=== PATIENT | male | born 1945 | race Caucasian/White ===

== ENCOUNTER 2016-11-04 08:07 | Emergency (ER) | payer MEDICARE, OTHER, MEDICAID ==
[2016-11-04 08:25] VITALS: BP 156/71
--- NOTE | 2016-11-04 08:43 | UC ---
Hand/Wrist HPI - HPI Summary HPI Summary: FOOSH LEFT HAND 1 MONTH AGO AFTER SLIPPING ON ICE. WRIST PAIN HAS IMPROVED BUT PT HAS PERSISTENT PAIN AND SWELLING IN THUMB. - History Of Current Complaint Chief Complaint: UCUpperExtremity Stated Complaint: WRIST INJURY Time Seen by Provider: 11/04/16 08:36 Hx Obtained From: Patient Onset/Duration: Sudden Onset, Lasting Weeks, Still Present Severity Initially: Moderate Severity Currently: Mild Pain Intensity: 1 Pain Scale Used: 0-10 Numeric Character Of Pain: Aching Aggravating Factor(s): Movement Alleviating: Rest Associated Signs And Symptoms: Positive: Swelling Related History: Dominant Hand Right - Allergies/Home Medications Allergies/Adverse Reactions: Allergies Allergy/AdvReac Type Severity Reaction Status Date / Time Colesevelam [From Welchol] Allergy Severe Diarrhea Verified 11/04/16 08:16 Oxycodone Allergy Intermediate Rash Verified 11/04/16 08:16 Statins Allergy Intermediate Rash Verified 11/04/16 08:16 Dust Mite Extract Allergy Mild See Comment Verified 11/04/16 08:16 Molds & Smuts Allergy Mild Rash Verified 11/04/16 08:16 Atorvastatin [From Lipitor] Allergy Unknown Verified 11/04/16 08:16 Reaction Details Cholestyramine Allergy Rash Verified 11/04/16 08:16 Fenofibrate Allergy Unknown Verified 11/04/16 08:16 Reaction Details Gemfibrozil Allergy Unknown Verified 11/04/16 08:16 Reaction Details Niacin [From Niaspan] Allergy Unknown Verified 11/04/16 08:16 Reaction Details Pravastatin Allergy Unknown Verified 11/04/16 08:16 Reaction Details Simvastatin [From Zocor] Allergy Unknown Verified 11/04/16 08:16 Reaction Details Tamsulosin [From Flomax] Allergy Unknown Verified 11/04/16 08:16 Reaction Details cat dander* Allergy Intermediate Sneezing Uncoded 08/17/16 15:31 Home Medications: Home Medications Docusate CAP* [Colace Cap*] 1 tab PO PRN 11/04/16 [History] Metoprolol Tartrate TAB* [Lopressor TAB*] 1 tab PO DAILY 11/04/16 [History Confirmed 11/04/16] Polyethylene Glycol 3350* [Miralax*] 1 packet PO PRN 11/04/16 [History] PMH/Surg Hx/FS Hx/Imm Hx Endocrine History Of: Denies: Diabetes, Thyroid Disease Cardiovascular History Of: Reports: Cardiac Disorders - poss will need pacemaker , Hypertension Denies: Pacemaker/ICD Respiratory History Of: Reports: Asthma Denies: COPD GI/ History Of: Denies: Ulcer, Renal Disease Neurological History Of: Reports: TIA - 2015 Psychological History Of: Reports: Anxiety Cancer History Of: Reports: Prostate Cancer - Surgical History Surgical History: Yes Surgery Procedure, Year, and Place: Deviated septum surgery;. 2011 - Bone spur removal Left foot. VASECTOMY - Family History Known Family History: Positive: Cardiac Disease, Diabetes Family History: Fhx of HLD - Social History Alcohol Use: None Substance Use Type: None Smoking Status (MU): Never Smoked Tobacco - Immunization History Most Recent Influenza Vaccination: 2015/2016 Review of Systems Constitutional: Negative Skin: Negative Respiratory: Negative Cardiovascular: Negative Gastrointestinal: Negative Musculoskeletal: Arthralgia, Decreased ROM, Edema All Other Systems Reviewed And Are Negative: Yes Physical Exam Triage Information Reviewed: Yes Appearance: Well-Appearing, No Pain Distress, Well-Nourished Vital Signs: Initial Vital Signs Temp 96.9 F 11/04/16 08:17 Pulse 64 11/04/16 08:17 Resp 17 11/04/16 08:17 BP 156/71 11/04/16 08:17 Pulse Ox 98 11/04/16 08:17 Vital Signs Reviewed: Yes Eyes: Positive: Conjunctiva Clear ENT: Positive: Hearing grossly normal Neck: Positive: Supple Respiratory: Positive: No respiratory distress, No accessory muscle use Cardiovascular: Positive: Pulses Normal Abdomen Description: Positive: Soft Musculoskeletal: Positive: ROM Limited @ - LEFT THUMB AND WRIST, Edema @ - SLIGHT SWELLING LEFT 1ST MCP JOINT, Other: - NEG FINKELSTEINS. MILD TENDERNESS OVER CARPAL BONES AND OVER ANATOMICAL SNUFFBOX LEFT WRIST Neurological: Positive: Alert Psychological: Positive: Age Appropriate Behavior Skin: Negative: rashes Diagnostics - Radiology LEFT WRIST XRAY Xray Interpretation: Positive (See Comments) - OSTEOARTHRITIS WITH A PROBABLE NONDISPLACED FRACTURE OF THE SCAPHOID Radiology Interpretation Completed By: Radiologist LEFT THUMB XRAY Xray Interpretation: No Acute Changes Radiology Interpretation Completed By: Radiologist Hand/Wrist Course/Dx - Differential Dx/Diagnosis Provider Diagnoses: LEFT SCAPHOID FRACTURE Discharge - Discharge Plan Condition: Stable Disposition: HOME Patient Education Materials: Scaphoid Fracture (ED) Referrals: Pawel Wilson MD [Medical Doctor] - 1 Week Leo Cardona MD [Primary Care Provider] - If Needed Additional Instructions: KEEP THE SPLINT ON AT ALL TIMES UNTIL OTHERWISE ADVISED BY ORTHO. OKAY TO REMOVE FOR A QUICK SHOWER.
--- NOTE | 2016-11-04 09:10 | RAD ---
HISTORY: Subacute trauma, persistent left wrist pain COMPARISONS: None VIEWS: 3, Frontal, lateral, and oblique views left wrist FINDINGS: BONE DENSITY: Normal. BONES: There is a probable nondisplaced fracture of the scaphoid. 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 ALIGNMENT: There is no dislocation. SOFT TISSUES: Unremarkable. OTHER FINDINGS: None. IMPRESSION: OSTEOARTHRITIS WITH A PROBABLE NONDISPLACED FRACTURE OF THE SCAPHOID
--- NOTE | 2016-11-04 09:20 | RAD ---
Indication: Fall, persistent left thumb pain. 3 views of the left thumb demonstrates no fracture. There is bony fragment which may be sequela from prior injury at the dorsal aspect of the interphalangeal joint. Degenerative changes of the trapezium first metacarpal joint is noted. IMPRESSION: Likely sequela of prior injury with no definite recent fracture.
== END 2016-11-04 09:48 | disposition home or self-care (01) ==
LOC: UCEAST 08:07
DX: M25.532 Pain in left wrist (principal); M19.032 Primary osteoarthritis, left wrist; M79.645 Pain in left finger(s); Z88.5 Allergy status to narcotic agent; Z88.8 Allergy status to other drugs, medicaments and biological substances
CPT/HCPCS: 99213; G0463

== ENCOUNTER 2016-11-25 04:26 | Observation (INO) | payer MEDICARE, OTHER ==
[2016-11-25] MEDS ORDERED: Aspirin Low Dose CHEW TAB* 81 MG PO ONE (04:55)
--- NOTE | 2016-11-25 05:20 | ED ---
Ethan Butler Billy, scribed for Torrey Patton MD on 11/25/16 at 0452 . HPI Chest Pain - HPI Summary HPI Summary: Patient is a 71 year-old male coming to [facility] presenting with constant left anterior chest pain since 0240 this morning. Severity 2/10. He states that the pain is worse with deep breaths. He has had similar symptoms in the past before , although he cannot recall his last episode prior to today. He is unable to describe the quality of his pain today, but he states it is "constant but not stabbing." ASA taken [employer]. He has had 2 weeks of cold-like symptoms prior to today. Denies any fevers, although Dr. Cardona recently prescribed him antibiotics. Follows Dr. Khan for cardiology. - History of Current Complaint Chief Complaint: EDChestPainROMI Time Seen by Provider: 11/25/16 04:48 Hx Obtained From: Patient Onset/Duration: Started Hours Ago, Still Present Time of Onset: 02:40 Timing: Constant Initial Severity: Moderate Current Severity: Moderate Pain Intensity: 2 Pain Scale Used: 0-10 Numeric Chest Pain Location: Left Anterior Chest Pain Radiates: No Aggravating Factor(s): Deep Breaths Alleviating Factor(s): Nothing Associated Signs and Symptoms: Positive: Chest Pain - Additional Pertinent History Primary Care Physician: TOBIAS - Allergy/Home Medications Allergies/Adverse Reactions: Allergies Allergy/AdvReac Type Severity Reaction Status Date / Time Colesevelam [From Welchol] Allergy Severe Diarrhea Verified 11/25/16 05:47 Oxycodone Allergy Intermediate Rash Verified 11/25/16 05:47 Statins Allergy Intermediate Rash Verified 11/25/16 05:47 Dust Mite Extract Allergy Mild See Comment Verified 11/25/16 05:47 Molds & Smuts Allergy Mild Rash Verified 11/25/16 05:47 Atorvastatin [From Lipitor] Allergy Unknown Verified 11/25/16 05:47 Reaction Details Cholestyramine Allergy Rash Verified 11/25/16 05:47 Fenofibrate Allergy Unknown Verified 11/25/16 05:47 Reaction Details Gemfibrozil Allergy Unknown Verified 11/25/16 05:47 Reaction Details Niacin [From Niaspan] Allergy Unknown Verified 11/25/16 05:47 Reaction Details Pravastatin Allergy Unknown Verified 11/25/16 05:47 Reaction Details Simvastatin [From Zocor] Allergy Unknown Verified 11/25/16 05:47 Reaction Details Tamsulosin [From Flomax] Allergy Unknown Verified 11/25/16 05:47 Reaction Details cat dander* Allergy Intermediate Sneezing Uncoded 11/25/16 05:47 Home Medications: Home Medications Verapamil SR TAB* [Calan Sr TAB*] 120 mg PO QPM 11/25/16 [History Confirmed ] PMH/Surg Hx/FS Hx/Imm Hx Endocrine/Hematology History: Denies: Hx Diabetes, Hx Thyroid Disease Cardiovascular History: Reports: Hx Hypercholesterolemia, Hx Hypertension Denies: Hx Pacemaker/ICD Respiratory History: Reports: Hx Asthma Denies: Hx Chronic Obstructive Pulmonary Disease (COPD) GI History: Denies: Hx Ulcer History: Reports: Other Problems/Disorders - prostate CA in 2014 Denies: Hx Renal Disease Sensory History: Reports: Hx Contacts or Glasses Denies: Hx Hearing Aid Opthamlomology History: Reports: Hx Contacts or Glasses Neurological History: Reports: Hx Transient Ischemic Attacks (TIA) - 2014 Psychiatric History: Reports: Hx Anxiety Denies: Hx Panic Disorder - Cancer History Cancer Type, Location and Year: prostate CA, 2015 - Surgical History Surgery Procedure, Year, and Place: Deviated septum surgery;. 2011 - Bone spur removal Left foot. VASECTOMY Infectious Disease History: Yes Infectious Disease History: Reports: Hx Shingles - 2013 Denies: Hx Clostridium Difficile, Hx Hepatitis, Hx Human Immunodeficiency Virus (HIV), Hx of Known/Suspected MRSA, Hx Tuberculosis, Hx Known/Suspected VRE , Hx Known/Suspected VRSA, History Other Infectious Disease, Traveled Outside the [place] in Last 30 Days - Family History Known Family History: Positive: Cardiac Disease, Diabetes Family History: Fhx of HLD - Social History Alcohol Use: None Substance Use Type: Reports: None Hx Tobacco Use: No Smoking Status (MU): Never Smoked Tobacco Review of Systems Negative: Fever Positive: Chest Pain Positive: Other - left wrist sprain All Other Systems Reviewed And Are Negative: Yes Physical Exam Triage Information Reviewed: Yes Vital Signs On Initial Exam: Initial Vitals Temp Pulse Resp BP Pulse Ox 97.9 F 62 18 154/90 98 11/25/16 04:28 11/25/16 04:28 11/25/16 04:28 11/25/16 04:28 11/25/16 04:28 Vital Signs Reviewed: Yes Appearance: Positive: Well-Appearing, No Pain Distress Skin: Positive: Warm Head/Face: Positive: Normal Head/Face Inspection Eyes: Positive: SHERRY ENT: Positive: Hearing grossly normal Neck: Positive: Supple Respiratory/Lung Sounds: Positive: Clear to Auscultation, Breath Sounds Present Cardiovascular: Positive: RRR Abdomen Description: Positive: Nontender, Soft Bowel Sounds: Positive: Present Musculoskeletal: Positive: Strength/ROM Intact Neurological: Positive: Sensory/Motor Intact, Alert, Oriented to Person Place, Time Diagnostics - Vital Signs Vital Signs Temp Pulse Resp BP Pulse Ox 11/25/16 04:28 97.9 F 62 18 154/90 98 - Laboratory Result Diagrams: 11/25/16 05:15 11/25/16 05:15 Lab Statement: Any lab studies that have been ordered have been reviewed, and results considered in the medical decision making process. - Radiology CXR Xray Interpretation: No Acute Changes Radiology Interpretation Completed By: ED Physician - EKG 0443 EKG Interpretation: NSR 60 bpm, non-specific ST abnormalities. Chest Pain Course/Dx - Diagnoses Provider Diagnoses: ACS (acute coronary syndrome) - Provider Notifications Discussed Care Of Patient With: Dr. Lara (hospitalist) @ 0545: accepts admission. Discharge - Discharge Plan Condition: Fair Disposition: ADMITTED TO [facility] Referrals: Leo Cardona MD [Primary Care Provider] - The documentation as recorded by the Ethan pope Billy accurately reflects the service I personally performed and the decisions made by me, Torrey Patton MD.
[2016-11-25 05:33] LABS: Hematocrit 40 % (42-52); Hemoglobin 13.6 g/dl (14.0-18.0); Mean Corpuscular HGB Conc 34 g/dl (31-36); Mean Corpuscular Hemoglobin 30 pg (27-31); Mean Corpuscular Volume 89 fL (80-94); Mean Platelet Volume 8 um3 (7.4-10.4); Red Blood Count 4.55 10^6/ul (4.0-5.4); Red Cell Distribution Width 13 % (10.5-15); White Blood Count 5.2 10^3/ul (3.5-10.8)
[2016-11-25 06:04] LABS: Albumin 3.9 g/dL (3.2-5.2); BUN/Creatinine Ratio 13.3 (8-20); Calcium 9.5 mg/dL (8.6-10.3); EGFR African American 131.3 (>60); EGFR Non-African American 102.1 (>60); Globulin 2.9 g/dL (2-4); Magnesium 2.3 mg/dL (1.9-2.7); Potassium 3.4 mmol/L (3.5-5.0); Total Bilirubin 0.4 mg/dL (0.2-1.0); Total Protein 6.8 g/dL (6.4-8.9)
[2016-11-25] MEDS ORDERED: clonazePAM TAB(*) 0.5 MG PO PRN (06:08)
[2016-11-25] MEDS ORDERED: Albuterol HFA INHALER* 8 gm MDI INH PRN (06:08)
[2016-11-25] MEDS ORDERED: Potassium Chlor TAB* 20 MEQ TAB.ER PO SCH (08:00)
--- NOTE | 2016-11-25 08:01 | RAD ---
INDICATION: Chest pain COMPARISON: Most recent comparison chest x-rays dated August 12, 2016 TECHNIQUE: PA and lateral views of the chest were obtained. FINDINGS: The heart and mediastinum are normal in size and contour. The lungs are grossly clear. There is no evidence of large pleural effusion. Visualized bones are normal for the patient's age. There is no radiographic evidence of free air beneath the diaphragm IMPRESSION: No radiographic evidence of acute cardiopulmonary disease.
[2016-11-25] MEDS ORDERED: Metoprolol Tartrate TAB* 25 MG PO SCH (08:30)
[2016-11-25] MEDS ORDERED: Losartan TAB* 25 MG PO SCH (09:00)
[2016-11-25] MEDS ORDERED: Triamterene/HCTZ 37.5-25 MG* CAP PO SCH (09:00)
[2016-11-25] MEDS ORDERED: Azelastine 0.15% NASAL(NF) 30 ML BTL BOTH NARES SCH (09:00)
[2016-11-25] MEDS ORDERED: Docusate CAP* 100 MG PO SCH (09:00)
[2016-11-25] MEDS ORDERED: Verapamil SR TAB* 240 MG PO SCH ×3 (09:00→18:00)
[2016-11-25] MEDS ORDERED: Lisinopril TAB* 10 MG PO SCH (09:00)
[2016-11-25] MEDS ORDERED: Aspirin EC Low Dose* 81 MG TAB.EC PO SCH (09:00)
[2016-11-25] MEDS ORDERED: Polyethylene Glycol 3350* 17 GM PACKET PO SCH (09:00)
--- NOTE | 2016-11-25 10:14 | HP ---
HISTORY AND PHYSICAL: DATE OF ADMISSION: 11/25/16 CHIEF COMPLAINT: Chest pain. HISTORY OF PRESENT ILLNESS: The patient is a 71-year-old gentleman who said about 2:40 this morning he woke up to urinate which he often does, and then suddenly felt some chest pain. He was not exerting himself. The patient was about 2/10 in severity. It was left hand side of his chest, and was an achy type pain. He has had no radiation of the pain. No shortness of breath. He was not sweating. He was not dizzy. When he was got to the hospital, his anxiety was relieved and his pain resolved without any medications. It should be noted he worked out just yesterday for 45 minutes with no pain. PAST MEDICAL HISTORY: Significant for hypertension, hyperlipidemia, prostate cancer, status post radiation therapy in 2014, BPH, anxiety, and GERD. MEDICATIONS: His current medications are as follows: 1. Verapamil 120 mg in the evening. 2. Astepro one spray both nares twice daily. 3. Aspirin 81 mg daily. 4. Albuterol inhaler one puff four times a day as needed. 5. Docusate one tab twice a day. 6. Calcium carbonate with cholecalciferol one tablet twice a week. 7. Lisinopril 40 mg daily. 8. Evolocumab 140 mg subcu q. 14 days. 9. Flaxseed two capsules daily. 10. Losartan 50 mg twice daily. 11. Ibuprofen 200 mg every 8 hours as needed. 12. Metoprolol tartrate one tab daily. 13. Potassium chloride 20 mEq twice daily. 14. MiraLax one pack daily. 15. Verapamil 240 mg in the morning. 16. Dyazide 37.5/25 one capsule daily. 17. Clonazepam 0.5 mg three times a day as needed. 18. Tylenol 650 mg every 6 hours as needed. ALLERGIES/ADVERSE REACTIONS: 1. WELCHOL. 2. OXYCODONE. 3. STATINS. 4. DUST MITE EXTRACT, MOLDS AND SMUTS. 5. LIPITOR. 6. CHOLESTYRAMINE. 7. FENOFIBRATE. 8. GEMFIBROZIL. 9. NIACIN. 10. PRAVASTATIN. 11. SIMVASTATIN. 12. TAMSULOSIN. 13. CAT DANDER. FAMILY HISTORY: Mother at 83 from diabetes and NM. Father at age 67 of an unknown cause. SOCIAL HISTORY: No tobacco, alcohol, or recreational drug use. Retired. Works for [employer]. He is . His , Yanet Ramirez, is his healthcare proxy. He has two children. REVIEW OF SYSTEMS: A 14-point review of systems was completed with the patient. All pertinent positives and negatives are in the history of present illness; otherwise is negative. PHYSICAL EXAMINATION GENERAL: Pleasant gentleman lying in bed, in no acute distress. VITAL SIGNS: Blood pressure 150/74, pulse ox 97%, respiratory rate 14 breaths per minute, heart rate 65 beats per minute, temperature 97.9 degrees. HEENT: Normocephalic, atraumatic. Pupils are equal, round, and reactive to light. Moist mucous membranes. NECK: Supple. No JVD, bruits, palpable thyroid, or lymphadenopathy. CHEST: Clear to auscultation and percussion bilaterally. CARDIOVASCULAR: S1, S2 appreciated. Regular rate and rhythm. ABDOMEN: Positive bowel sounds in all 4 quadrants. Soft, nontender, and nondistended. No hepatosplenomegaly. EXTREMITIES: No cyanosis, clubbing, or edema; +2 peripheral pulses bilaterally. NEUROLOGIC: Alert and oriented x3. Moves all extremities. SKIN: No rashes or abnormalities. DIAGNOSTIC STUDIES/LAB DATA: White count 5.2, hemoglobin 13.6, hematocrit 40, platelets 317. Sodium 140, potassium 3.4, chloride 105, CO2 28, BUN 10, creatinine 0.75, glucose 96. INR 0.89. Chest x-ray, preliminary - it looks like no apparent infiltrates. EKG shows normal sinus rhythm at 60 beats per minute. He has normal axis. No acute ST-T wave changes. ASSESSMENT AND PLAN: 1. Chest pain. I think it is unlikely to be cardiac in etiology. It was nonexertional. It is fairly atypical. However, he does have risk factors, and hasn't had a stress test in over a year. I will rule him out for an NM, get a nuclear stress test. If that is negative, he can likely leave later today. 2. Hypertension: Not well controlled. Continue current regimen and adjust medications accordingly. 3. Hyperlipidemia: He has an ALLERGY TO STATINS, mostly diet controlled, monitor. 4. Fluids, Electrolytes, Nutrition: NPO. Awaiting stress test. 5. Deep venous thrombosis prophylaxis: Heparin subcu. 6. The patient is a full code. TIME SPENT: Over 75 minutes were spent on this H and P, more than 40 minutes of which were spent in direct [id number] contact with the patient in evaluation, physical exam, counseling, and coordination of care. CC: Dr. Leo Cardona* [id number]/[facility] #: [id number] MTDD
[2016-11-25 11:12] VITALS: BP 166/79
[2016-11-25] MEDS ORDERED: Regadenoson* 0.4 MG/5 ML SYRINGE ONE (11:39)
--- NOTE | 2016-11-25 13:08 | RAD ---
Edited for charges. INDICATION: Chest pain, hypertension, family history of heart disease. COMPARISON: None. TECHNIQUE: 10.100 mCi of Tc-99m Myoview were administered IV. SPECT images of the heart were obtained. Later on the same day, under the direction of Dr. Motley, the patient was given an IV injection of a pharmacologic stress agent. Subsequently, the patient was given an IV injection of 25.900 mCi Tc-99m Myoview. SPECT images of the heart were obtained and a gated wall motion study was performed. FINDINGS: Gated wall motion images were obtained at stress and demonstrate wall motion to be within normal limits. Calculated left ventricular ejection fraction is 78 % at stress. Estimated LEFT ventricular end diastolic volume is 61 mL. TID 1.0. Based on review of the attenuation corrected and non corrected images the distribution of radiopharmaceutical within the myocardium on the stress and rest images is within normal limits. No fixed or reversible regions of hypoperfusion evident. IMPRESSION: 1. No evidence for stress induced myocardial ischemia or presence of an infarct. 2. Normal left ventricular wall motion and ejection fraction. ASSESSMENT: Low risk. Based on imaging criteria from ACC/AHA 2002 Guideline Update for the Management of Patients With Chronic Stable Angina Table 23. Noninvasive Risk Stratification. MTDD
--- NOTE | 2016-11-25 13:47 | DCNOTE ---
Patient seen this afternoon. No recurrence of symptoms. Feels well. On exam, RRR, s1 and s2 present, JOSE DAVID, lungs cta B/L, abd soft, NTND, BS+ D/C home with PCP f/u. Complete outpatient ABx therapy.
[2016-11-25] MEDS ORDERED: Heparin VIAL(*) 5000 UNITS/ML VIAL (FIVE THOUSAND) SUBCUT SCH (14:00)
[2016-11-25] MEDS ORDERED: Verapamil TAB* 120 MG PO SCH (18:00)
--- NOTE | 2016-11-26 04:38 | DS ---
DISCHARGE SUMMARY: DATE OF ADMISSION: 11/25/16 DATE OF DISCHARGE: 11/25/16 PRINCIPAL DISCHARGE DIAGNOSIS: Chest pain. SECONDARY DIAGNOSES: 1. Hypertension. 2. Hyperlipidemia. 3. Prostate cancer, status post radiation therapy. 4. Benign prostatic hypertrophy. 5. Anxiety. 6. Gastroesophageal reflux disease. DISCHARGE MEDICATION REGIMEN: 1. Klonopin 0.5 mg by mouth 3 times daily as needed for anxiety. 2. Triamterene/hydrochlorothiazide 37.5/25 mg 1 capsule by mouth daily. 3. Verapamil 360 mg by mouth daily. 4. MiraLax one packet by mouth daily. 5. Potassium chloride 20 mEq by mouth 2 times daily. 6. Metoprolol tartrate 25 mg by mouth daily. 7. Ibuprofen 200 mg by mouth every 8 hours as needed for pain. 8. Losartan 50 mg by mouth 3 times daily. 9. Flaxseed 2 capsules by mouth daily. 10. Evolocumab 140 mg subcutaneous every 2 weeks. 11. Lisinopril 40 mg by mouth daily. 12. Calcium carbonate and vitamin D 1 tablet by mouth 2 times a week. 13. Colace 1 tablet by mouth 2 times daily. 14. Albuterol 1 puff inhale 4 times daily as needed for shortness of breath or wheezing. 15. Aspirin 81 mg by mouth daily. 16. Astepro 1 spray in both nares 2 times daily. STUDIES DONE DURING HOSPITALIZATION: Chest x-ray, impression: No radiographic evidence of acute ca rdiopulmonary disease. Nuclear cardiac stress test, impression: No evidence for stress-induced myocardial ischemia or pres ence of an infarct. Normal left ventricular wall motion and ejection fraction. HISTORY OF PRESENT ILLNESS AND HOSPITAL SUMMARY: Please see the full history and physical by Dr. Ever Lara for full details. Briefly, Mr. 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 The patient was monitored overnight on telemetry, which was unremarkable. His troponins were trended, which remained negative and he had nuclear cardiac stress test that was also unremarkable. The patient's symptoms did not return. He will be discharged home. Follow up with his PCP as an outpatient. TIME SPENT: Total time spent on this discharge, 35 minutes. This is the summary of hospitalization, please see the full medical record for further details. [id number]/[facility] #: [id number]
== END 2016-11-25 14:23 | disposition home or self-care (01) ==
LOC: ED 04:26 → MEDTELE 06:47
PROVIDERS: ADMIT Internal Medicine; ATTEND Hospitalist
DX: R07.9 Chest pain, unspecified (principal); I10 Essential (primary) hypertension; E78.5 Hyperlipidemia, unspecified; Z85.46 Personal history of malignant neoplasm of prostate; F41.9 Anxiety disorder, unspecified; K21.9 Gastro-esophageal reflux disease without esophagitis; R00.1 Bradycardia, unspecified; Z79.82 Long term (current) use of aspirin; Z79.899 Other long term (current) drug therapy; Z88.8 Allergy status to other drugs, medicaments and biological substances; M19.032 Primary osteoarthritis, left wrist
CPT/HCPCS: 36415; 71020; 78452; 80053; 83605; 83735; 84484; 85025; 85610; 93005; 93017; 96372; 99284; A9270-GY; A9502; G0378; J1644; J2785

== ENCOUNTER 2017-07-10 08:45 | Day surgery (SDC) | payer MEDICARE, OTHER ==
[~2017-07-10 08:45] MED LIST: Acetaminophen TAB* 325 MG PO PRN; Buffered Lidocaine 0.9% SYRIN* 5 ML/SYR SYRINGE INTRADERM ONE
[2017-07-10] MEDS ORDERED: Acetaminophen TAB* 325 MG PO PRN (08:58)
[2017-07-10] MEDS ORDERED: fentaNYL* 50 MCG/ML 2 ML VIAL (100 MCG VIAL) ONE (09:40)
[2017-07-10] MEDS ORDERED: Midazolam* 1 MG/ML 2 ML VIAL (2 MG) ONE (09:40)
[2017-07-10 11:01] VITALS: BP 139/87
[2017-07-10] MEDS ORDERED: Povidone Iodine 5% OPTH* 30 ML BTL ONE (16:12)
[2017-07-10] MEDS ORDERED: Neomycin/Polymy/Dex OPHTH.OIN* 3.5 GM ONE (16:12)
[2017-07-10] MEDS ORDERED: Tropicamide 1% OPTH.SOL* BTL ONE (16:12)
[2017-07-10] MEDS ORDERED: Phenylephrine 2.5% OPTH.SOL* 2 ML BTL ONE (16:12)
[2017-07-10] MEDS ORDERED: acetaZOLAMIDE TAB* 250 MG ONE (16:12)
[2017-07-10] MEDS ORDERED: Buffered Lidocaine 0.9% SYRIN* 5 ML/SYR SYRINGE ONE (16:12)
[2017-07-10] MEDS ORDERED: Ketorolac 0.5% OPHTH (NF) 0.5 % 5 ML BTL ONE (16:12)
[2017-07-10] MEDS ORDERED: Cyclopentolate 1% OPTH.SOL* 2 ML BTL ONE (16:12)
[2017-07-10] MEDS ORDERED: Tetracaine 0.5% OPTH.SOL 4 ML* 1 DROP BTL ONE (16:12)
[2017-07-10] MEDS ORDERED: Lidocaine 1% MPF* 2 ML VIAL ONE (16:12)
--- NOTE | 2017-07-11 01:56 | OP ---
DATE OF OPERATION: 07/10/17 - [facility] DATE OF : 41 SURGEON: Romeo Mayo MD ANESTHESIOLOGIST: Toby Barcenas MD ANESTHESIA: Monitored anesthesia care. PRE-OP DIAGNOSIS: Cataract, left eye. POST-OP DIAGNOSIS: Cataract, left eye. OPERATIVE PROCEDURE: Cataract surgery of left eye. IMPLANTS: SN60WF 14.0 diopter lens to the left eye. COMPLICATIONS: None. DESCRIPTION OF PROCEDURE: The patient was given phenylephrine 2.5% and cyclopentolate 1% eye drops to the operative eye in the preoperative area. The patient was brought to the operating room where a time-out was taken to identify the correct patient, site, and side of the surgery. The patient's left eye was prepped and draped in the usual sterile fashion with 5% Betadine. A second time- out was taken to verify the correct patient, site, and side of surgery, and correct lens selection. A lid speculum was placed to the left eye. A 1-mm paracentesis blade was used to make a clear corneal incision in the inferotemporal position. Preservative-free 1% lidocaine was injected into the anterior chamber. DisCoVisc was then injected into the anterior chamber. A 2.75-mm keratome blade was used to make a triplanar incision at the superotemporal position. A cystotome initiated a capsulorrhexis, which was completed with Utrata forceps in a continuous and curvilinear manner. Hydrodissection of the lens was performed with BSS on a cannula. The lens could be spun in the capsular bag. The phacoemulsification handpiece was used with a ziorxk-ecn-arscmby technique to remove the nucleus in its entirety with 18.42 CDE. The I/A handpiece then removed the residual cortical lens material. DisCoVisc was injected to inflate the capsular bag. The planned SN60WF 14.0 diopter lens was injected into the capsular bag. The residual DisCoVisc was removed from the eye with the I/A handpiece. The corneal incisions were hydrated and no leaks occurred at physiologic pressure around 20 mmHg per palpation. The lid speculum was removed and drapes removed. Maxitrol ointment was placed on the surface of the operative eye. An adhesive patch and shield was placed on the operative eye. The patient was taken to the postoperative area in stable condition. [id number]/[facility] [place] #: [id number] [facility]
== END 2017-07-10 11:07 | disposition home or self-care (01) ==
LOC: OREAST 08:45
PROVIDERS: ATTEND Student in an Organized Health Care Education/Training Program
DX: H25.13 Age-related nuclear cataract, bilateral (principal); I10 Essential (primary) hypertension; E78.5 Hyperlipidemia, unspecified; J30.1 Allergic rhinitis due to pollen; Z85.46 Personal history of malignant neoplasm of prostate; Z88.8 Allergy status to other drugs, medicaments and biological substances; Z79.82 Long term (current) use of aspirin; I47.1 Supraventricular tachycardia; J45.909 Unspecified asthma, uncomplicated; Z86.73 Personal history of transient ischemic attack (TIA), and cerebral infarction without residual deficits; F41.9 Anxiety disorder, unspecified
CPT/HCPCS: A9270-GY; J2250; J3010; V2632

== ENCOUNTER 2017-07-17 07:11 | Day surgery (SDC) | payer MEDICARE, OTHER ==
[~2017-07-17 07:11] MED LIST changes: -Acetaminophen TAB* 325 MG PO PRN
[2017-07-17] MEDS ORDERED: Cyclopentolate 1% OPTH.SOL* 2 ML BTL ONE (08:03)
[2017-07-17] MEDS ORDERED: acetaZOLAMIDE TAB* 250 MG ONE (08:03)
[2017-07-17] MEDS ORDERED: Lidocaine 1% MPF* 2 ML VIAL ONE (08:03)
[2017-07-17] MEDS ORDERED: Povidone Iodine 5% OPTH* 30 ML BTL ONE (08:03)
[2017-07-17] MEDS ORDERED: Buffered Lidocaine 0.9% SYRIN* 5 ML/SYR SYRINGE ONE (08:03)
[2017-07-17] MEDS ORDERED: Neomycin/Polymy/Dex OPHTH.OIN* 3.5 GM ONE (08:03)
[2017-07-17] MEDS ORDERED: Tropicamide 1% OPTH.SOL* BTL ONE (08:03)
[2017-07-17] MEDS ORDERED: Phenylephrine 2.5% OPTH.SOL* 2 ML BTL ONE (08:03)
[2017-07-17] MEDS ORDERED: Tetracaine 0.5% OPTH.SOL 4 ML* 1 DROP BTL ONE (08:03)
[2017-07-17] MEDS ORDERED: Ketorolac 0.5% OPHTH (NF) 0.5 % 5 ML BTL ONE (08:04)
[2017-07-17] MEDS ORDERED: Midazolam* 1 MG/ML 2 ML VIAL (2 MG) ONE (08:39)
[2017-07-17 09:22] VITALS: BP 129/69
--- NOTE | 2017-07-17 10:09 | OP ---
DATE OF OPERATION: 07/17/17 - [facility] DATE OF : 41 SURGEON: Romeo Mayo MD ANESTHESIOLOGIST: Rigo Andre DO ANESTHESIA: Monitored anesthesia care. PRE-OP DIAGNOSIS: Cataract, right eye. POST-OP DIAGNOSIS: Cataract, right eye. OPERATIVE PROCEDURE: Cataract surgery of the right eye. IMPLANTS: SN60WF 14.5 Diopter lens to the right eye. COMPLICATIONS: None. DESCRIPTION OF PROCEDURE: The patient was given phenylephrine 2.5% and cyclopentolate 1% eye drops to the operative eye in the preoperative area. The patient was brought to the operating room, where a time-out was taken to identify the correct patient, site, and side of surgery. The patient's right eye was prepped and draped in the usual sterile fashion with 5% Betadine. A second time- out was taken to verify the correct patient, site, and side of surgery, and correct lens selection. A lid speculum was placed to the right eye. A 1-mm paracentesis blade was used to make a clear corneal incision in the superotemporal position. Preservative-free 1% lidocaine was injected into the anterior chamber. DisCoVisc was then injected into the anterior chamber. A 2.75-mm keratome blade was used to make a triplanar incision at the inferotemporal position. A cystotome initiated a capsulorrhexis, which was completed with Utrata forceps in a continuous and curvilinear manner. Hydrodissection of the lens was performed with BSS on a cannula. The lens could be spun in the capsular bag. The phacoemulsification handpiece was used with a [id number] technique to remove the nucleus in its entirety with 21.93 CDE. The I/A handpiece then removed the residual cortical lens material. DisCoVisc was injected to inflate the capsular bag. The planned SN60WF 14.5 diopter lens was injected into the capsular bag. The residual DisCoVisc was removed from the eye with the I/A handpiece. The corneal incisions were hydrated and no leaks occurred at physiologic pressure around 20 mmHg per palpation. The lid speculum was removed and drapes removed. Maxitrol ointment was placed on the surface of the operative eye. An adhesive patch and shield was placed on the operative eye. The patient was taken to the postoperative area in stable condition. [id number]/[facility] #: [id number] MTDRon
== END 2017-07-17 09:47 | disposition home or self-care (01) ==
LOC: OREAST 07:11
PROVIDERS: ATTEND Student in an Organized Health Care Education/Training Program
DX: H25.11 Age-related nuclear cataract, right eye (principal); Z96.1 Presence of intraocular lens; I10 Essential (primary) hypertension; F41.9 Anxiety disorder, unspecified; E78.5 Hyperlipidemia, unspecified; J30.1 Allergic rhinitis due to pollen; Z85.46 Personal history of malignant neoplasm of prostate; Z86.73 Personal history of transient ischemic attack (TIA), and cerebral infarction without residual deficits; Z79.82 Long term (current) use of aspirin; Z88.8 Allergy status to other drugs, medicaments and biological substances
CPT/HCPCS: A9270-GY; J2250; V2632

== ENCOUNTER 2018-02-09 05:41 | Emergency (ER) | payer MEDICARE, OTHER ==
--- OUTSIDE RECORDS SUMMARY | 2018-02-09 06:00 | XMS REPORT ---
:1945 External Reference #:[id number] Author Organization [employer] Address [address] [address] Phone [phone] Care Team Providers Name Role Phone Leo Cardona MD Primary Care Physician Unavailable Payers Type Date Identification Numbers Payment Provider Subscriber Medicare Primary Effective: Policy Number: Medicare Chan Barraza 2008 [id number] PayID: [id number] [address] [place] [address] Medigap Part B Policy Number: [id number] [facility] Chan Barraza PayID: [id number] [address] [address] [place] [address] Medigap Part B Expires: 2008 Policy Number: [employer] Chan Barraza [id number] Group Number: [id number] [address] PayID: [id number] [place] [address] Problems Date Description Provider Status Onset: 01/03/2012 Benign essential hypertension Sawyer Oseguera M.D. Onset: 01/03/2012 Hyperlipidemia Sawyer Oseguera M.D. Onset: 11/05/2012 Electrocardiogram abnormal Sawyer Oseguera M.D. Onset: 02/25/2014 Heart murmur RUTH ANN Hope Active Onset: 02/25/2014 Malaise and fatigue RUTH ANN Hope Active Onset: 11/23/2015 Essential hypertension RUTH ANN Hope Active Onset: 12/27/2016 Localized, primary osteoarthritis Ian Rasheed MD Active of the hand Social History Type Date Description Comments Marital Status Lives With Occupation Retired ETOH Use Liquor 2 ounces daily Smoking Patient has never smoked Recreational Drug Use Denies Drug Use Daily Caffeine Comsumes on average 1 cup of decaff coffee per day Exercise Type/Frequency Exercises regularly Allergies, Adverse Reactions, Alerts Date Description Reaction Status Severity Comments 12/12/2008 Zocor active skin rash 03/23/2009 Gemfibrozil active rash and itching 03/23/2009 Niaspan active rash and itching 12/08/2010 Pravastatin rash, rash active 03/20/2014 Fenofibrate fatigue, headaches active 08/11/2014 Lipitor rash active 08/11/2014 Cholestyramine mouth sores, active constipation 06/04/2015 Flomax active 08/02/2007 NKDA inactive 03/23/2009 Zetia inactive rash and itching Medications Medication Date Status Form Strength Qnty SIG Indications Ordering Provider Amlodipine 12/26 Active Tablets 5mg 30tab 1 tab by I10 Katie Boss Besylate s mouth every N.P. Praluent 07/23 Active Solution 75mg/ml 4ml 1 injection Pen-Inject sc every 2 S. weeks Lyubov Khan Triamterene/Hyd 03/27 Active Capsules 37.5-25mg 90cap 1 PO qd Qutayb rochlorothiaz s Karyn Khan M.D. Metoprolol 09/23 Active Tablets ER 25mg 90tab 1 by mouth Qutaybeh Succinate ER 24HR s every day Karyn Khan M.D. Klor-Con M20 01/14 Active Tablets ER 20Meq 180ta 1 by mouth Qutayb bs twice a day Karyn Khan M.D. Aspirin Ec 11/[address] 81mg 90tab 1 tablet po Qutayb s daily Karyn Khan M.D. Lisinopril 11/05 Active Tablets 20mg 180ta 2 by mouth Qutayb bs every day Karyn Khan M.D. Albuterol 12/12 Active Aerosol 90mcg/Act 1unit one puff am, s one puff pm S. as needed Lyubov Khan Fluticasone 00 Active Suspension 50mcg/Act 1unit 1 spray am, Unknown Propionate s 1 spray pm as needed Multivitamins 00 Active Tablets 90tab 1 po once a Unknown /0000 s week Verapamil HCL Active Tablets ER 240mg 135ta take one tab Qutaybeh ER /0000 bs in the in S. the morning Erin and 1/2 tab DarleneDJoe in the at night Calcium & Active Liquid 1200mg 1 by mouth Unknown Vitamin D3 once a week Acetaminophen Active Tablets 325mg 2 tablets by Unknown / mouth every 6 hours as needed for pain/fever Flaxseed Oil Active 1000mg twice a day Unknown Stool Softener Active Capsules 100mg take 1 tab 4 Unknown /0000 times a week Magnesium Active Tablets 200mg 1 by mouth Unknown / once a week with calcium Glucosamine Active Capsules 500/400 1 tab Unknown Chondroitin alternating with calcium/magn esium Melatonin Active Tablets 3mg once at Unknown /0000 night Azelastine HCL Active Solution 137mcg/Sp 1 squirt Unknown (Nasal) ray each nostril once a day as needed Omeprazole Active Capsules DR 20mg 1 by mouth Unknown / every day as needed Triamcinolone Active Cream 0.1% Apply Unknown Acetonide Topically To Affected Area(S) Two Times Daily -- Avoid Face And (on hold 01/16/18) Repatha 11/23 Hx Solution 140mg/ml inject once E78.5 Qutaybeh Sureclick Auto-Inject s every 2 S. - weeks Erin 07/26 Lyubov Cholestyramine 04/14 Hx Packet 4gm 180pa 1 packet Lashell cks once a day Ana Paula Fontaine M.D. 07/09 Welchol 03/20 Hx Packet 3.75gm 30uni Mix 1 packet Marcellustayb ts with water S. - as directed Erin 04/14 with the Lyubov /2014 largest meal of the day Fenofibrate 02/25 Hx Tablets 145mg 30tab take 1 tab 272.4 yb s po QHS S. - Maghaydah 03/20 , M.D. Potassium 01/14 Hx Tablets ER 20Meq 30tab 1 po qd Qutaybeh Chloride s S. - Maghaydah 01/14 , M.D. /2012 Flonase 11/05 Hx Suspension 50mcg/Act 1unit 2 intranasal Qutayb s puffs to S. - each nostril Maghaydah 07/08 daily prn , M.D. /2012 Zestril 02/23 Hx Tablets 20mg 2 po qd Qutaybeh S. - Maghaydah 11/05 , M.D. /2012 Pravastatin 10/06 Hx Tablets 10mg 1 po qd Qutaybeh Sodium S. - Maghaydah 12/08 , M.D. Pravastatin 05/14 Hx Tablets 10mg 45tab one half po Qutaybeh Sodium s qd S. - Maghaydah 10/06 , M.D. Pravastatin 04/06 Hx Tablets 10mg 30tab 1 po qhs Qutaybeh Sodium s S. - Maghaydah 05/14 , M.D. Flax Seed Oil 01/19 Hx Capsules 1200mg 1 po qd Qutaybeh S. - Maghaydah 02/23 , M.D. Simvastatin 11/19 Hx Tablets 10mg 30tab 1 po hs Qutaybeh s S. - Maghaydah 01/19 , M.D. Fish Oil 11/11 Hx Capsules 1200mg 1 po qd Qutaybeh S. - Maghaydah 01/19 , M.D. Simvastatin 11/11 Hx Tablets 20mg 30tab 1 po qd Qutaybeh s S. - Maghaydah 11/19 , M.D. /2009 Micardis 10/21 Hx Tablets 80mg 90tab 1 po qd Qutaybeh s S. - Maghaydah 10/21 , M.D. /2009 Micardis 10/21 Hx Tablets 80mg 90tab 1 po qd Id # s [id number] S. - Maghaydah 05/19 , M.D. Micardis 10/20 Hx Tablets 80mg 1 po qd [facility]. Simvastatin 09/30 Hx Tablets 10mg 90tab 1 po qhs Conrad s Charity Price, 11/11 M.D. Diovan 08/19 Hx Tablets 80mg 1 po qd [facility] , M.[facility]. Diovan 08/17 Hx Tablets 80mg 90tab 1 po qd [facility] , M.D. Diovan 08/17 Hx Tablets [facility]. Simvastatin 08/07 Hx Tablets 40mg 30tab 1 po qhs Qutayb s S. - Cristaydah 09/30 , M.D. Benicar 06/16 Hx Tablets 40mg 30tab 1 po qd [facility] , M.[facility]. Crestor 06/16 Hx Tablets 5mg 30tab 1 po qd [facility] , M.D. Lovaza 03/27 Hx Capsules 1gm 60cap 1 po bid [facility]b s [facility]11 , M.D. Gemfibrozil 03/20 Hx Tablets 600mg 120ta 1 po bid [facility] bs [facility] 03[facility]23 , M.D. OTC Fish Oil 02/06 Hx 1Gram one po bid Qut[facility]b [facility]11 , M.D. Lovaza 01/22 Hx Capsules 1gm 180ca 1 po bid [facility] ps [facility] 02[facility]06 , M.D. Niaspan 12/30 Hx Tablets ER 500mg 30tab 1tab pm Qutayb s S. - Maghaydah 01/19 , M.D. /2008 Atacand 12/12 Hx Tablets 16mg 90tab 1 po qd Qutaybeh s S. - Maghaydah 12/12 , M.D. /2008 Atacand 12/12 Hx Tablets 32 30tab 1 qam Qutayb s S. - Maghaydah 06/16 , M.D. /2008 Zetia 12/12 Hx Tablets 10mg 30tab 1 po qd Qutaybeh s S. - Maghaydah 01/19 , M.D. /2008 K-Dur 11/05 Hx Tablets ER 20Meq 90tab 1 po qd Qutaybeh s S. - Maghaydah 11/05 , M.D. /2012 Zocor 08/13 Hx Tablets 20mg 90tab One QHS Qutayb s S. - Maghaydah 11/26 , M.D. /2008 Zestril 1025 Hx Tablets 20mg 90tab 1 PO bid Qutaybeh s S. - Maghaydah 02/23 , M.D. /2010 Calan SR 1025 Hx Tablets ER 240mg 30tab 1 PO qd Qutaybeh s S. - Maghaydah 12/12 , M.D. /2008 Triamterene/Hyd 1025 Hx Capsules 37.5-25 90cap 1 PO qd Qutaybeh rochlorothiazid s S. e - Maghaydah 03/27 , M.D. /2016 Klonopin 10/25 Hx Tablets 1mg 1 PO qd Qutaybeh S. - Maghaydah 01/02 , M.D. /2011 Aurelia 10/25 Hx Tablets 90tab 1 PO qd Qutaybeh s S. - Maghaydah 11/11 , M.D. /2009 Singulair 10/25 Hx Tablets 10mg 90tab 1 PO qd Qutaybeh s S. - Maghaydah 11/11 , M.D. /2009 Nasonex 10/25 Hx Suspension 50mcg/Act 3unit 2 Squirts Qutaybeh s Intranasal S. - qd Maghaydjamel 01/02 , M.Kirstin /2011 Mucinex 08/02 Hx Tablets ER 600mg 90tab 1 PO bid Qutayb /2006 12HR s S. - Erin 06/16 , M.Kirstin /2008 Benicar 00/00 Hx Tablets 20mg 90tab 1 po qd Unknown /0000 s - 06/16 Verapamil HCL 00/00 Hx Tablets ER 240mg 90tab 1 po qd Unknown CR / s - 06/03 Fish Oil 00/ Hx Capsules 1200mg 2 po qd Unknown / - 08/10 Klonopin / Hx Tablets 0.5mg tid Unknown / - 11/05 Benadryl 00/ Hx Capsules 25mg 30cap 1 po at hs Unknown / s prn - 08/10 Zetia / Hx Tablets 10mg 90tab 1 po qd - pt / s will be - dc'ing after 05/19 rx runs out /2013 after 02/25/14 Loratadine 00/ Hx Tablets 10mg 30tab 1 po qd prn Unknown / s - 07/28 Calcium 00/00 Hx 100 one tablet Unknown /0000 once a week - 07/08 B Complex 00/ Hx Capsules 1 po once a Unknown /0000 week - (random) 06/03 Magnesium 00/ Hx Tablets 200mg one po once Unknown Citrate /0000 a week - 02/05 Clonazepam 00/ Hx Tablets 0.5mg 1/2 tab in Unknown /0000 Am and 1 tab - at night 12/27 Omeprazole / Hx Capsules DR 20mg 90cap 1 po qd Unknown /0000 s - 11/22 Verapamil HCL 00/00 Hx Tablets ER 240mg 30tab 1 po qd Unknown SA /0000 s - 07/08 Klor-Con 00/00 Hx Tablets ER 30tab 1 po qd Unknown / s - 01/14 Guaifenesin 00/ Hx Tablets 400mg bid Unknown / - 07/28 Losartan 00 Hx Tablets 50mg 180ta 1 by mouth Qutaybchong bs once a day S. - Erin 12/26 Lyubov /2017 Flomax Hx Capsules 0.4mg 90cap 1 by mouth Unknown /0000 s every day - 06/03 Jublia Hx Solution 10% 4ml apply 1 drop Unknown /0000 to the nail, - spread it 11/22 around nail, every day for 48 weeks. use 2 drops on the big toe Zestril Hx 20mg 2 tabs daily Unknown /0000 - 11/09 Azelastine HCL Hx Solution 0.15% use one Unknown (Nasal) spray in - each nostril 01/08 twice daily prn Pyridium Hx Tablets 100mg one by mouth Unknown /0000 three times - prn 11/22 Oxybutynin Hx Tablets 5mg 1 by mouth Unknown Chloride 0000 tid (during - tx) ( on 12/02 Hold) Rapaflo Hx Capsules 8mg 1 by mouth Unknown /0000 every day - 08/21 Ibuprofen Hx 200mg 1 po q 8h Unknown /0000 prn - 01/15 Lupron 00 Hx Unknown Injection /0000 - 11/22 Lupron 00/00 Hx every 6 Unknown Injection /0000 months - 11/09 Co Q 10 Hx Capsules 100mg 1 by mouth Unknown /0000 every day - 09/21 Miralax Hx Powder 3350NF 17 gm every Unknown /0000 day mixed w/ - 8 oz 12/09 water/juice as needed Medications Administered in Office Medication Date Status Form Strength Qnty SIG Indications Ordering Provider Celestone 3 mg Administered Injection Ian and 3mg 017 MD Wili Technetium TC Administered Injection Stephen Boss 99M 016 DO Ryan Tetrofosmin, FACC Per Unit Dose Up To 40 Millicuries Technetium TC Administered Injection Basilio Fulton 99M 014 Lyubov Torres Tetrofosmin, Per Unit Dose Up To 40 Millicuries Technetium TC Administered Injection Deisy Molina, 99M 014 PA Tetrofosmin, Per Unit Dose Up To 40 Millicuries Vital Signs Date Vital Result Comment 02/01/2018 Height 64 inches 5'4" Weight 194.00 lb Heart Rate 60 /min BP Systolic Sitting 134 mmHg lue reg cuff BP Diastolic Sitting 70 mmHg lue reg cuff BP Systolic Standing 134 mmHg lue reg cuff BP Diastolic Standing 70 mmHg lue reg cuff Respiratory Rate 16 /min BMI (Body Mass Index) 33.3 kg/m2 Ejection Fraction 65% 08/14/2016 echo 01/16/2018 Height 64 inches 5'4" Weight 198.00 lb with shoes Heart Rate 56 /min BP Systolic 140 mmHg Home unit HR 55 BP Diastolic 84 mmHg Home unit HR 55 BP Systolic Sitting 134 mmHg Lue lrg cuff BP Diastolic Sitting 92 mmHg Lue lrg cuff Respiratory Rate 16 /min BMI (Body Mass Index) 34.0 kg/m2 Ejection Fraction 65% 08/14/2016-echo 01/04/2018 Height 64 inches 5'4" Weight 199.00 lb No shoes Heart Rate 62 /min BP Systolic Sitting 125 mmHg Lue lrg cuff BP Diastolic Sitting 64 mmHg Lue lrg cuff Respiratory Rate 17 /min BMI (Body Mass Index) 34.2 kg/m2 Ejection Fraction 60-65% 08/14/2016-echo 12/26/2017 Height 54 inches 4'6" Weight 199.31 lb No shoes Heart Rate 82 /min BP Systolic Sitting 130 mmHg rue reg cuff BP Diastolic Sitting 80 mmHg rue reg cuff BP Systolic Standing 150 mmHg rue reg cuf BP Diastolic Standing 70 mmHg rue reg cuf Respiratory Rate 17 /min BMI (Body Mass Index) 48.1 kg/m2 Ejection Fraction 65% 08/14/2016-Echo 07/28/2017 Heart Rate 78 /min Respiratory Rate 16 /min Body Temperature 96.8 F 05/02/2017 Height 65 inches 5'5" Weight 193.25 lb with shoes Heart Rate 66 /min BP Systolic Sitting 136 mmHg LA reg cuff BP Diastolic Sitting 72 mmHg LA reg cuff BMI (Body Mass Index) 32.2 kg/m2 Ejection Fraction 60% - 65% Palomo 08/24/16 02/10/2017 Height 65 inches 5'5" Weight 194.00 lb BP Systolic 118 mmHg BP Diastolic 72 mmHg Respiratory Rate 16 /min Body Temperature 96.5 F Pain Level 2 BMI (Body Mass Index) 32.3 kg/m2 01/09/2017 Height 65 inches 5'5" Weight 191.75 lb with shoes Heart Rate 66 /min BP Systolic Sitting 124 mmHg LA lrg cuff BP Diastolic Sitting 72 mmHg LA lrg cuff BMI (Body Mass Index) 31.9 kg/m2 Ejection Fraction 60%-65% Palomo 08/24/16 12/27/2016 Height 65 inches 5'5" Weight 196.00 lb Heart Rate 78 /min BP Systolic 120 mmHg BP Diastolic 64 mmHg Respiratory Rate 14 /min Body Temperature 96.4 F Pain Level 1 BMI (Body Mass Index) 32.6 kg/m2 12/06/2016 Height 65 inches 5'5" Weight 196.00 lb w/ shoes Heart Rate 66 /min reg BP Systolic Sitting 116 mmHg Rue, reg cuff BP Diastolic Sitting 80 mmHg Rue, reg cuff BP Systolic Standing 120 mmHg Rue BP Diastolic Standing 80 mmHg Rue Respiratory Rate 16 /min BMI (Body Mass Index) 32.6 kg/m2 Ejection Fraction > 65% as of 08/14/16 echo 11/25/2016 Height 65 inches 5'5" Weight 195.00 lb Heart Rate 64 /min Respiratory Rate 16 /min Pain Level 0 BMI (Body Mass Index) 32.4 kg/m2 11/18/2016 Height 65 inches 5'5" Weight 195.00 lb Heart Rate 60 /min BP Systolic Sitting 122 mmHg Rue large cuff BP Diastolic Sitting 74 mmHg Rue large cuff BP Systolic Standing 116 mmHg BP Diastolic Standing 72 mmHg Respiratory Rate 16 /min BMI (Body Mass Index) 32.4 kg/m2 Ejection Fraction 65% 08/14/16 11/11/2016 Height 65 inches 5'5" Weight 195.00 lb Heart Rate 60 /min Respiratory Rate 16 /min Pain Level 4 BMI (Body Mass Index) 32.4 kg/m2 10/11/2016 Height 64 inches 5'4" Weight 200.00 lb with shoes Heart Rate 66 /min BP Systolic Sitting 146 mmHg Ra lrg cuff BP Diastolic Sitting 74 mmHg Ra lrg cuff BMI (Body Mass Index) 34.3 kg/m2 Ejection Fraction >65% echo 08/14/16 09/22/2016 Height 64 inches 5'4" Weight 201.00 lb with boots Heart Rate 74 /min BP Systolic 162 mmHg LA lrg cuff BP Diastolic 96 mmHg LA lrg cuff BMI (Body Mass Index) 34.5 kg/m2 Ejection Fraction 60% - 65% Palomo 08/24/16 08/22/2016 Height 64 inches 5'4" Weight 197.00 lb Heart Rate 64 /min BP Systolic Sitting 148 mmHg LA, reg BP Diastolic Sitting 84 mmHg LA, reg BMI (Body Mass Index) 33.8 kg/m2 Ejection Fraction 65% echo 10/14/15 08/11/2016 Height 64 inches 5'4" Weight 196.00 lb w/shoes Heart Rate 70 /min BP Systolic Sitting 162 mmHg LA reg cuff BP Diastolic Sitting 90 mmHg LA reg cuff BMI (Body Mass Index) 33.6 kg/m2 Ejection Fraction 60-65% Echo 11/30/15 01/05/2016 Height 64 inches 5'4" Weight 196.25 lb with shoes Heart Rate 76 /min BP Systolic Sitting 132 mmHg LA, regular cuff BP Diastolic Sitting 82 mmHg LA, regular cuff BMI (Body Mass Index) 33.7 kg/m2 Ejection Fraction 60-65% echo 11/30/15 12/07/2015 Heart Rate 70 /min BP Systolic 142 mmHg Man r arm, auto 176/94 BP Diastolic 86 mmHg Man r arm, auto 176/94 BP Systolic Sitting 136 mmHg Man L arm, auto 167/92 BP Diastolic Sitting 80 mmHg Man L arm, auto 167/92 Respiratory Rate 18 /min 12/03/2015 Height 65 inches 5'5" Heart Rate 62 /min BP Systolic Sitting 124 mmHg LA lrg cuff BP Diastolic Sitting 86 mmHg LA lrg cuff BP Systolic Standing 136 mmHg LA lrg cuff BP Diastolic Standing 84 mmHg LA lrg cuff Respiratory Rate 14 /min Ejection Fraction 60-65% 11/30/15 11/23/2015 Height 65 inches 5'5" Weight 196.00 lb without shoes Heart Rate 78 /min BP Systolic Sitting 140 mmHg Ra reg cuff BP Diastolic Sitting 78 mmHg Ra reg cuff Respiratory Rate 17 /min BMI (Body Mass Index) 32.6 kg/m2 Ejection Fraction 60-65% date 10/15/14 ECHO 06/04/2015 Height 65 inches 5'5" Weight 184.75 lb Heart Rate 58 /min BP Systolic Sitting 128 mmHg Ra, reg BP Diastolic Sitting 82 mmHg Ra, reg BMI (Body Mass Index) 30.7 kg/m2 Ejection Fraction 60%-65% 10/15/14 10/28/2014 Height 65 inches 5'5" Weight 194.25 lb w/shoes Heart Rate 66 /min BP Systolic Sitting 112 mmHg Ra reg cuff BP Diastolic Sitting 76 mmHg Ra reg cuff Respiratory Rate 12 /min BMI (Body Mass Index) 32.3 kg/m2 09/16/2014 Height 65 inches 5'5" Weight 193.75 lb Heart Rate 58 /min BP Systolic Sitting 164 mmHg BP Diastolic Sitting 88 mmHg BMI (Body Mass Index) 32.2 kg/m2 08/11/2014 Height 65 inches 5'5" Weight 193.38 lb without shoes Heart Rate 70 /min BP Systolic 118 mmHg L arm , reg cuff BP Diastolic 70 mmHg L arm , reg cuff BP Systolic Sitting 122 mmHg BP Diastolic Sitting 70 mmHg Respiratory Rate 18 /min BMI (Body Mass Index) 32.2 kg/m2 08/04/2014 Height 65 inches 5'5" Weight 194.00 lb with shoes Heart Rate 72 /min regular BP Systolic Sitting 118 mmHg right arm reg cuff BP Diastolic Sitting 72 mmHg right arm reg cuff BP Systolic Standing 120 mmHg right arm reg cuff BP Diastolic Standing 78 mmHg right arm reg cuff Respiratory Rate 18 /min BMI (Body Mass Index) 32.3 kg/m2 05/19/2014 Weight 196.00 lb Heart Rate 70 /min BP Systolic Sitting 140 mmHg BP Diastolic Sitting 90 mmHg 02/25/2014 Heart Rate 68 /min BP Systolic Sitting 130 mmHg BP Diastolic Sitting 72 mmHg 02/05/2014 Height 64 inches 5'4" Weight 195.00 lb Heart Rate 72 /min BP Systolic Sitting 114 mmHg BP Diastolic Sitting 66 mmHg BMI (Body Mass Index) 33.5 kg/m2 07/08/2013 Height 64 inches 5'4" Weight 192.00 lb Heart Rate 64 /min BP Systolic Sitting 138 mmHg BP Diastolic Sitting 82 mmHg Respiratory Rate 16 /min BMI (Body Mass Index) 33.0 kg/m2 11/05/2012 Height 64 inches 5'4" Weight 194.25 lb Heart Rate 72 /min Regular BP Systolic Sitting 116 mmHg BP Diastolic Sitting 80 mmHg BMI (Body Mass Index) 33.3 kg/m2 01/03/2012 Height 64 inches 5'4" Weight 190.00 lb Heart Rate 59 /min BP Systolic Standing 128 mmHg BP Diastolic Standing 80 mmHg BMI (Body Mass Index) 32.6 kg/m2 02/23/2011 Height 64 inches 5'4" Weight 177.00 lb Heart Rate 64 /min BP Systolic Sitting 150 mmHg L BP Diastolic Sitting 82 mmHg L BMI (Body Mass Index) 30.4 kg/m2 07/14/2010 Height 64 inches 5'4" Weight 181.00 lb Heart Rate 60 /min BP Systolic Sitting 140 mmHg L BP Diastolic Sitting 88 mmHg L BMI (Body Mass Index) 31.1 kg/m2 11/11/2009 Height 64 inches 5'4" Weight 184.00 lb Heart Rate 62 /min BP Systolic Sitting 130 mmHg BP Diastolic Sitting 70 mmHg BMI (Body Mass Index) 31.6 kg/m2 06/16/2009 Weight 180.00 lb Heart Rate 61 /min BP Systolic Sitting 150 mmHg BP Diastolic Sitting 80 mmHg Respiratory Rate 16 /min 12/12/2008 Height 64 inches 5'4" Weight 190.00 lb Heart Rate 53 /min BP Systolic Sitting 150 mmHg L BP Diastolic Sitting 84 mmHg L BMI (Body Mass Index) 32.6 kg/m2 11/15/2007 Height 64 inches 5'4" Weight 186.00 lb Heart Rate 60 /min BP Systolic Sitting 126 mmHg BP Diastolic Sitting 82 mmHg Respiratory Rate 14 /min BMI (Body Mass Index) 31.9 kg/m2 08/13/2007 Height 64 inches 5'4" Heart Rate 60 /min BP Systolic Sitting 124 mmHg BP Diastolic Sitting 70 mmHg 08/02/2007 Height 64 inches 5'4" Weight 190.00 lb Heart Rate 70 /min BP Systolic Sitting 130 mmHg BP Diastolic Sitting 80 mmHg Respiratory Rate 16 /min O2 % BldC Oximetry 95 % BMI (Body Mass Index) 32.6 kg/m2 Results Test Date Test Result H/L Range Note Lipid Profile (Trig/Chol/HDL) 12/12/2017 Triglycerides 231 mg/dL 1 Cholesterol 126 mg/dL 2 HDL Cholesterol 43.4 mg/dL 3 LDL Cholesterol 36 mg/dL 4 Comp Metabolic Panel 12/12/2017 Sodium 140 mmol/L 133-145 Potassium 4.1 mmol/L 3.5-5.0 Chloride 105 mmol/L 101-111 Co2 Carbon Dioxide 32 mmol/L 22-32 Anion Gap 3 mmol/L 2-11 Glucose 97 mg/dL 70-100 Blood Urea Nitrogen 14 mg/dL 6-24 Creatinine 0.88 mg/dL 0.67-1.17 BUN/Creatinine Ratio 15.9 8-20 Calcium 9.2 mg/dL 8.6-10.3 Total Protein 6.2 g/dL Low 6.4-8.9 Albumin 4.0 g/dL 3.2-5.2 Globulin 2.2 g/dL 2-4 Albumin/Globulin Ratio 1.8 1-3 Total Bilirubin 0.50 mg/dL 0.2-1.0 Alkaline Phosphatase 60 U/L 34-104 Alt 14 U/L 7-52 Ast 15 U/L 13-39 Egfr Non- 84.7 >60 Egfr 108.9 >60 5 Lipid Panel - [facility] 12/12/2017 Creatine Kinase(CK) 115 U/L 10-223 6 Lipid Panel - [facility] 03/21/2017 Creatine Kinase(CK) 105 U/L 10-223 7 Comp Metabolic Panel 03/21/2017 Sodium 138 mmol/L 133-145 Potassium 4.1 mmol/L 3.5-5.0 Chloride 104 mmol/L 101-111 Co2 Carbon Dioxide 30 mmol/L 22-32 Anion Gap 4 mmol/L 2-11 Glucose 98 mg/dL 70-100 Blood Urea Nitrogen 14 mg/dL 6-24 Creatinine 0.84 mg/dL 0.67-1.17 BUN/Creatinine Ratio 16.7 8-20 Calcium 9.1 mg/dL 8.6-10.3 Total Protein 5.8 g/dL Low 6.4-8.9 Albumin 3.8 g/dL 3.2-5.2 Globulin 2.0 g/dL 2-4 Albumin/Globulin Ratio 1.9 1-3 Total Bilirubin 0.50 mg/dL 0.2-1.0 Alkaline Phosphatase 63 U/L 34-104 Alt 15 U/L 7-52 Ast 17 U/L 13-39 Egfr Non- 89.6 >60 Egfr 115.2 >60 8 Lipid Profile (Trig/Chol/HDL) 03/21/2017 Triglycerides 143 mg/dL 9 Cholesterol 104 mg/dL 10 HDL Cholesterol 45.4 mg/dL 11 LDL Cholesterol 30 mg/dL 12 Lipid Panel - [facility] 08/06/2016 Creatine Kinase(CK) 99 U/L 10-223 13 Comp Metabolic Panel 08/06/2016 Sodium 141 mmol/L 133-145 Potassium 3.8 mmol/L 3.5-5.0 Chloride 104 mmol/L 101-111 Co2 Carbon Dioxide 31 mmol/L 22-32 Anion Gap 6 mmol/L 2-11 Glucose 98 mg/dL 70-100 Blood Urea Nitrogen 10 mg/dL 6-24 Creatinine 0.77 mg/dL 0.67-1.17 BUN/Creatinine Ratio 13.0 8-20 Calcium 9.5 mg/dL 8.6-10.3 Total Protein 6.7 g/dL 6.4-8.9 Albumin 4.3 g/dL 3.2-5.2 Globulin 2.4 g/dL 2-4 Albumin/Globulin Ratio 1.8 1-3 Total Bilirubin 0.60 mg/dL 0.2-1.0 Alkaline Phosphatase 78 U/L 34-104 Egfr Non- 99.3 >60 Egfr 127.7 >60 14 Laboratory test finding 08/06/2016 Alt 14 U/L 7-52 Ast 17 U/L 13-39 Lipid Profile (Trig/Chol/HDL) 08/06/2016 Triglycerides 192 mg/dL 15 Cholesterol 137 mg/dL 16 HDL Cholesterol 52.3 mg/dL 17 LDL Cholesterol 46 mg/dL 18 Lipid Profile (Trig/Chol/HDL) 11/27/2015 Triglycerides 172 mg/dL 19 Cholesterol 282 mg/dL 20 HDL Cholesterol 51.7 mg/dL 21 LDL Cholesterol 196 mg/dL 22 Comp Metabolic Panel 11/27/2015 Sodium 139 mmol/L 133-145 Potassium 4.2 mmol/L 3.5-5.0 Chloride 102 mmol/L 101-111 Co2 Carbon Dioxide 31 mmol/L 22-32 Anion Gap 6 mmol/L 2-11 Glucose 96 mg/dL 70-100 Blood Urea Nitrogen 9 mg/dL 6-24 Creatinine 0.92 mg/dL 0.67-1.17 BUN/Creatinine Ratio 9.8 8-20 Calcium 9.9 mg/dL 8.6-10.3 Total Protein 6.6 g/dL 6.4-8.9 Albumin 4.1 g/dL 3.2-5.2 Globulin 2.5 g/dL 2-4 Albumin/Globulin Ratio 1.6 1-3 Total Bilirubin 0.60 mg/dL 0.2-1.0 Alkaline Phosphatase 77 U/L 34-104 Alt 16 U/L 7-52 Ast 18 U/L 13-39 Egfr Non- 80.9 >60 Egfr 104.0 >60 23 Lip[address] Panel - [facility] 11/27/2015 Creatine Kinase(CK) 119 U/L 10-223 24 Comp Metabolic Panel 06/05/2015 Sodium 132 mmol/L Low 133-145 Potassium 3.6 mmol/L 3.5-5.0 Chloride 98 mmol/L Low 101-111 Co2 Carbon Dioxide 29 mmol/L 22-32 Anion Gap 5 mmol/L 2-11 Glucose 98 mg/dL 70-100 Blood Urea Nitrogen 15 mg/dL 6-24 Creatinine 0.80 mg/dL 0.67-1.17 BUN/Creatinine Ratio 18.8 8-20 Calcium 9.0 mg/dL 8.6-10.3 Total Protein 5.7 g/dL Low 6.4-8.9 Albumin 3.9 g/dL 3.2-5.2 Globulin 1.8 g/dL Low 2-4 Albumin/Globulin Ratio 2.2 1-3 Total Bilirubin 0.80 mg/dL 0.2-1.0 Alkaline Phosphatase 40 U/L 34-104 Alt 16 U/L 7-52 Ast 16 U/L 13-39 Egfr Non- 95.3 >60 Egfr 122.6 >60 25 Laboratory test finding 06/05/2015 Magnesium 2.2 mg/dL 1.9-2.7 Laboratory test finding 10/29/2014 Troponin I 0.00 ng/mL <0.03 26, 27 Basic Metabolic Panel 07/11/2012 Sodium 140 mmol/L 133-145 Potassium 4.0 mmol/L 3.5-5.0 Chloride 103 mmol/L 101-111 Co2 Carbon Dioxide 28.0 mmol/L 22-32 Anion Gap 9.0 mmol/L 2-11 Glucose 84 mg/dL 70-100 Blood Urea Nitrogen 12 mg/dL 6-24 Creatinine 1.00 mg/dL 0.50-1.40 BUN/Creatinine Ratio 12.0 8-20 Calcium 9.2 mg/dL 8.1-9.9 Egfr Non- 74.3 >60 Egfr 95.6 >60 28 Basic Metabolic Panel 01/05/2012 Sodium 137 mmol/L 135-145 Potassium 4.1 mmol/L 3.5-5.0 Chloride 101 mmol/L 101-111 Co2 (Carbon Dioxide) 33.0 mmol/L High 22-32 Anion Gap 3.0 mmol/L 2-11 29 Glucose 111 mg/dL High 70-100 BUN 12 mg/dL 6-24 Creatinine 0.8 mg/dL 0.50-1.40 One Over Creatinine 1.25 BUN/Creatinine Ratio 15.0 8-20 Calcium 9.2 mg/dL 8.1-9.9 eGFR Non- 96.1 > 60 eGFR 123.6 > 60 30 Lipid Profile (Trig/Chol/HDL) 02/16/2011 Triglyceride 223 mg/dL High 40- 200 Cholesterol 282 mg/dL High Less Than 200 31 High Density Lipoprotein 53 mg/dL 40-60 32 Cholesterol/HDL Ratio 5.32 AVERAGE High 1-4.97 Low Density Lipoprotein 184 mg/dL High Less Than 100 33 Laboratory test finding 02/16/2011 CPK (Creatine Kinase) 213 U/L High 0- 200 Ast (Sgot) 21 U/L 12-42 Alt (SGPT) 20 U/L 17-63 Lipid Profile (Trig/Chol/HDL) 12/07/2010 Triglyceride 188 mg/dL 40-200 Cholesterol 262 mg/dL High Less Than 200 34 High Density Lipoprotein 45 mg/dL 40-60 35 Cholesterol/HDL Ratio 5.82 AVERAGE High 1-4.97 Low Density Lipoprotein 179 mg/dL High Less Than 100 36 Laboratory test finding 12/07/2010 Ast (Sgot) 20 U/L 12-42 Alt (SGPT) 18 U/L 17-63 CPK (Creatine Kinase) 162 U/L 0-200 Liver Function Panel 07/07/2010 Total Protein 5.8 GM/DL Low 6.2-8.1 Albumin 4.0 GM/DL 3.2-5.2 Globulin 1.8 GM/DL Low 2-4 Albumin/Globulin Ratio 2.2 1-3 Bilirubin Total 1.3 mg/dL 0.4-1.5 37 Bilirubin Direct 0.2 mg/dL 0.1-0.5 Indirect Bilirubin 1.1 mg/dL High 0.3-1.0 38 Alkaline Phosphatase 55 U/L 39-117 Alt (SGPT) 18 U/L 17-63 Ast (Sgot) 22 U/L 12-42 Lipid Profile (Trig/Chol/HDL) 07/07/2010 Triglyceride 115 mg/dL 40-200 Cholesterol 216 mg/dL High Less Than 200 39 High Density Lipoprotein 49 mg/dL 40-60 40 Cholesterol/HDL Ratio 4.41 AVERAGE 1-4.97 Low Density Lipoprotein 144 mg/dL High Less Than 100 41 Laboratory test finding 07/07/2010 CPK (Creatine Kinase) 209 U/L High 0- 200 Laboratory test finding 06/16/2010 CPK (Creatine Kinase) 149 U/L 0-200 Laboratory test finding 04/05/2010 PSA,Diagnostic 1.62 NG/ML 0-4 42 Lipid Profile 04/05/2010 Triglyceride 194 mg/dL 40-200 (Trig/Chol/HDL) Cholesterol 286 mg/dL High Less Than 200 43 High Density Lipoprotein 42 mg/dL 40-60 44 Cholesterol/HDL Ratio 6.81 AVERAGE High 1-4.97 Low Density Lipoprotein 205 mg/dL High Less Than 100 45 Laboratory test finding 01/11/2010 CPK (Creatine Kinase) 192 U/L 0-200 46 Liver Function Panel 01/11/2010 Total Protein 6.0 GM/DL Low 6.2-8.1 46 Albumin 3.7 GM/DL 3.2-5.2 46 Globulin 2.3 GM/DL 2-4 46 Albumin/Globulin Ratio 1.6 1-3 46 Bilirubin Total 1.1 mg/dL 0.4-1.5 46, 47 Bilirubin Direct 0.4 mg/dL 0.1-0.5 46 Indirect Bilirubin 0.7 mg/dL 0.1-0.75 46 Alkaline Phosphatase 48 U/L 39-117 46 Alt (SGPT) 20 U/L 17-63 46 Ast (Sgot) 30 U/L 12-42 46 Lipid Profile (Trig/Chol/HDL) 01/11/2010 Triglyceride 172 mg/dL 40-200 46 Cholesterol 237 mg/dL High Less Than 200 46, 48 High Density Lipoprotein 40 mg/dL 40-60 46, 49 Cholesterol/HDL Ratio 5.93 AVERAGE High 1-4.97 46 Low Density Lipoprotein 163 mg/dL High Less Than 100 46, 50 Lipid Profile (Trig/Chol/HDL) 11/09/2009 Triglyceride 91 mg/dL 40-200 Cholesterol 195 mg/dL Less Than 200 51 High Density Lipoprotein 44 mg/dL 40-60 52 Cholesterol/HDL Ratio 4.30 AVERAGE 1-4.97 Low Density Lipoprotein 127 mg/dL High Less Than 100 53 Comp Metabolic Panel 11/09/2009 Sodium 138 mmol/L 135-145 Potassium 4.1 mmol/L 3.5-5.0 Chloride 103 mmol/L 101-111 Co2 (Carbon Dioxide) 29.0 mmol/L 22-32 Anion Gap 6.0 mmol/L 2-11 54 Glucose 88 mg/dL 70-100 55 BUN 18 mg/dL 6-24 Creatinine 0.87 mg/dL 0.50-1.40 One Over Creatinine 1.10 BUN/Creatinine Ratio 20.7 High 8-20 Calcium 9.0 mg/dL 8.1-9.9 56 Total Protein 6.5 GM/DL 6.2-8.1 Albumin 3.9 GM/DL 3.2-5.2 Globulin 2.6 GM/DL 2-4 Albumin/Globulin Ratio 1.5 1-3 Bilirubin Total 1.3 mg/dL 0.4-1.5 57 Alkaline Phosphatase 46 U/L 39-117 Alt (SGPT) 22 U/L 17-63 Ast (Sgot) 25 U/L 12-42 eGFR Non- 93.3 > 60 eGFR 112.9 > 60 58 Lipid Panel - [facility] 11/09/2009 CPK (Creatine Kinase) 211 U/L High 0-200 Laboratory test finding 06/11/2009 Glucose 91 mg/dL 70-100 46, 59 BUN 12 mg/dL 6-24 46 CBC With Electronic Diff 06/11/2009 White Blood Count 6.6 CUMM 4.8-10.8 46 Red Cell Count 4.94 CUMM 4.6-6.2 46 Hemoglobin 15.5 g/dL 14.0-18.0 46 Hematocrit 45 % 42-52 46 Mean Corpuscular Volume 91 um3 80-94 46 Mean Corpuscular Hemoglob 32 pg High 27-31 46 Mean Corpuscular HGB Cone 35 g/dL 32-36 46 Redcell Distribution WDTH 13 % 10.5-15 46 Platelet Count 212 CUMM 150-450 46 Mean Platelet Volume 7.7 um3 7.4-10.4 46 Gran % 68.6 % 38-83 46 Lymph % 16.7 % Low 25-47 46 Mononuclear % 12.1 % High 1-9 46 Eosinophil % 2.3 % 0-6 46 Basophil % 0.3 % 0-2 46 Abs Lymphs 1.1 1.0-4.8 46 Abs Mononuclear 0.8 0-0.8 46 Absolute Neutrophil Count 4.6 1.5-7.7 46 Abs Eosinophils 0.2 0-0.6 46 Abs Basophils 0 0-0.2 46, 60 Liver Function Panel 06/11/2009 Total Protein 6.0 GM/DL Low 6.2-8.1 46 Albumin 3.6 GM/DL 3.2-5.2 46 Globulin 2.4 GM/DL 2-4 46 Albumin/Globulin Ratio 1.5 1-3 46 Bilirubin Total 1.1 mg/dL 0.4-1.5 46, 61 Bilirubin Direct 0.2 mg/dL 0.1-0.5 46 Indirect Bilirubin 0.9 mg/dL High 0.1-0.75 46 Alkaline Phosphatase 54 U/L 39-117 46 Alt (SGPT) 18 U/L 17-63 46 Ast (Sgot) 19 U/L 12-42 46 Lipid Profile (Trig/Chol/HDL) 06/11/2009 Triglyceride 155 mg/dL 40-200 46 Cholesterol 255 mg/dL High Less Than 200 46, 62 High Density Lipoprotein 40 mg/dL 40-60 46, 63 Cholesterol/HDL Ratio 6.38 AVERAGE High 1-4.97 46 Low Density Lipoprotein 184 mg/dL High Less Than 100 46, 64 Liver Function Panel 03/19/2009 Total Protein 5.7 GM/DL Low 6.2-8.1 Albumin 3.6 GM/DL 3.2-5.2 Globulin 2.1 GM/DL 2-4 Albumin/Globulin Ratio 1.7 1-3 Bilirubin Total 1.0 mg/dL 0.4-1.5 65 Bilirubin Direct 0.1 mg/dL 0.1-0.5 Indirect Bilirubin 0.9 mg/dL High 0.1-0.75 Alkaline Phosphatase 45 U/L 39-117 Alt (SGPT) 24 U/L 17-63 Ast (Sgot) 24 U/L 12-42 Lipid Profile (Trig/Chol/HDL) 03/19/2009 Triglyceride 117 mg/dL 40-200 Cholesterol 256 mg/dL High Less Than 200 66 High Density Lipoprotein 45 mg/dL 40-60 67 Cholesterol/HDL Ratio 5.69 AVERAGE High 1-4.97 Low Density Lipoprotein 188 mg/dL High Less Than 100 68 Basic Metabolic Panel 12/29/2008 Sodium 140 mmol/L 135-145 Potassium 4.3 mmol/L 3.5-5.0 Chloride 101 mmol/L 101-111 Co2 (Carbon Dioxide) 30.0 mmol/L 22-32 Anion Gap 9.0 mmol/L 2-11 69 Glucose 93 mg/dL 70-100 70 BUN 8 mg/dL 6-24 Creatinine 0.90 mg/dL 0.50-1.40 One Over Creatinine 1.10 BUN/Creatinine Ratio 8.9 8-20 Calcium 9.5 mg/dL 8.1-9.9 71 Laboratory test finding 12/10/2008 CPK (Creatine Kinase) 192 U/L 0-200 Comp Metabolic Panel 11/12/2008 Sodium 139 mmol/L 135-145 Potassium 4.0 mmol/L 3.5-5.0 Chloride 102 mmol/L 101-111 Co2 (Carbon Dioxide) 30.0 mmol/L 22-32 Anion Gap 7.0 mmol/L 2-11 72 Glucose 92 mg/dL 70-100 73 BUN 12 mg/dL 6-24 Creatinine 0.90 mg/dL 0.50-1.40 One Over Creatinine 1.10 BUN/Creatinine Ratio 13.3 8-20 Calcium 9.5 mg/dL 8.1-9.9 74 Total Protein 6.7 GM/DL 6.2-8.1 Albumin 4.0 GM/DL 3.2-5.2 Globulin 2.7 GM/DL 2-4 Albumin/Globulin Ratio 1.5 1-3 Bilirubin Total 1.3 mg/dL 0.4-1.5 Alkaline Phosphatase 63 U/L 39-117 Alt (SGPT) 24 U/L 17-63 Ast (Sgot) 25 U/L 12-42 Lipid Profile (Trig/Chol/HDL) 11/12/2008 Triglyceride 133 mg/dL 40-200 Cholesterol 203 mg/dL High Less Than 200 75 High Density Lipoprotein 52 mg/dL 40-60 76 Cholesterol/HDL Ratio 3.90 AVERAGE 1-4.97 Low Density Lipoprotein 124 mg/dL High Less Than 100 77 Laboratory test finding 11/12/2008 CPK (Creatine Kinase) 333 U/L High 0- 200 PSA,Diagnostic 0.81 NG/ML 0-4 78 Laboratory test finding 10/27/2008 Troponin-I (TnI) 0.05 NG/ML 0-0.06 79 CBC With Electronic Diff Stat 10/26/2008 White Blood Count 5.7 CUMM 4.8- 10.8 Red Cell Count 4.89 CUMM 4.6-6.2 Hemoglobin 15.3 g/dL 14.0-18.0 Hematocrit 44 % 42-52 Mean Corpuscular Volume 89 um3 80-94 Mean Corpuscular Hemoglob 31 pg 27-31 Mean Corpuscular HGB Cone 35 g/dL 32-36 Redcell Distribution WDTH 13 % 10.5-15 Platelet Count 245 CUMM 150-450 Mean Platelet Volume 7.8 um3 7.4-10.4 Gran % 52.0 % 38-83 Lymph % 31.7 % 25-47 Mononuclear % 12.3 % High 1-9 Eosinophil % 3.0 % 0-6 Basophil % 1.0 % 0-2 Abs Lymphs 1.8 1.0-4.8 Abs Mononuclear 0.7 0-0.8 Absolute Neutrophil Count 2.9 1.5-7.7 Abs Eosinophils 0.2 0-0.6 Abs Basophils 0.1 0-0.2 P33S 10/26/2008 Sodium 140 mmol/L 135-145 Potassium 3.5 mmol/L 3.5-5.0 Chloride 102 mmol/L 101-111 Co2 (Carbon Dioxide) 30.0 mmol/L 22-32 Anion Gap 8.0 mmol/L 2-11 80 Glucose 85 mg/dL 70-100 81 BUN 11 mg/dL 6-24 Creatinine 0.80 mg/dL 0.50-1.40 One Over Creatinine 1.20 BUN/Creatinine Ratio 13.8 8-20 Calcium 9.3 mg/dL 8.1-9.9 82 Total Protein 6.4 GM/DL 6.2-8.1 Albumin 3.9 GM/DL 3.2-5.2 Globulin 2.5 GM/DL 2-4 Albumin/Globulin Ratio 1.6 1-3 Bilirubin Total 0.8 mg/dL 0.4-1.5 Alkaline Phosphatase 55 U/L 39-117 Alt (SGPT) 20 U/L 17-63 Ast (Sgot) 24 U/L 12-42 Laboratory test finding 10/26/2008 Troponin-I (TnI) 0 NG/ML 0-0.06 83 1 Desirable: <150 Borderline High: 150-199 High: 200-499 Very High: >500 2 Desirable: <200 Borderline High: 200-239 High: >239 3 Low: <40 Desirable: 40-60 High: >60 4 Desirable: <100 Near Optimal: 100-129 Borderline High: 130-159 High: 160-189 Very High: >189 5 Because ethnic data is not always readily available, this report includes an eGFR for both -Americans and non- Americans. The National Kidney Disease Education Program (NKDEP) does not endorse the use of the MDRD equation for patients that are not between the ages of 18 and 70, are , have extremes of body size, muscle mass, or nutritional status, or are non- or non-. According to the National Kid[employer], irrespective of diagnosis, the stage of the disease is based on the level of kidney function: Stage Description GFR(mL/min/1.73 m(2)) 1 Kidney damage with normal or decreased GFR 90 2 Kidney damage with mild decrease in GFR 60-89 3 Moderate decrease in GFR 30-59 4 Severe decrease in GFR 15-29 5 Kidney failure <15 (or dialysis) 6 fasting 7 FASTING fasting before next ov 8 Because ethnic data is not always readily available, this report includes an eGFR for both -Americans and non- Americans. The National Kidney Disease Education Program (NKDEP) does not endorse the use of the MDRD equation for patients that are not between the ages of 18 and 70, are , have extremes of body size, muscle mass, or nutritional status, or are non- or non-. According to the National Kidney Foundation, irrespective of diagnosis, the stage of the disease is based on the level of kidney function: Stage Description GFR(mL/min/1.73 m(2)) 1 Kidney damage with normal or decreased GFR 90 2 Kidney damage with mild decrease in GFR 60-89 3 Moderate decrease in GFR 30-59 4 Severe decrease in GFR 15-29 5 Kidney failure <15 (or dialysis) 9 Desirable <150 Borderline high 150-199 High 200-499 Very High >500 10 Desirable <200 Borderline high 200-239 High >239 11 Low <40 Desirable: 40-60 High: >60 12 Desirable: <100 mg/dL Near Optimal: 100-129 mg/dL Borderline High: 130-159 mg/dL High: 160-189 mg/dL Very High: >189 mg/dL 13 FASTING fasting 14 Because ethnic data is not always readily available, this report includes an eGFR for both -Americans and non- Americans. The National Kidney Disease Education Program (NKDEP) does not endorse the use of the MDRD equation for patients that are not between the ages of 18 and 70, are , have extremes of body size, muscle mass, or nutritional status, or are non- or non-. According to the National Kidney Foundation, irrespective of diagnosis, the stage of the disease is based on the level of kidney function: Stage Description GFR(mL/min/1.73 m(2)) 1 Kidney damage with normal or decreased GFR 90 2 Kidney damage with mild decrease in GFR 60-89 3 Moderate decrease in GFR 30-59 4 Severe decrease in GFR 15-29 5 Kidney failure <15 (or dialysis) 15 Desirable <150 Borderline high 150-199 High 200-499 Very High >500 16 Desirable <200 Borderline high 200-239 High >239 17 Low <40 Desirable: 40-60 High: >60 18 Desirable: <100 mg/dL Near Optimal: 100-129 mg/dL Borderline High: 130-159 mg/dL High: 160-189 mg/dL Very High: >189 mg/dL 19 Desirable <150 Borderline high 150-199 High 200-499 Very High >500 20 Desirable <200 Borderline high 200-239 High >239 21 Low <40 Desirable: 40-60 High: >60 22 Desirable: <100 mg/dL Near Optimal: 100-129 mg/dL Borderline High: 130-159 mg/dL High: 160-189 mg/dL Very High: >189 mg/dL 23 Because ethnic data is not always readily available, this report includes an eGFR for both -Americans and non- Americans. The National Kidney Disease Education Program (NKDEP) does not endorse the use of the MDRD equation for patients that are not between the ages of 18 and 70, are , have extremes of body size, muscle mass, or nutritional status, or are non- or non-. According to the National Kidney Foundation, irrespective of diagnosis, the stage of the disease is based on the level of kidney function: Stage Description GFR(mL/min/1.73 m(2)) 1 Kidney damage with normal or decreased GFR 90 2 Kidney damage with mild decrease in GFR 60-89 3 Moderate decrease in GFR 30-59 4 Severe decrease in GFR 15-29 5 Kidney failure <15 (or dialysis) 24 Fasting- baseline prior to PCSK9 25 Because ethnic data is not always readily available, this report includes an eGFR for both -Americans and non- Americans. The National Kidney Disease Education Program (NKDEP) does not endorse the use of the MDRD equation for patients that are not between the ages of 18 and 70, are , have extremes of body size, muscle mass, or nutritional status, or are non- or non-. According to the National Kidney Foundation, irrespective of diagnosis, the stage of the disease is based on the level of kidney function: Stage Description GFR(mL/min/1.73 m(2)) 1 Kidney damage with normal or decreased GFR 90 2 Kidney damage with mild decrease in GFR 60-89 3 Moderate decrease in GFR 30-59 4 Severe decrease in GFR 15-29 5 Kidney failure <15 (or dialysis) 26 PLEASE HOLD PATINET 27 Reference Range and Interpretation: TnI (ng/mL) Interpretation Less Than 0.03 ng/mL Not supportive of diagnosis of [place] 0.03 - 0.50 ng/mL Indeterminate: suggest serial studies if clinically indicated. Greater than 0.5 ng/mL Consistent with diagnosis of [place] 28 Because ethnic data is not always readily available, this report includes an eGFR for both -Americans and non- Americans. The National Kidney Disease Education Program (NKDEP) does not endorse the use of the MDRD equation for patients that are not between the ages of 18 and 70, are , have extremes of body size, muscle mass, or nutritional status, or are non- or non-. According to the National Kidney Foundation, irrespective of diagnosis, the stage of the disease is based on the level of kidney function: Stage Description GFR(mL/min/1.73 m(2)) 1 Kidney damage with normal or decreased GFR 90 2 Kidney damage with mild decrease in GFR 60-89 3 Moderate decrease in GFR 30-59 4 Severe decrease in GFR 15-29 5 Kidney failure <15 (or dialysis) 29 Anion gap measurement may be of limited value in the presence of any alkalosis, especially in a combined acid base disorder. . 30 Because ethnic data is not always readily available, this report includes an eGFR for both -Americans and non- Americans. The National Kidney Disease Education Program (NKDEP) does not endorse the use of the MDRD equation for patients that are not between the ages of 18 and 70, are , have extremes of body size, muscle mass, or nutritional status, or are non- or non-. According to the National Kidney Foundation, irrespective of diagnosis, the stage of the disease is based on the level of kidney function: Stage Description GFR(mL/min/1.73 m(2)) 1 Kidney damage with normal or decreased GFR 90 2 Kidney damage with mild decrease in GFR 60-89 3 Moderate decrease in GFR 30-59 4 Severe decrease in GFR 15-29 5 Kidney failure <15 (or dialysis) 31 CHOLESTEROL INTERPRETATION: Desirable: Less than 200 MG/DL Borderline-High Risk: 200-239 MG/DL High-Risk: 240 MG/DL and over 32 HDL INTERPRETATION: Undesirable: High Risk: Less than 40 MG/DL Desirable: Low Risk: Greater than 60 MG/DL 33 LDL INTERPRETATION: Low Risk Optimal Level: LDL Less than 100 MG/DL Near or Above Optimal: LDL 100-129 MG/DL Borderline High Risk: LDL 130-159 MG/DL High Risk: LDL 160-189 MG/DL Very High Risk: LDL Greater than 189 MG/DL 34 CHOLESTEROL INTERPRETATION: Desirable: Less than 200 MG/DL Borderline-High Risk: 200-239 MG/DL High-Risk: 240 MG/DL and over 35 HDL INTERPRETATION: Undesirable: High Risk: Less than 40 MG/DL Desirable: Low Risk: Greater than 60 MG/DL 36 LDL INTERPRETATION: Low Risk Optimal Level: LDL Less than 100 MG/DL Near or Above Optimal: LDL 100-129 MG/DL Borderline High Risk: LDL 130-159 MG/DL High Risk: LDL 160-189 MG/DL Very High Risk: LDL Greater than 189 MG/DL 37 A metabolite of Naproxen, O-desmethylnaproxen, has been shown to interfere with the [facility] method for measuring total bilirubin. Samples from patients who have taken Naproxen have shown spurious elevation in total bilirubin levels. 38 Please note updated reference range, effective 04/29/10 39 CHOLESTEROL INTERPRETATION: Desirable: Less than 200 MG/DL Borderline-High Risk: 200-239 MG/DL High-Risk: 240 MG/DL and over 40 HDL INTERPRETATION: Undesirable: High Risk: Less than 40 MG/DL Desirable: Low Risk: Greater than 60 MG/DL 41 LDL INTERPRETATION: Low Risk Optimal Level: LDL Less than 100 MG/DL Near or Above Optimal: LDL 100-129 MG/DL Borderline High Risk: LDL 130-159 MG/DL High Risk: LDL 160-189 MG/DL Very High Risk: LDL Greater than 189 MG/DL 42 * SERUM LEVELS OF PSA MEASURED USING THE [employer] ACCESS HYBRITECH IMMUNOASSAY SHOULD NOT BE INTERPRETED ABSOLUTE EVIDENCE OF THE PRESENCE OR ABSENCE OF DISEASE. THE PSA VALUE SHOULD BE USED IN CONJUNCTION WITH OTHER PERTINENT CLINICAL DIAGNOSTIC PROCEDURES. 43 CHOLESTEROL INTERPRETATION: Desirable: Less than 200 MG/DL Borderline-High Risk: 200-239 MG/DL High-Risk: 240 MG/DL and over 44 HDL INTERPRETATION: Undesirable: High Risk: Less than 40 MG/DL Desirable: Low Risk: Greater than 60 MG/DL 45 LDL INTERPRETATION: Low Risk Optimal Level: LDL Less than 100 MG/DL Near or Above Optimal: LDL 100-129 MG/DL Borderline High Risk: LDL 130-159 MG/DL High Risk: LDL 160-189 MG/DL Very High Risk: LDL Greater than 189 MG/DL 46 FASTING 47 A metabolite of Naproxen, O-desmethylnaproxen, has been shown to interfere with the [facility] method for measuring total bilirubin. Samples from patients who have taken Naproxen have shown spurious elevation in total bilirubin levels. 48 CHOLESTEROL INTERPRETATION: Desirable: Less than 200 MG/DL Borderline-High Risk: 200-239 MG/DL High-Risk: 240 MG/DL and over 49 HDL INTERPRETATION: Undesirable: High Risk: Less than 40 MG/DL Desirable: Low Risk: Greater than 60 MG/DL 50 LDL INTERPRETATION: Low Risk Optimal Level: LDL Less than 100 MG/DL Near or Above Optimal: LDL 100-129 MG/DL Borderline High Risk: LDL 130-159 MG/DL High Risk: LDL 160-189 MG/DL Very High Risk: LDL Greater than 189 MG/DL 51 CHOLESTEROL INTERPRETATION: Desirable: Less than 200 MG/DL Borderline-High Risk: 200-239 MG/DL High-Risk: 240 MG/DL and over 52 HDL INTERPRETATION: Undesirable: High Risk: Less than 40 MG/DL Desirable: Low Risk: Greater than 60 MG/DL 53 LDL INTERPRETATION: Low Risk Optimal Level: LDL Less than 100 MG/DL Near or Above Optimal: LDL 100-129 MG/DL Borderline High Risk: LDL 130-159 MG/DL High Risk: LDL 160-189 MG/DL Very High Risk: LDL Greater than 189 MG/DL 54 Anion gap measurement may be of limited value in the presence of any alkalosis, especially in a combined acid base disorder. . 55 Note change in reference range as of 05/29/08. The change was based on recommendations from the [place] [employer]. 56 Please note change in reference range effective 08 . 57 A metabolite of Naproxen, O-desmethylnaproxen, has been shown to interfere with the [facility] method for measuring total bilirubin. Samples from patients who have taken Naproxen have shown spurious elevation in total bilirubin levels. 58 Because ethnic data is not always readily available, this report includes an eGFR for both -Americans and non- Americans. The National Kidney Disease Education Program (NKDEP) does not endorse the use of the MDRD equation for patients that are not between the ages of 18 and 70, are , have extremes of body size, muscle mass, or nutritional status, or are non- or non-. According to the National Kidney Foundation, irrespective of diagnosis, the stage of the disease is based on the level of kidney function: Stage Description GFR(mL/min/1.73 m(2)) 1 Kidney damage with normal or decreased GFR 90 2 Kidney damage with mild decrease in GFR 60-89 3 Moderate decrease in GFR 30-59 4 Severe decrease in GFR 15-29 5 Kidney failure <15 (or dialysis) 59 Note change in reference range as of 05/29/08. The change was based on recommendations from the [place] [employer]. 60 Lymphopenia % 61 A metabolite of Naproxen, O-desmethylnaproxen, has been shown to interfere with the [facility] method for measuring total bilirubin. Samples from patients who have taken Naproxen have shown spurious elevation in total bilirubin levels. 62 CHOLESTEROL INTERPRETATION: Desirable: Less than 200 MG/DL Borderline-High Risk: 200-239 MG/DL High-Risk: 240 MG/DL and over 63 HDL INTERPRETATION: Undesirable: High Risk: Less than 40 MG/DL Desirable: Low Risk: Greater than 60 MG/DL 64 LDL INTERPRETATION: Low Risk Optimal Level: LDL Less than 100 MG/DL Near or Above Optimal: LDL 100-129 MG/DL Borderline High Risk: LDL 130-159 MG/DL High Risk: LDL 160-189 MG/DL Very High Risk: LDL Greater than 189 MG/DL 65 A metabolite of Naproxen, O-desmethylnaproxen, has been shown to interfere with the [facility] method for measuring total bilirubin. Samples from patients who have taken Naproxen have shown spurious elevation in total bilirubin levels. 66 CHOLESTEROL INTERPRETATION: Desirable: Less than 200 MG/DL Borderline-High Risk: 200-239 MG/DL High-Risk: 240 MG/DL and over 67 HDL INTERPRETATION: Undesirable: High Risk: Less than 40 MG/DL Desirable: Low Risk: Greater than 60 MG/DL 68 LDL INTERPRETATION: Low Risk Optimal Level: LDL Less than 100 MG/DL Near or Above Optimal: LDL 100-129 MG/DL Borderline High Risk: LDL 130-159 MG/DL High Risk: LDL 160-189 MG/DL Very High Risk: LDL Greater than 189 MG/DL 69 Anion gap measurement may be of limited value in the presence of any alkalosis, especially in a combined acid base disorder. . 70 Note change in reference range as of 05/29/08. The change was based on recommendations from the [place] [employer]. 71 Please note change in reference range effective 08 . 72 Anion gap measurement may be of limited value in the presence of any alkalosis, especially in a combined acid base disorder. . 73 Note change in reference range as of 05/29/08. The change was based on recommendations from the [place] [employer]. 74 Please note change in reference range effective 08 . 75 CHOLESTEROL INTERPRETATION: Desirable: Less than 200 MG/DL Borderline-High Risk: 200-239 MG/DL High-Risk: 240 MG/DL and over 76 HDL INTERPRETATION: Undesirable: High Risk: Less than 40 MG/DL Desirable: Low Risk: Greater than 60 MG/DL 77 LDL INTERPRETATION: Low Risk Optimal Level: LDL Less than 100 MG/DL Near or Above Optimal: LDL 100-129 MG/DL Borderline High Risk: LDL 130-159 MG/DL High Risk: LDL 160-189 MG/DL Very High Risk: LDL Greater than 189 MG/DL 78 * SERUM LEVELS OF PSA MEASURED USING THE [employer] ACCESS HYBRITECH IMMUNOASSAY SHOULD NOT BE INTERPRETED ABSOLUTE EVIDENCE OF THE PRESENCE OR ABSENCE OF DISEASE. THE PSA VALUE SHOULD BE USED IN CONJUNCTION WITH OTHER PERTINENT CLINICAL DIAGNOSTIC PROCEDURES. 79 New Reference Range and Interpretation effective 07/12/02 TnI (ng/ml) INTERPRETATION <0.06 ng/ml NOT SUPPORTIVE OF DIAGNOSIS OF IN 0.06 - 0.50 ng/ml INDETERMINATE: SUGGEST SERIAL STUDIES IF CLINICALLY INDICATED. > 0.5 ng/ml CONSISTENT WITH DIAGNOSIS OF IN . 80 Anion gap measurement may be of limited value in the presence of any alkalosis, especially in a combined acid base disorder. . 81 Note change in reference range as of 05/29/08. The change was based on recommendations from the [place] [employer]. 82 Please note change in reference range effective 08 . 83 New Reference Range and Interpretation effective 07/12/02 TnI (ng/ml) INTERPRETATION <0.06 ng/ml NOT SUPPORTIVE OF DIAGNOSIS OF IN 0.06 - 0.50 ng/ml INDETERMINATE: SUGGEST SERIAL STUDIES IF CLINICALLY INDICATED. > 0.5 ng/ml CONSISTENT WITH DIAGNOSIS OF IN . Procedures Date CPT Code Description Status 12/26/2017 87768 EKG Tracing & Interpretation Completed 11/23/2017 40062 Interrogation Device Eval,Implantable Loop Recorder Completed System 11/23/2017 57989 Interrogation Device Eval,Implantable Loop Recorder Completed System 08/10/2017 48960 Interrogation Device Eval,Implantable Loop Recorder Completed System 07/28/2017 22360 Anoscopy Completed 06/06/2017 63840 Interrogation Device Eval,Implantable Loop Recorder Completed System 05/02/2017 80141 EKG Tracing & Interpretation Completed 03/02/2017 31930 Implantable Cardio System Loop Recorder Sys Remota Data Completed Acquistio 03/02/2017 52683 Interrogation Dev Loop Recorder Incl Physician Completed Analysis,Rev,Repor 01/30/2017 07330 Implantable Cardio System Loop Recorder Sys Remota Data Completed Acquistio 01/30/2017 75588 Interrogation Dev Loop Recorder Incl Physician Completed Analysis,Rev,Repor 12/30/2016 66772 Implantable Cardio System Loop Recorder Sys Remota Data Completed Acquistio 12/30/2016 50771 Interrogation Dev Loop Recorder Incl Physician Completed Analysis,Rev,Repor 12/27/2016 05098 Inject/Drain Joint/Bursa Small Completed 11/28/2016 42009 Implant Cardiac Loop Recorder Completed 11/25/2016 93389 Stress Test Supervsn W/Out I/R Completed 11/25/2016 21604 Treadmill Interp/Report Only Completed 11/11/2016 11643 Short Arm Cast Application Completed 08/26/2016 78445 Mobile Cardiovascular Telemetry Over 24 HR Up To 30 Completed Days 08/24/2016 82698 Color Flow Doppler/Interp & Reprt Completed 08/24/2016 51401 Pulse Wave/Continuous-Interp.RPT Completed 08/24/2016 05424 Echocardiography, Transesophageal, Real Time W/Image 2D Completed W/W/O M-M 08/14/2016 13222 ECHO Transthorasic Realtime 2D W Doppler & Color Completed Flow Hosp 08/11/2016 63510 EKG Tracing & Interpretation Completed 11/30/2015 44436 ECHO Transthoracic, Real-Time 2D With Doppler And Color Completed Flow 11/25/2015 66726 Stress Test Completed 11/25/2015 24276 Myocardial Perfusion Imaging Tomographic (Spect) Completed Multiple Studies 06/04/2015 60308 EKG Tracing & Interpretation Completed 10/15/2014 26650 ECHO Transthoracic, Real-Time 2D With Doppler And Color Completed Flow 08/08/2014 08792 Stress Test Completed 08/08/2014 86481 Myocardial Perfusion Imaging Tomographic (Spect) Completed Multiple Studies 08/08/2014 32626 Myocardial Perfusion Imaging Tomographic (Spect) Completed Multiple Studies 08/04/2014 66554 EKG Tracing & Interpretation Completed 03/10/2014 75424 ECHO Transthoracic, Real-Time 2D With Doppler And Color Completed Flow 02/05/2014 44353 EKG Tracing & Interpretation Completed 07/08/2013 70204 EKG Tracing & Interpretation Completed 11/05/2012 74330 EKG Tracing & Interpretation Completed 01/03/2012 90965 EKG Tracing & Interpretation Completed 02/23/2011 63141 EKG Tracing & Interpretation Completed 07/12/2010 35947 ECHO Transthoracic, Real-Time 2D With Doppler And Color Completed Flow 06/30/2010 55452 ECHO Stress Test Incl Perf Contiuous ekg Monitoring Completed W/Phys Superv 06/16/2009 72837 EKG Tracing & Interpretation Completed 12/30/2008 52644 ECHO Stress Test Incl Perf Contiuous ekg Monitoring Completed W/Phys Superv 12/30/2008 02857 ECHO/Stress Completed 12/30/2008 01001 Stress Test Completed 12/12/2008 79759 EKG Tracing & Interpretation Completed 11/30/2007 79328 Echocardiogram Completed 11/30/2007 80230 Echocardiogram Completed 11/30/2007 67698 Pulse Doppler & Continuous Wave Completed 11/30/2007 76433 Pulse Doppler & Continuous Wave Completed 11/30/2007 84663 Color Doppler Completed 11/30/2007 73925 Color Doppler Completed 11/30/2007 16900 Color Doppler Completed 11/15/2007 62303 EKG Tracing & Interpretation Completed 11/15/2007 03648 EKG Tracing & Interpretation Completed 08/08/2007 39041 Left Heart Catheterization Completed 08/08/2007 13138 Inj Proc LFT Vent/LFT Atrl Angio Completed 08/08/2007 02921 Inj Proc LFT Vent/LFT Atrl Angio Completed 08/08/2007 57168 Coronary Angiography Completed 08/08/2007 03026 S/I/R Inj Proc Vent And Or Atrial Completed 08/08/2007 69327 S/I/R Inj Proc Vent And Or Atrial Completed 08/08/2007 20942 Selective Coronary Angioplasty Completed 08/02/2007 85102 EKG Tracing & Interpretation Completed 08/02/2007 08339 EKG Tracing & Interpretation Completed 12/14/2006 49704 ECHO/Stress Completed 12/14/2006 82558 Stress Test Completed 12/14/2006 43758 Stress Test Completed Encounters Type Date Location Provider CPT E/M Dx Office Visit 02/01/2018 3:30p [facility] Katie Rosas, N.P. 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 23280 I10 E78.5 I35.0 R94.31 Office Visit 12/26/2017 3:00p [facility] Katie Rosas, N.P. 10523 I10 E78.5 I35.0 R94.31 R07.9 Office Visit 05/02/2017 3:20p [facility] Jesus Khan, 84791 I35.0 M.DJoe I10 E78.5 R94.31 Office Visit 02/10/2017 2:15p [facility] [address] M18.12 Of C.M.A. Office Visit 01/09/2017 1:20p [facility] Jesus Boss 73326 Z95.818 Lyubov Khan I35.0 I10 Z86.73 E78.5 Office Visit 12/27/2016 3:45p [facility] [place] [address] M18.12 C.M.A. Office Visit 11/25/2016 7:18a [facility], Otis Lara M.D. 36272 R07.89 Hospitalists E78.5 I10 Office Visit 11/25/2016 2:15p [facility] [place] [address] M19.032 C.M.A. Office Visit 11/18/2016 1:45p [facility] Basilio Torres, 54885 I10 [facility] Lyubov I47.1 I47.2 Office Visit 11/11/2016 2:45p [facility] [place] [address] M19.032 C.M.A. Office Visit 10/11/2016 3:00p [facility] [place] 9[address]27 G45.9 [facility] I10 I35.0 I47.1 I47.2 Office Visit 09/22/2016 11:30a [facility] R[place] 02616 G45.9 I10 E78.5 I35.0 I47.1 Office Visit 08/22/2016 3:20p [facility] Jesus Khan 09006 G45.9 M.D. I10 E78.5 I77.810 Office Visit 08/14/2016 4:21p [facility], Ian Alexander, 12396 G45.9 Hospitalists M.D. I10 E78.5 Office Visit 08/13/2016 1:45p [facility] [address] G45.9 I10 Office Visit 08/13/2016 4:19p [facility], Otis Lara M.D. 77463 G45.9 Hospitalists I10 E78.5 Office Visit 08/11/2016 11:00a [facility] Qutachong S. Erin, 00275 I10 M.D. E78.5 I77.810 I35.0 Office Visit 01/05/2016 2:00p [facility] Jesus S. Erin, 59484 I10 M.D. E78.5 Office Visit 12/07/2015 3:30p [facility] [place] [place] [address] I10 Office Visit 12/03/2015 3:30p [facility] [place] 27117 I10 E78.5 K21.9 I77.810 Office Visit 11/23/2015 3:30p [facility] [place] 37493 I10 E78.5 R07.9 Z86.73 Office Visit 06/04/2015 4:00p [facility] Jesus SJoe Khan, 00443 401.1 M.D. 272.4 447.71 V12.54 Office Visit 10/28/2014 9:30a [facility] R[facility] [place] 76726EMT 401.1 272.4 447.71 Office Visit 09/16/2014 11:00a [facility] Jesus SJoe Khan, 13802 272.4 M.D. 401.1 786.50 447.71 Office Visit 08/11/2014 3:00p [facility] [place] 55967 272.4 401.1 794.31 Office Visit 08/04/2014 3:30p [facility] [place] 35971 786.50 272.4 401.1 Office Visit 05/19/2014 2:30p [facility] [place] 83551 272.4 401.1 794.31 Office Visit 02/25/2014 3:00p [facility] [place] 21719 272.4 785.2 780.79 Office Visit 02/05/2014 3:40p [facility] Qutaybeh S. Maghaydah, 71370 401.1 M.D. 272.4 Office Visit 07/08/2013 10:00a [facility] Qutaybeh S. Maghaydah, 60907 401.1 M.D. 272.4 794.31 Office Visit 11/05/2012 11:00a [facility] Qutaybeh S. Maghaydah, 50147 401.1 M.D. 272.4 794.31 Office Visit 01/03/2012 3:30p [facility] Qutaybeh S. Maghaydah, 84653 401.1 M.D. 272.4 Office Visit 02/23/2011 1:40p [facility] Qutaybeh S. Maghaydah, 21189 401.1 M.D. 272.4 794.31 Office Visit 07/14/2010 8:40a [facility] Qutaybeh S. Maghaydah, 74644 401.1 M.D. 272.4 Office Visit 11/11/2009 9:20a [facility] Qutaybeh S. Maghaydah, 16427 272.4 M.D. 401.1 Office Visit 06/16/2009 3:20p [facility] Qutaybeh S. Maghaydah, 72569 272.4 M.D. 401.0 Office Visit 12/12/2008 4:00p [facility] Qutaybeh S. Maghaydah, 86807 272.4 M.D. 794.31 401.0 Office Visit 11/15/2007 3:20p [facility] Qutaybeh S. Maghaydah, 05131 401.1 M.D. 794.31 272.4 Office Visit 08/13/2007 2:00p [facility], 63086 272.4 M.D. 401.1 786.50 Office Visit 08/02/2007 2:20p [facility], 16733 786.50 M.D. 401.1 272.4 794.31 Office Visit 12/14/2006 10:30a [facility], 62757 786.50 M.D. 401.1 780.4 272.4 Plan of Care Future Appointment(s):02/12/2018 2:40 pm - Pacemaker Schedule at [facility]02/01/2018 - Katie Rosas, N.P.I10 Essential (primary) hypertensionComments:BP high today 150/80Follow up:[facility] 09/2018Recommendations :Continue to check your blood pressure daily and call if SBP consistently greater than 150. Continuemoderate exercise for 30-40 min/dayE78.5 Hyperlipidemia, nqqcaghbzddC29.0 Nonrheumatic aortic (valve) wwhinlpnH16.31 Abnormal electrocardiogram [ECG] [EKG]R07.9 Chest pain, unspecified
--- OUTSIDE RECORDS SUMMARY | 2018-02-09 06:01 | XMS REPORT ---
:1945 External Reference #:[id number] Author Organization [employer] Address [address] [address] Phone [phone] Care Team Providers Name Role Phone Leo Cardona MD Primary Care Physician Unavailable Payers Type Date Identification Numbers Payment Provider Subscriber Medicare Primary Effective: Policy Number: Medicare Chan Barraza 2008 [id number] PayID: [id number] [address] [place] [address] Medigap Part B Policy Number: [id number] [facility] Chan Barraza PayID: [id number] [address] [address] [place] [address] Medigap Part B Expires: 2008 Policy Number: [employer] Chan Barraza [id number] Group Number: [id number] [address] PayID: [id number] [place] [address] Problems Date Description Provider Status Onset: 01/03/2012 [...] 90tab 1 po qd Id # s [id number] S. - [place] 05/19 , M.D. Micardis 10/20 Hx Tablets 80mg 1 po qd Qutayb S. - [facility] 10/21 , M.D. Simvastatin 09/30 Hx Tablets 10mg 90tab 1 po qhs Conrad s Charity Price, 11/11 M.D. Diovan 08/19 Hx Tablets 80mg 1 po qd Qutayb S. - [facility] 08/19 , M.D. Diovan 08/17 Hx Tablets 80mg 90tab 1 po qd Qutayb s S. - [facility] 08/17 , M.D. Diovan 08/17 [facility]x [facility]. Simvastatin 08/07 Hx Tablets 40mg 30tab 1 po qhs Qutayb s S. - [place] 09/30 , M.D. Benicar 06/16 Hx Tablets 40mg 30tab 1 po qd [facility] Crestor 06/16 Hx Tablets 5mg 30tab 1 po qd Qutayb s S. - [facility] 08/07 , M.D. Lovaza 03/27 Hx Capsules 1gm 60cap 1 po bid Qutayb s S. - [facility] 11/11 , M.D. Gemfibrozil 03/20 Hx Tablets 600mg 120ta 1 po bid Qutayb bs S. - [facility] 03/23 , M.D. OTC Fish Oil 02/06 Hx 1Gram one po bid Qutayb S. - [facility] 11/11 , M.D. Lovaza 01/22 Hx Capsules 1gm 180ca 1 po bid Qutayb ps S. - [facility] 02/06 , M.D. Niaspan 12/30 Hx Tablets [...] 40 Millicuries Technetium TC Administered Injection Deisy Molina 99M 014 PA Tetrofosmin, Per Unit Dose Up To 40 Millicuries Vital Signs Date Vital Result Comment 01/16/2018 Height 64 inches 5'4" Weight 198.00 [...] 108.9 >60 5 [address] - [facility] 12/12/2017 Creatine Kinase(CK) 115 U/L 10-223 6 Lipid Panel - [facility] 03/21/2017 Creatine Kinase(CK) 105 U/L 10-223 [...] 30 mg/dL 12 Lip[address] Panel - [facility] 08/06/2016 Creatine Kinase(CK) 99 U/L 10-223 [...] 104.0 >60 23 [address] - [facility] 11/27/2015 Creatine Kinase(CK) 119 U/L 10-223 [...] > 60 58 Lip[address] Panel - [facility] 11/09/2009 CPK (Creatine Kinase) 211 U/L [...] 0.03 ng/mL Not supportive of diagnosis of NE 0.03 - 0.50 ng/mL Indeterminate: suggest serial studies if clinically indicated. Greater than 0.5 ng/mL Consistent with diagnosis of NE 28 Because ethnic data is not always [...] has been shown to interfere with the Jendrassik-[place] method for measuring total bilirubin. Samples from [...] LEVELS OF PSA MEASURED USING THE WENDY [employer] ACCESS HYBRITECH IMMUNOASSAY SHOULD NOT BE INTERPRETED [...] change was based on recommendations from the [place] [employer]. 56 Please note change in [...] change was based on recommendations from the [place] [employer]. 60 Lymphopenia % 61 A metabolite of Naproxen, O-desmethylnaproxen, has been shown to interfere with the Jendrassik-[place] method for measuring total bilirubin. Samples from [...] change was based on recommendations from the [place] [employer]. 71 Please note change in reference range effective 08 . 72 Anion gap measurement may be of limited value in the presence of any alkalosis, especially in a combined acid base disorder. . 73 Note change in reference range as of 05/29/08. The change was based on recommendations from the [place] [employer]. 74 Please note change in [...] SERUM LEVELS OF PSA MEASURED USING THE MediSwipe ACCESS HYBRITECH IMMUNOASSAY SHOULD NOT BE INTERPRETED ABSOLUTE EVIDENCE OF THE PRESENCE OR ABSENCE OF DISEASE. THE PSA VALUE SHOULD BE USED IN CONJUNCTION WITH OTHER PERTINENT CLINICAL DIAGNOSTIC PROCEDURES. 79 New Reference Range and Interpretation effective 07/12/02 TnI (ng/ml) INTERPRETATION <0.06 ng/ml NOT SUPPORTIVE OF DIAGNOSIS OF NE 0.06 - 0.50 ng/ml INDETERMINATE: SUGGEST SERIAL STUDIES IF CLINICALLY INDICATED. > 0.5 ng/ml CONSISTENT WITH DIAGNOSIS OF NE . 80 Anion gap measurement may be of limited value in the presence of any alkalosis, especially in a combined acid base disorder. . 81 Note change in reference range as of 05/29/08. The change was based on recommendations from the [place] [employer]. 82 Please note change in reference range effective 08 . 83 New Reference Range and Interpretation effective 07/12/02 TnI (ng/ml) INTERPRETATION <0.06 ng/ml NOT SUPPORTIVE OF DIAGNOSIS OF NE 0.06 - 0.50 ng/ml INDETERMINATE: SUGGEST SERIAL STUDIES IF CLINICALLY INDICATED. > 0.5 ng/ml CONSISTENT WITH DIAGNOSIS OF NE . Procedures Date CPT Code Description Status 12/26/2017 70384 EKG Tracing & Interpretation Completed 11/23/2017 69023 Interrogation Device Eval,Implantable Loop Recorder Completed System 11/23/2017 81429 Interrogation Device Eval,Implantable Loop Recorder Completed System 08/10/2017 74616 Interrogation Device Eval,Implantable Loop Recorder Completed System 07/28/2017 32908 Anoscopy Completed 06/06/2017 23503 Interrogation Device Eval,Implantable Loop Recorder Completed System 05/02/2017 00563 EKG Tracing & Interpretation Completed 03/02/2017 23381 Implantable Cardio System Loop Recorder Sys Remota Data Completed Acquistio 03/02/2017 66671 Interrogation Dev Loop Recorder Incl Physician Completed Analysis,Rev,Repor 01/30/2017 97806 Implantable Cardio System Loop Recorder Sys Remota Data Completed Acquistio 01/30/2017 27843 Interrogation Dev Loop Recorder Incl Physician Completed Analysis,Rev,Repor 12/30/2016 95748 Implantable Cardio System Loop Recorder Sys Remota Data Completed Acquistio 12/30/2016 00166 Interrogation Dev Loop Recorder Incl Physician Completed Analysis,Rev,Repor 12/27/2016 24800 Inject/Drain Joint/Bursa Small Completed 11/28/2016 30314 Implant Cardiac Loop Recorder Completed 11/25/2016 14019 Stress Test Supervsn W/Out I/R Completed 11/25/2016 12870 Treadmill Interp/Report Only Completed 11/11/2016 52841 Short Arm Cast Application Completed 08/26/2016 22643 Mobile Cardiovascular Telemetry Over 24 HR Up To 30 Completed Days 08/24/2016 97059 Color Flow Doppler/Interp & Reprt Completed 08/24/2016 46035 Pulse Wave/Continuous-Interp.RPT Completed 08/24/2016 83039 Echocardiography, Transesophageal, Real Time W/Image 2D Completed W/W/O M-M 08/14/2016 51250 ECHO Transthorasic Realtime 2D W Doppler & Color Completed Flow Hosp 08/11/2016 43738 EKG Tracing & Interpretation Completed 11/30/2015 98961 ECHO Transthoracic, Real-Time 2D With Doppler And Color Completed Flow 11/25/2015 54130 Stress Test Completed 11/25/2015 53652 Myocardial Perfusion Imaging Tomographic (Spect) Completed Multiple Studies 06/04/2015 36440 EKG Tracing & Interpretation Completed 10/15/2014 46680 ECHO Transthoracic, Real-Time 2D With Doppler And Color Completed Flow 08/08/2014 69241 Stress Test Completed 08/08/2014 62987 Myocardial Perfusion Imaging Tomographic (Spect) Completed Multiple Studies 08/08/2014 62264 Myocardial Perfusion Imaging Tomographic (Spect) Completed Multiple Studies 08/04/2014 60247 EKG Tracing & Interpretation Completed 03/10/2014 76054 ECHO Transthoracic, Real-Time 2D With Doppler And Color Completed Flow 02/05/2014 23963 EKG Tracing & Interpretation Completed 07/08/2013 31650 EKG Tracing & Interpretation Completed 11/05/2012 32201 EKG Tracing & Interpretation Completed 01/03/2012 44362 EKG Tracing & Interpretation Completed 02/23/2011 31089 EKG Tracing & Interpretation Completed 07/12/2010 67702 ECHO Transthoracic, Real-Time 2D With Doppler And Color Completed Flow 06/30/2010 48048 ECHO Stress Test Incl Perf Contiuous ekg Monitoring Completed W/Phys Superv 06/16/2009 35366 EKG Tracing & Interpretation Completed 12/30/2008 59982 ECHO Stress Test Incl Perf Contiuous ekg Monitoring Completed W/Phys Superv 12/30/2008 01347 ECHO/Stress Completed 12/30/2008 04614 Stress Test Completed 12/12/2008 58916 EKG Tracing & Interpretation Completed 11/30/2007 44859 Echocardiogram Completed 11/30/2007 82140 Echocardiogram Completed 11/30/2007 03529 Pulse Doppler & Continuous Wave Completed 11/30/2007 95971 Pulse Doppler & Continuous Wave Completed 11/30/2007 51217 Color Doppler Completed 11/30/2007 13346 Color Doppler Completed 11/30/2007 78140 Color Doppler Completed 11/15/2007 71074 EKG Tracing & Interpretation Completed 11/15/2007 14658 EKG Tracing & Interpretation Completed 08/08/2007 53701 Left Heart Catheterization Completed 08/08/2007 01748 Inj Proc LFT Vent/LFT Atrl Angio Completed 08/08/2007 60540 Inj Proc LFT Vent/LFT Atrl Angio Completed 08/08/2007 75417 Coronary Angiography Completed 08/08/2007 83432 S/I/R Inj Proc Vent And Or Atrial Completed 08/08/2007 79211 S/I/R Inj Proc Vent And Or Atrial Completed 08/08/2007 02760 Selective Coronary Angioplasty Completed 08/02/2007 65014 EKG Tracing & Interpretation Completed 08/02/2007 97681 EKG Tracing & Interpretation Completed 12/14/2006 09558 ECHO/Stress Completed 12/14/2006 59102 Stress Test Completed 12/14/2006 63690 Stress Test Completed Encounters Type Date Location Provider CPT E/M Dx Office Visit 01/04/2018 3:00p [facility] Katie Rosas, N.P. 13775 I10 [facility] E78.5 I35.0 R94.31 Office Visit 12/26/2017 3:00p [facility] Katie Rosas, N.P. 18681 I10 E78.5 I35.0 R94.31 R07.9 Office Visit 05/02/2017 3:20p [facility] Jesus Khan, 33624 I35.0 M.DJoe I10 E78.5 R94.31 Office Visit 02/10/2017 2:15p [facility] [address] M18.12 Of C.M.A. Office Visit 01/09/2017 1:20p [facility] [place]. [address] Z95.818 Lyubov Khan I35.0 I10 Z86.73 E78.5 Office Visit 12/27/2016 3:45p [facility] [place] [address] M18.12 C.M.A. Office Visit 11/25/2016 7:18a [facility], Otis Lara M.D. 66538 R07.89 Hospitalists E78.5 I10 Office Visit 11/25/2016 2:15p [facility] [place] [address] M19.032 C.M.A. 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 55675 G45.9 Hospitalists I10 E78.5 Office Visit 08/11/2016 11:00a [facility] Marcellustaybchong SJoe Khan, 89960 I10 M.DJoe E78.5 I77.810 I35.0 Office Visit 01/05/2016 2:00p [facility] Qutaeh S. Maghaydah, 68641 I10 M.D. E78.5 Office Visit 12/07/2015 3:30p [facility] Of [facility] Nurse Visit 15060 I10 Office Visit 12/03/2015 3:30p [facility] R[place] [address] I10 E78.5 K21.9 I77.810 Office Visit 11/23/2015 3:30p [facility] Of [facility] [place] 31420 I10 E78.5 R07.9 Z86.73 Office Visit 06/04/2015 4:00p [facility] [place], 67442 401.1 M.D. 272.4 447.71 V12.54 Office Visit 10/28/2014 9:30a [facility] RUTH [place] 75234XLE 401.1 272.4 447.71 Office Visit 09/16/2014 11:00a [facility] [place], [address]85[address] 272.4 M.D. 401.1 786.50 447.71 Office Visit 08/11/2014 3:00p [facility] Of [facility] [place] [address] 272.4 401.1 794.31 Office Visit 08/04/2014 3:30p [facility] [place] [address] 786.50 272.4 401.1 Office Visit 05/19/2014 2:30p [facility] [place] 17474 272.4 401.1 794.31 Office Visit 02/25/2014 3:00p [facility] [place] 49114 272.4 785.2 780.79 Office Visit 02/05/2014 3:40p [facility] Qutaybeh S. Maghaydah, 31044 401.1 M.D. 272.4 Office Visit 07/08/2013 10:00a [facility] Qutaybeh S. Maghaydah, 31560 401.1 M.D. 272.4 794.31 Office Visit 11/05/2012 11:00a [facility] Qutaybeh S. haydah, 46602 401.1 M.D. 272.4 794.31 Office Visit 01/03/2012 3:30p [facility] Qutaybeh S. Maghaydah, 16289 401.1 M.D. 272.4 Office Visit 02/23/2011 1:40p [facility] Qutaybeh S. haydah, 17432 401.1 M.D. 272.4 794.31 Office Visit 07/14/2010 8:40a [facility] Qutaybeh S. Maghaydah, 46141 401.1 M.D. 272.4 Office Visit 11/11/2009 9:20a [facility] Qutaybeh S. haydah, 54824 272.4 M.D. 401.1 Office Visit 06/16/2009 3:20p [facility] Qutaybeh S. Cristay[place], 41471 272.4 M.D. 401.0 Office Visit 12/12/2008 4:00p [facility] Qutaybeh S. haydah, 30226 272.4 M.D. 794.31 401.0 Office Visit 11/15/2007 3:20p [facility] Qutaybeh S. Cristaydah, 15902 401.1 M.D. 794.31 272.4 Office Visit 08/13/2007 2:00p [facility] Qutaybeh S. Cristaydah, 48366 272.4 M.D. 401.1 786.50 Office Visit 08/02/2007 2:20p [facility] Qutaybeh S. haydah, 31016 786.50 M.D. 401.1 272.4 794.31 Office Visit 12/14/2006 10:30a [facility] Qutaybeh S. Cristaydah, 86872 786.50 M.D. 401.1 780.4 272.4 Plan of Care Future Appointment(s):02/01/2018 3:30 pm - Katie Rosas N.P. at [facility]02/12/2018 2:40 pm - Pacemaker Schedule at [facility] - Jesus Khan M.D.I10 Essential (primary) hypertensionFollow up:2 weeks Katie BP ov 8 months ov with me
--- NOTE | 2018-02-09 07:08 | UC ---
Allergic Reaction HPI - HPI Summary HPI Summary: Patient presents with hypertension, dry skin and urinary frequency with urgency. He reports he took a rapid flow last night to aid in his partial urinary retention and has had these symptoms since. his chart notes he has an allergy to this medication and so thinks that may be what is happening right now. He denies facial swelling, throat tightness or dysphasia, trouble breathing or swallowing, wheezing, chest pain, chest tightness, headache, change in vision, numbness, tingling, weakness, nausea, vomiting, abdominal pain. He has a history of prostate cancer and follows with Dr. milton who wrote prescription for him yesterday due to his urinary symptoms of retention. - History of Current Complaint Chief Complaint: EDHypertension Stated Complaint: HIGH BP Time Seen by Provider: 02/09/18 06:07 Hx Obtained From: Patient, Family/Arnp - Pain Intensity: 0 - Allergies/Home Medications Allergies/Adverse Reactions: Allergies Allergy/AdvReac Type Severity Reaction Status Date / Time cholestyramine Allergy Unknown Verified 02/09/18 05:52 Reaction Details colesevelam [From WelChol] Allergy Diarrhea Verified 02/09/18 05:47 fenofibrate Allergy Unknown Verified 02/09/18 05:54 Reaction Details gemfibrozil Allergy Unknown Verified 02/09/18 05:54 Reaction Details mirabegron [From Myrbetriq] Allergy Insomnia Verified 02/09/18 05:49 MS Atorvastatin Allergy Unknown Verified 07/06/17 13:17 [From Lipitor] Reaction Details MS Gemfibrozil [Gemfibrozil] Allergy Unknown Verified 07/06/17 13:17 Reaction Details niacin Allergy Unknown Verified 02/09/18 05:50 Reaction Details oxycodone Allergy Rash Verified 02/09/18 05:49 simvastatin [From Zocor] Allergy Rash Verified 02/09/18 05:52 Sqdbooy-Frs-Szn Reductase Allergy Rash Verified 02/09/18 05:50 Inhibitor tamsulosin [From Flomax] Allergy Unknown Verified 02/09/18 05:51 Reaction Details cat dander* Allergy Intermediate Sneezing Uncoded 07/06/17 13:17 PMH/Surg Hx/FS Hx/Imm Hx Previously Healthy: Yes - Surgical History Surgical History: Yes Surgery Procedure, Year, and Place: Deviated septum surgery;. 2011 - Bone spur removal Left foot. VASECTOMY. colonoscopy w/snare polypectomy 2014. Ling event monitor implantation 11/2016 - Family History Known Family History: Positive: Cardiac Disease, Diabetes Family History: Fhx of HLD - Social History Alcohol Use: Daily Alcohol Amount: 2 oz. yulia a day Substance Use Type: None Smoking Status (MU): Never Smoked Tobacco - Immunization History Most Recent Influenza Vaccination: Physical Exam Vital Signs: Initial Vital Signs Temp 98.1 F 02/09/18 05:43 Pulse 75 02/09/18 05:43 Resp 16 02/09/18 05:43 BP 191/95 02/09/18 05:43 Pulse Ox 99 02/09/18 05:43 Discharge - Discharge Plan Referrals: Leo Cardona MD [Primary Care Provider] -
--- NOTE | 2018-02-09 07:12 | ED ---
Allergic Reaction/Systemic - HPI Summary HPI Summary: Patient presents with worse hypertension this morning. Reports he checks his BP [address] Khan due to HTN, cardiac murmur and possible TIA linked w / cardiac condition (pt has an internal cardiac monitoring device). He admits systolic BP is typically in 130's, occasionally in 140's. This morning he was 191 and so came here for evaluation. He denies headache, visual change, chest pain, chest tightness, shortness of breath, jaw pain, numbness, tingling, weakness, fatigue, nausea vomiting or diarrhea. He admits he was anxious when he saw this number and had an episode of flushing which produced a warm sweat on the back of his neck however no heavy diaphoresis. He takes multiple anti- hypertensive medications 2 times a day and has not missed any doses. Upon further investigation, he does say he feels a pounding in his ears and like his heart is racing although his heart rate is in the low 60s upon auscultation and finger heart rate monitoring. Additionally, he is reporting skin itching and dryness over his forearms for the past week. He realized late last night or this morning that this could be a reaction from the topical menthol he's been using on his hands and wrists for arthritis as he has a history of allergies to fragrance resulting in a similar reaction of rash with itching and dryness. He was seen by biochemistry professor in the past for this condition and given clobetasol topical steroid which he has been applying to his forearms over the past 1 week. He denies facial swelling, dysphasia, wheezing, chest tightness, nausea, vomiting, abdominal pain. He also admits to a history of prostate cancer which is caused him to have urinary retention in the past. This symptom has been progressively returning over the past 3 weeks and so he contacted Dr. Rasmussen to notify him. Dr. Rasmussen prescribed him Rapaflo which the patient took at around 1900 last night. He reports he's been urinating quite frequently and freely since without difficulty. His chart does indicate a history of allergy to Flomax and this drug is in the same class - does not recall the reaction he had at that time and nothing listed in his allergy chart re: specifics of rxn. He was wondering if this is causing his head to toe itching however after much conversation, he and his report he's had these symptoms slowly progressing over the course of the week. Furthermore, he has a history of anxiety. He was taking Klonopin 3 times a day however this was switched to buspirone about 1 month ago - no issues since. He took one dose of buspirone this morning and feels this medication has been helpful since the transition. He does admit he is quite anxious about all of his symptoms while here however feels relieved that his topical medication could be causing his skin issues and that the steroid he's been using could be causing his blood pressure to be elevated. - History of Current Complaint Chief Complaint: EDHypertension Time Seen by Provider: 02/09/18 06:07 Hx Obtained From: Patient, Family/Chief Safety Officer - Pain Intensity: 0 - Allergies/Home Medications Allergies/Adverse Reactions: Allergies Allergy/AdvReac Type Severity Reaction Status Date / Time cholestyramine Allergy Unknown Verified 02/09/18 05:52 Reaction Details colesevelam [From WelChol] Allergy Diarrhea Verified 02/09/18 05:47 fenofibrate Allergy Unknown Verified 02/09/18 05:54 Reaction Details gemfibrozil Allergy Unknown Verified 02/09/18 05:54 Reaction Details mirabegron [From Myrbetriq] Allergy Insomnia Verified 02/09/18 05:49 MS Atorvastatin Allergy Unknown Verified 07/06/17 13:17 [From Lipitor] Reaction Details MS Gemfibrozil [Gemfibrozil] Allergy Unknown Verified 07/06/17 13:17 Reaction Details niacin Allergy Unknown Verified 02/09/18 05:50 Reaction Details oxycodone Allergy Rash Verified 02/09/18 05:49 simvastatin [From Zocor] Allergy Rash Verified 02/09/18 05:52 Rejuugk-Kju-Xns Reductase Allergy Rash Verified 02/09/18 05:50 Inhibitor tamsulosin [From Flomax] Allergy Unknown Verified 02/09/18 05:51 Reaction Details cat dander* Allergy Intermediate Sneezing Uncoded 07/06/17 13:17 Home Medications: Home Medications Alirocumab [Praluent] 75 mg SUBCUT .TWICE A MONTH 02/09/18 [History Confirmed ] Calcium Carb/Magnesium Hydrox [Antacid 1000-200 mg Tab Chew] 1 tab PO WEEKLY 01/24 [History Confirmed 02/09/18] Flaxseed Oil [Flaxseed Oil] 1,000 mg PO BID 02/09/18 [History Confirmed 02/09/18 ] Glucosa Cadet 2Kcl/Chondroitin Cadet [Glucosamine & Chondroitin Cap] 1 cap PO .FOUR TIMES A WEEK 02/09/18 [History Confirmed 02/09/18] Lisinopril TAB* [Prinivil TAB*] 40 mg PO QAM 02/09/18 [History Confirmed ] Melatonin (NF) [Meladox] 3 mg PO BEDTIME PRN 02/09/18 [History Confirmed ] Metoprolol Succinate XL TAB* [Toprol XL TAB*] 25 mg PO QPM 02/09/18 [History Confirmed 02/09/18] Minerin Cream* [Minerin*] 1 applic TOPICAL BID 02/09/18 [History Confirmed 02/09] Silodosin(NF) [Rapaflo(NF)] 8 mg PO DAILY 02/09/18 [History Confirmed 02/09/18] Triamterene/HCTZ 37.5-25 MG* [Dyazide CAP*] 1 cap PO QAM 02/09/18 [History Confirmed 02/09/18] Verapamil HCl [Verapamil ER] 120 mg PO QAM 02/09/18 [History Confirmed 02/09/18] Verapamil HCl [Verapamil ER] 240 mg PO QPM 02/09/18 [History Confirmed 02/09/18] amLODIPine TAB* [Norvasc 5 mg TAB*] 5 mg PO QAM 02/09/18 [History Confirmed 01/24] busPIRone TAB* [Buspar TAB*] 5 mg PO .QD-TID PRN 02/09/18 [History Confirmed 01/24] PMH/Surg Hx/FS Hx/Imm Hx Previously Healthy: Yes Endocrine/Hematology History: Denies: Hx Anticoagulant Therapy, Hx Blood Disorders, Hx Diabetes, Hx Thyroid Disease, Hx Anemia, Hx Unexplained Bleeding, Hx Coagulopothy, Autoimmune Disease Cardiovascular History: Reports: Hx Angina, Hx Hypercholesterolemia, Hx Hypertension - on medications, Other Cardiovascular Problems/Disorders - Ling event monitor placed in 2016; Erin Denies: Hx Pacemaker/ICD Respiratory History: Reports: Hx Asthma, Other Respiratory Problems/Disorders - allergies to fragrances - used topical steroids in past Denies: Hx Chronic Obstructive Pulmonary Disease (COPD) GI History: Reports: Hx Gastroesophageal Reflux Disease - occassionally- OTC meds, Other GI Disorders - Hemmoriods and constipation Denies: Hx Ulcer History: Reports: Other Problems/Disorders - prostate CA in 2014 Denies: Hx Renal Disease Musculoskeletal History: Reports: Hx Arthritis - left hand, right shoulder , knees, Hx Tendonitis - right arm- in s Sensory History: Reports: Hx Cataracts - both, Hx Contacts or Glasses Denies: Hx Hearing Aid Opthamlomology History: Reports: Hx Cataracts - both, Hx Contacts or Glasses Neurological History: Reports: Hx Transient Ischemic Attacks (TIA) - 2014 Psychiatric History: Reports: Hx Anxiety Denies: Hx Panic Disorder - Cancer History Cancer Type, Location and Year: prostate CA, 2015 Hx Chemotherapy: No - radiation treatment - Surgical History Surgery Procedure, Year, and Place: Deviated septum surgery;. 2011 - Bone spur removal Left foot. VASECTOMY. colonoscopy w/snare polypectomy 2014. Ling event monitor implantation 11/2016 Hx Anesthesia Reactions: No - Immunization History Date of Tetanus Vaccine: utd Date of Influenza Vaccine: utd Infectious Disease History: No Infectious Disease History: Reports: Hx Shingles - 2013 Denies: Hx Clostridium Difficile, Hx Hepatitis, Hx Human Immunodeficiency Virus (HIV), Hx of Known/Suspected MRSA, Hx Tuberculosis, Hx Known/Suspected VRE , Hx Known/Suspected VRSA, History Other Infectious Disease, Traveled Outside the [place] in Last 30 Days - Family History Known Family History: Positive: Cardiac Disease, Diabetes Family History: Fhx of HLD - Social History Lives: With Family Alcohol Use: Daily Alcohol Amount: 2 oz. yulia a day Hx Substance Use: No Substance Use Type: Reports: None Hx Tobacco Use: No Smoking Status (MU): Never Smoked Tobacco Review of Systems Constitutional: Negative Negative: Fever, Chills, Fatigue, Skin Diaphoresis Eyes: Negative Negative: Photophobia, Blurred Vision, Diplopia ENT: Negative Negative: Dental Pain Cardiovascular: Negative Negative: Palpitations, Chest Pain Respiratory: Negative Negative: Shortness Of Breath, Cough Gastrointestinal: Negative Positive: see HPI Musculoskeletal: Negative Positive: Rash Neurological: Negative Positive: Anxious All Other Systems Reviewed And Are Negative: Yes Physical Exam Triage Information Reviewed: Yes Vital Signs On Initial Exam: Initial Vitals Temp Pulse Resp BP Pulse Ox 98.1 F 75 16 191/95 99 02/09/18 05:43 02/09/18 05:43 02/09/18 05:43 02/09/18 05:43 02/09/18 05:43 Vital Signs Reviewed: Yes Appearance: Positive: Well-Appearing, No Pain Distress - anxious but does not appear to have physical pain, Well-Nourished Skin: Positive: Warm, Skin Color Reflects Adequate Perfusion, Dry - scant areas of erythematous spots on forearms Head/Face: Positive: Normal Head/Face Inspection Eyes: Positive: Normal, EOMI, Conjunctiva Clear. Negative: Conjunctiva Inflammed, Discharge ENT: Positive: Normal ENT inspection, Hearing grossly normal, Pharynx normal - mucosa moist. Negative: Nasal congestion, Nasal drainage Neck: Positive: Supple, Nontender Respiratory/Lung Sounds: Positive: Clear to Auscultation, Breath Sounds Present. Negative: Rales, Rhonchi, Wheezes, Unable to speak in full sentences, Fatigue Cardiovascular: Positive: Pulses are Symmetrical in both Upper and Lower Extremities, Bradycardia - intermittent (NOTE: pt takes beta codie), Murmur, S1, S2. Negative: Leg Edema Left, Leg Edema Right Abdomen Description: Positive: Nontender, No Organomegaly, Soft Bowel Sounds: Positive: Present Musculoskeletal: Positive: Normal, Strength/ROM Intact, Other - pt ambulates independently and w/o difficulty Neurological: Positive: Normal, Sensory/Motor Intact, Alert, Oriented to Person Place, Time, CN Intact II-III Psychiatric: Positive: Anxious Diagnostics - Vital Signs Vital Signs Temp Pulse Resp BP Pulse Ox 02/09/18 06:50 63 16 175/98 95 02/09/18 05:43 98.1 F 75 16 191/95 99 - Laboratory Result Diagrams: 02/09/18 08:20 02/09/18 08:20 Lab Statement: Any lab studies that have been ordered have been reviewed, and results considered in the medical decision making process. Re-Evaluation - Re-Evaluation First Eval Change: Improved - systolic BP improved over course of stay from 190 - 160; pt reports he feels relieved Allergic Reaction Course/Dx - Course Course Of Treatment: Patient's assessment of increased systolic blood pressure noted this morning with routine check and onset of flushing do not appear to be the result of an acute life threatening pathology as per testing peformed here in ED. chest x-rays without acute findings. Labs are within normal limits. EKG is bradycardia sinus with LVH and no ST elevations. He was advised to refrain from any further Rapaflo as this could've caused a reaction for him. He will contact Dr. Rasmussen today to report his concerns as well as his success with urination as he's reported going 6 times since taking the medication and feels better from a urinary standpoint. He will also touch base with Dr. Edmond in the event that his blood pressure needs to be better controlled if it consistently remains elevated. He will also refrain from using any scented or fragranced topical analgesics. Review danger signs and symptoms with patient and prior to discharge. They agree with plan. - Diagnoses Provider Diagnoses: Hypertension Discharge - Sign-Out/Discharge Documenting (check all that apply): Discharge/Admit/Transfer - Discharge Plan Condition: Stable Disposition: HOME Patient Education Materials: Hypertension in the Older Adult (ED) Referrals: Leo Cardona MD [Primary Care Provider] - Yusuf Rasmussen MD [Medical Doctor] - Additional Instructions: The cause of your increase in hypertension was not definitively identified today however any acute pathology that could be life-threatening was ruled out including heart attack, aortic dissection, renal dysfunction, infection, electrolyte abnormality. Your blood pressure decreased over the time he were here and it was discussed that there may be an anxiety component. You are encouraged to relax and avoid stimulants such as caffeine, chocolate, alcohol until further investigation through your PCP. Call today for follow-up. We also discussed a potential skin reaction to a menthol muscle rub you've been using as of late. There is encouraged that you stop using this to see if her skin symptoms improve. It is also known that steroids can increase her blood pressure however he reported using only a minimal amount recently - avoid using if possible to prevent further secondary issues. He may use her other skin soothing techniques as directed by your biochemistry professor. Furthermore, he reported taking Rapaflo last night to aid in your urinary retention. Although this has helped urination, avoid taking any further medication until discussing with Dr. Rasmussen today as your symptoms could potentially be a reaction to this medication. Her chart indicates an allergy to Flomax in the past however the details are not clear. Call Dr. Rasmussen today for follow-up. *If he developed chest pain, headache, change in vision, facial swelling, throat tightness, difficulty breathing or shortness of breath, nausea vomiting, diffuse sweating, weakness, fatigue, numbness, tingling, weakness, worsening of skin condition, inability to urinate, return to the emergency department. - Billing Disposition and Condition Condition: STABLE Disposition: HOME
[2018-02-09 08:25] LABS: Urine Appearance Clear; Urine Blood Negative (Negative); Urine Color Colorless; Urine Ketones Negative (Negative); Urine Protein Negative (Negative); Urine Specific Gravity 1.001 (1.010-1.030); Urine Urobilinogen Negative (Negative)
--- NOTE | 2018-02-09 08:32 | RAD ---
INDICATION: Hypertension COMPARISON: November 25, 2016 TECHNIQUE: An AP portable view obtained at 0814 hours is submitted. FINDINGS: Bones/Soft Tissues: There are no acute bony findings. Cardiomediastinal: The cardiomediastinal silhouette is normal. Lungs: There are no infiltrates. Pleura: There are no pleural effusions. Other: None IMPRESSION: NORMAL CHEST.
[2018-02-09 08:34] LABS: ABS Basophils 0 10^3/ul (0-0.2); ABS Eosinophils 0.1 10^3/ul (0-0.6); ABS Lymphocytes 1.3 10^3/ul (1.0-4.8); ABS Monocytes 0.4 10^3/ul (0-0.8); ABS Neutrophils 2.5 10^3/ul (1.5-7.7); ABS Nucleated RBC 0 10^3/ul; Eosinophil % 1.7 % (0-6); Hematocrit 42 % (42-52); Hemoglobin 14.3 g/dl (14.0-18.0); Mean Corpuscular HGB Conc 34 g/dl (31-36); Mean Corpuscular Hemoglobin 31 pg (27-31); Mean Corpuscular Volume 89 fL (80-94); Mean Platelet Volume 8.3 um3 (7.4-10.4); Nucleated Red Blood Cells % 0; Platelet Count 195 10^3/ul (150-450); Red Blood Count 4.66 10^6/ul (4.0-5.4); Red Cell Distribution Width 14 % (10.5-15); White Blood Count 4.3 10^3/ul (3.5-10.8)
[2018-02-09 08:39] LABS: INR 0.89 (0.77-1.02)
[2018-02-09 08:47] LABS: EGFR Non-African American 101.8 (>60)
[2018-02-09 09:40] VITALS: BP 161/78
== END 2018-02-09 09:39 | disposition home or self-care (01) ==
LOC: ED 05:41
DX: I10 Essential (primary) hypertension (principal); R21 Rash and other nonspecific skin eruption; F41.9 Anxiety disorder, unspecified; Z86.79 Personal history of other diseases of the circulatory system; Z87.19 Personal history of other diseases of the digestive system; Z85.46 Personal history of malignant neoplasm of prostate
CPT/HCPCS: 36415; 71045; 80053; 81003; 83605; 83735; 84443; 84484; 85025; 85610; 85730; 93005; 99284

== ENCOUNTER 2018-04-21 08:47 | Emergency (ER) | payer MEDICARE, OTHER ==
[2018-04-21 09:11] VITALS: BP 120/66
--- NOTE | 2018-04-21 09:59 | UC ---
UC General HPI - HPI Summary HPI Summary: Pt is a 72 y/o M w/ c/o bilateral ankle edema and digestive problems. He does not think Sx are related and is most concerned about edema, which he states onset two weeks ago and has progressively worsened since. Pt denies pain in ankles. He describes his digestive system as feeling bloated and notes marginal pain, onsetting a couple of weeks ago. Pain is rated 1/10 on triage. He began using metamucil during this time and some time afterwards began taking antacids. He notes taking antacids more frequently recently. Pt had radiation therapy for prostate cancer which he states caused irritation and occasional bleeding in large intestine. - History of Current Complaint Chief Complaint: UCAbdominalPain Stated Complaint: ANKLE SWELLING,ABD PAIN Time Seen by Provider: 04/21/18 09:48 Hx Obtained From: Patient Onset/Duration: Lasting Weeks - edema: two weeks, digestive problems: "a couple weeks ago" Current Severity: Mild Pain Intensity: 1 Pain Location at: abdomen Associated Signs & Symptoms: Positive: Abdominal Pain - "bloated" feeling, Edema - ankles - Allergy/Home Medications Allergies/Adverse Reactions: Allergies Allergy/AdvReac Type Severity Reaction Status Date / Time cholestyramine Allergy Unknown Verified 04/21/18 09:12 Reaction Details colesevelam [From WelChol] Allergy Diarrhea Verified 04/21/18 09:12 fenofibrate Allergy Unknown Verified 04/21/18 09:12 Reaction Details gemfibrozil Allergy Unknown Verified 04/21/18 09:12 Reaction Details mirabegron [From Myrbetriq] Allergy Insomnia Verified 04/21/18 09:12 niacin Allergy Unknown Verified 04/21/18 09:12 Reaction Details oxycodone Allergy Rash Verified 04/21/18 09:12 simvastatin [From Zocor] Allergy Rash Verified 04/21/18 09:12 Uviswyc-Ems-Xge Reductase Allergy Rash Verified 04/21/18 09:12 Inhibitor tamsulosin [From Flomax] Allergy Unknown Verified 04/21/18 09:12 Reaction Details cat dander* Allergy Intermediate Sneezing Uncoded 07/06/17 13:17 PMH/Surg Hx/FS Hx/Imm Hx Endocrine History: Other Other Endocrine History: NEGATIVE: diabetes Respiratory History: Asthma, Other Other Respiratory History: NEGATIVE: COPD GI/ History: Other Other GI/ History: NEGATIVE: ulcer Cancer History: Other Other Cancer History: POSITIVE: prostate cancer Other History Of: Negative For: HIV, Anticoagulant Therapy - Surgical History Surgical History: Yes Surgery Procedure, Year, and Place: Deviated septum surgery;. 2011 - Bone spur removal Left foot. VASECTOMY. colonoscopy w/snare polypectomy 2014. Ling event monitor implantation 11/2016 - Family History Known Family History: Positive: Cardiac Disease, Diabetes Family History: Fhx of HLD - Social History Alcohol Use: None Alcohol Amount: stopped after starting medications Substance Use Type: None Smoking Status (MU): Never Smoked Tobacco - Immunization History Most Recent Influenza Vaccination: Review of Systems Gastrointestinal: Abdominal Pain - "bloated" feeling Musculoskeletal: Edema - ankles All Other Systems Reviewed And Are Negative: Yes Physical Exam - Summary Physical Exam Summary: General: well-appearing, no pain distress Skin: warm, color reflects adequate perfusion, dry Head: normal Eyes: EOMI, SHERRY ENT: normal Neck: supple, nontender Respiratory: CTA, breath sounds present Cardiovascular: RRR Abdomen: soft, nontender, normal bowel sounds Bowel: present Musculoskeletal: normal, strength/ROM intact; mild bilateral pedal edema Neurological: sensory/motor intact, A&O x3 Psychological: affect/mood appropriate Triage Information Reviewed: Yes Vital Signs: Initial Vital Signs Temp 97.8 F 04/21/18 09:04 Pulse 63 04/21/18 09:04 Resp 18 04/21/18 09:04 BP 120/66 04/21/18 09:04 Pulse Ox 99 04/21/18 09:04 Vital Signs Reviewed: Yes Course/Dx - Course Course Of Treatment: MINIMAL PEDAL EDEMA. ABDOMEN SOFT AND NON TENDER ON EXAM IN CLINIC, NO ABDOMINAL PAIN IN CLINIC. WILL CHECK CBC, CMP, BNP. F/U PMD; RECHECK SOONER IF WORSE. - Differential Dx - Multi-Symptom Provider Diagnoses: BILATERAL PEDAL EDEMA. ABDOMINAL CRAMPING Discharge - Sign-Out/Discharge Documenting (check all that apply): Patient Departure - Discharge Plan Condition: Stable Disposition: HOME Patient Education Materials: Leg Edema (ED), Abdominal Pain (ED) Referrals: Leo Cardona MD [Primary Care Provider] - Additional Instructions: FOLLOW UP WITH YOUR DOCTOR. GET RECHECKED FOR ANY WORSENING OF YOUR CONDITION; SHORTNESS OF BREATH, YOU FEEL ILL OR QUESTIONS OR CONCERNS. - Billing Disposition and Condition Condition: STABLE Disposition: Home
[2018-04-21 14:28] LABS: ABS Basophils 0 10^3/ul (0-0.2); ABS Eosinophils 0.1 10^3/ul (0-0.6); ABS Lymphocytes 1.3 10^3/ul (1.0-4.8); ABS Monocytes 0.5 10^3/ul (0-0.8); ABS Neutrophils 2.5 10^3/ul (1.5-7.7); ABS Nucleated RBC 0 10^3/ul; Eosinophil % 1.7 % (0-6); Hematocrit 39 % (42-52); Hemoglobin 13.8 g/dl (14.0-18.0); Lymphocyte % 28.7 % (25-47); Mean Corpuscular HGB Conc 35 g/dl (31-36); Mean Corpuscular Hemoglobin 32 pg (27-31); Mean Corpuscular Volume 91 fL (80-94); Nucleated Red Blood Cells % 0; Platelet Count 218 10^3/ul (150-450); Red Blood Count 4.32 10^6/ul (4.00-5.40); Red Cell Distribution Width 13 % (10.5-15); White Blood Count 4.4 10^3/ul (3.5-10.8)
[2018-04-21 14:44] LABS: EGFR Non-African American 93.2 (>60)
== END 2018-04-21 10:19 | disposition home or self-care (01) ==
LOC: UCEAST 08:47
DX: R60.0 Localized edema (principal); R10.9 Unspecified abdominal pain; J45.909 Unspecified asthma, uncomplicated; Z88.5 Allergy status to narcotic agent; Z88.8 Allergy status to other drugs, medicaments and biological substances; Z85.46 Personal history of malignant neoplasm of prostate; Z82.49 Family history of ischemic heart disease and other diseases of the circulatory system; Z83.3 Family history of diabetes mellitus; Z83.49 Family history of other endocrine, nutritional and metabolic diseases
CPT/HCPCS: 36415; 80053; 83880; 85025; 99211; G0463

== ENCOUNTER → 2018-12-14 05:54 | Day surgery (SDC) | payer MEDICARE ==
--- NOTE | 2018-12-04 14:56 | HP ---
AMENDED REPORT NOW INCLUDES COSIGNER DESIGNATION PREOPERATIVE HISTORY AND PHYSICAL: DATE OF ADMISSION/SURGERY: 12/14/18 DATE OF OFFICE VISIT/ENCOUNTER: 11/14/18 ATTENDING SURGEON: Kallie Llamas MD.* (DICTATED BY RUTH ANN GERBER) PROCEDURE: Left thumb carpometacarpal arthroplasty. CHIEF COMPLAINT: Left thumb pain. PRIMARY CARE PHYSICIAN: Dr. Cardona. SIX SIGMA BLACK TRAINER: Dr. Khan. HISTORY OF PRESENT ILLNESS: This is a 73-year-old male who complains of pain at the base of his left thumb. It has been ongoing for a few years now and was exacerbated in October 2016 when he had a fall. X-rays have shown severe degenerative arthritis at the left thumb CMC joint. He has had cortisone injection for this problem in the past and initially was doing well with that for pain relief, but the pain has become more persistent and the injection does not seem to be as helpful at this point. He would now like to proceed with surgery. He does have a cardiac history, is followed by Dr. Khan, and we will obtain medical clearance prior to proceeding with surgery. PAST MEDICAL HISTORY: 1. Hypertension. 2. Heart murmur. 3. Hyperlipidemia. 4. Aortic insufficiency. 5. Prostate cancer. 6. History of TIA 3 years ago and 5 years ago. 7. Anxiety. PAST SURGICAL HISTORY: 1. Heart monitor implant 3 years ago. 2. Left great toe surgery. 3. Cardiac catheterization in 2006. 4. Radiation therapy for prostate cancer. 5. Tonsillectomy. 6. Bilateral cataract removal. CURRENT MEDICATIONS: 1. Acetaminophen 325 mg 2 tablets q.6 hours p.r.n. pain. 2. Amlodipine besylate 5 mg daily. 3. Aspirin 81 mg daily. 4. Buspirone HCL 5 mg 3 times a day. 5. Calcium and vitamin D3 at 1200 mg once a week. 6. Cardura 1 mg daily. 7. Flaxseed oil 1000 mg twice a day. 8. Klor-Con M10 at 10 mEq 2 twice a day. 9. Lisinopril 20 mg daily. 10. Magnesium 200 mg once a week with calcium. 11. Melatonin 3 mg at night. 12. Metamucil 2 heaped teaspoons daily. 13. Metoprolol succinate ER 25 mg daily. 14. Multivitamins once a week. 15. Omeprazole 20 mg daily p.r.n. 16. Praluent 75 mg/mL 1 injection every 2 weeks. 17. Triamcinolone acetonide 0.1% apply topically to affected areas twice daily p.r.n. 18. Triamterene/hydrochlorothiazide 37.5/25 half tab daily. 19. Verapamil HCL ER 240 one tab in the morning and half tab at night. ALLERGIES: CHOLESTYRAMINE, FENOFIBRATE, FLOMAX, GEMFIBROZIL, LIPITOR, NIASPAN, PRAVASTATIN, and ZOCOR. FAMILY MEDICAL HISTORY: Noncontributory. SOCIAL HISTORY: Patient is retired. He lives with his . Denies tobacco use. No reactional drug use. He drinks alcohol on rare occasion. REVIEW OF SYSTEMS: Negative for general, cephalic, cardiovascular, respiratory , GI, , other musculoskeletal, integumentary, endocrine, neurologic and hematologic symptoms. Infectious Disease: Negative for MRSA, hepatitis C, HIV. PHYSICAL EXAMINATION GENERAL: Well-developed, well-nourished 73-year-old male, in no acute distress. VITAL SIGNS: Height 5 feet 5 inches, weight 195 pounds. Pulse rate 66, blood pressure 114/76. HEENT: Normocephalic, atraumatic. Pupils are equal, round, and reactive to light and accommodation. Extraocular movements are intact. Throat is clear. NECK: Supple. No palpable lymph nodes. PULMONARY: Lungs are clear to auscultation bilaterally. No wheezes, rales, or rhonchi. CARDIOVASCULAR: Regular rate and rhythm. S1, S2. Moderate murmur detected on auscultation. No rubs or gallops. No edema. ABDOMEN: Positive bowel sounds. Soft, nontender. NEUROLOGICAL: Alert and oriented x3. Cranial nerves II through XII are intact. Sensation is intact to light touch. MUSCULOSKELETAL: On exam of his left hand, he has tenderness at the CMC joint of the thumb. He also has tenderness over the ST-T joint region. CMC grind test is positive. He has full motion, but with pain. There is no instability. Skin is intact. Neurovascular function is intact. IMAGING STUDIES: X-rays of the left thumb show moderate to advanced osteoarthritis of the first carpometacarpal joint. IMPRESSION: Left thumb carpometacarpal arthritis. PLAN: Patient is scheduled to undergo a left thumb carpometacarpal arthroplasty with Dr. Llamas on 12/14/18. He will return to the office 10 days postop for followup and suture removal. A prescription for hydrocodone was e- scribed to the patient's pharmacy for postoperative pain management. We will obtain medical clearance prior to proceeding with surgery. RUTH ANN GERBER [id number]/[facility] #: [id number] HIRAL
--- NOTE | 2018-12-12 14:38 | HP ---
AMENDED REPORT NOW INCLUDES DESIGNATED COSIGNER PREOPERATIVE HISTORY AND PHYSICAL: DATE OF ADMISSION/SURGERY: 12/14/18 DATE OF OFFICE VISIT/ENCOUNTER: 12/10/18 ATTENDING SURGEON: Dr. Kallie Llamas.* (DICTATED BY RUTH ANN GERBER) PRIMARY CARE PHYSICIAN: Dr. Cardona. SEAM TAPER MACHINE: Dr. Khan. PROCEDURE: Left thumb carpometacarpal arthroplasty. CHIEF COMPLAINT: Left thumb pain. HISTORY OF PRESENT ILLNESS: This is a 73-year-old male who complains of pain at the base of his left thumb. It has been ongoing for a few years now and was exacerbated in October 2016 when he had a fall. 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 He has had cortisone injection for this problem in the past and initially was doing well with that for pain relief, but the pain has become more persistent and the injection does not seem to be as effective at this point. He has also failed physical therapy. He would now like to proceed with surgery. He has a cardiac history and is followed by Dr. Khan. We will obtain medical clearance prior to proceeding with surgery. The patient also reports some urine control problem secondary to history of prostate cancer. He is planning on bringing Depends with him to where during surgery as needed. PAST MEDICAL HISTORY: 1. Hypertension. 2. Heart murmur. 3. Hyperlipidemia. 4. Aortic insufficiency. 5. Prostate cancer with radiation therapy. 6. History of TIA x2, 3 years ago and 5 years ago. 7. Anxiety. PAST SURGICAL HISTORY: 1. Heart monitor implant 3 years ago. 2. Left great toe surgery. 3. Cardiac catheterization in 2006 for radiation therapy for prostate cancer. 4. Tonsillectomy. 5. Bilateral cataract removal. CURRENT MEDICATIONS: 1. Acetaminophen 325 mg 2 tabs q.6 hours p.r.n. pain. 2. Amlodipine besylate 5 mg daily. 3. Aspirin 81 mg daily. 4. Buspirone HCL 5 mg 3 times a day. 5. Calcium and vitamin D3 1200 mg once a week. 6. Cardura 1 mg daily. 7. Flaxseed oil 1000 mg twice a day. 8. Klor-Con M10 at 10 mEq 2 tabs twice daily. 9. Lisinopril 20 mg daily. 10. Magnesium 200 mg once a week with calcium. 11. Melatonin 3 mg at night. 12. Metamucil 2 heaped teaspoons daily. 13. Metoprolol succinate ER 25 mg daily. 14. Multivitamin once a week. 15. Omeprazole 20 mg daily p.r.n. 16. Praluent 75 mg/mL 1 injection every 2 weeks. 17. Triamcinolone acetonide 0.1% applied topically to affected areas b.i.d. p.r.n. 18. Triamterene/hydrochlorothiazide 37.5/25 half tab daily. 19. Verapamil HCL ER 240 mg 1 tab in the morning and half tab at night. ALLERGIES: CHOLESTYRAMINE, FENOFIBRATE, FLOMAX, GEMFIBROZIL, LIPITOR, NIASPAN, PRAVASTATIN, AND ZOCOR. FAMILY MEDICAL HISTORY: Noncontributory. SOCIAL HISTORY: The patient is retired. He lives with his . He denies tobacco use. No recreational drug use. He drinks alcohol on rare occasion. REVIEW OF SYSTEMS: Negative for general, cephalic, cardiovascular, respiratory , GI, other musculoskeletal, integumentary, endocrine, neurologic and hematologic symptoms. is positive for urine control problem and then infectious disease is negative for MRSA, hepatitis C, and HIV. PHYSICAL EXAMINATION GENERAL: A well-developed, well-nourished 73-year-old male in no acute distress. VITAL SIGNS: Height 5 feet 5 inches, weight 190 pounds, pulse rate 70, blood pressure 110/70. HEENT: Normocephalic, atraumatic. Pupils are equal, round, and reactive to light and accommodation. Extraocular movements are intact. Throat is clear. NECK: Supple. No palpable lymph nodes. PULMONARY: Lungs are clear to auscultation bilaterally. No wheezes, rales, or rhonchi. CARDIOVASCULAR: Regular rate and rhythm. S1 and S2. Moderate murmur detected on auscultation. No rubs or gallops. No edema. ABDOMEN: Positive bowel sounds, soft and nontender. NEUROLOGICAL: Alert and oriented x3. Cranial nerves II through XII are intact. Sensation is intact to light touch. MUSCULOSKELETAL: On exam of his left hand, he has tenderness at the CMC joint of the thumb. He also has tenderness over the ST-T joint region. CMC grind test is positive. He has full motion, but with pain. There is no instability. Neurovascular function is intact. SKIN: Skin is intact. IMAGING STUDIES: X-rays of the left thumb show moderate to advanced osteoarthritis of the first carpometacarpal joint. IMPRESSION: Left thumb carpometacarpal arthritis. PLAN: The patient is scheduled to undergo left thumb carpometacarpal arthroplasty with Dr. Llamas on 12/14/18. He will return to the office 10 days postop for followup and suture removal. A prescription for hydrocodone was e- scribed to the patient's pharmacy for postoperative pain management. We will obtain medical clearance prior to proceeding with surgery. RUTH ANN GERBER [id number]/SHARA #: [id number] HIRAL
[~2018-12-14 05:54] MED LIST changes: +Acetaminophen TAB* 325 MG PO PRN; -Buffered Lidocaine 0.9% SYRIN* 5 ML/SYR SYRINGE INTRADERM ONE; +Buffered Lidocaine 1% SYRIN* 1 ML/SYRINGE INTRADERM ONE; +Bupivacaine 0.5%* 50 ML VIAL ONE; +DiMENhydriNATE IV* 50 MG/ML VIAL IV PUSH PRN; +Lactated Ringers 1000 ML Bag* 1,000 ML IV SCH; +Lidocaine 2% PF * 5 ML VIAL ONE; +Midazolam* 1 MG/ML 2 ML VIAL (2 MG) ONE; +Naloxone* 0.4 MG/ML 1 ML VIAL IV PRN; +Propofol* 10 MG/ML 20 ML BTL ONE; +ceFAZolin 2 GM in NS PREMIX(*) 2 GM/100 ML BAG IVPB ONE; +fentaNYL* 50 MCG/ML 2 ML VIAL (100 MCG VIAL) IV PRN; +fentaNYL* 50 MCG/ML 2 ML VIAL (100 MCG VIAL) ONE; +oxyCODONE TAB* 5 MG TAB PO PRN
[2018-12-14 09:37] VITALS: BP 108/57
--- NOTE | 2018-12-14 10:06 | OP ---
CC: Dr. Llamas. OPERATIVE REPORT: DATE OF OPERATION: 12/14/18 DATE OF : 1945 SURGEON: Kallie Llamas MD. PRESS SHOP SUPERVISOR: RUTH ANN Hernández. ANESTHESIA: General. PRE-OP DIAGNOSIS: Carpometacarpal arthritis, left thumb. POST-OP DIAGNOSIS: Carpometacarpal arthritis, left thumb. PROCEDURE PERFORMED: Left thumb metacarpal arthroplasty. ESTIMATED BLOOD LOSS: Zero. TOURNIQUET TIME: About 30 minutes. INDICATIONS FOR PROCEDURE: Chan is a 73-year-old man who has painful arthritis at the base of his lef t thumb. He has failed conservative treatment and presents now for arthroplasty. DESCRIPTION OF PROCEDURE: The patient was brought to the operating room and was given a general anes thetic and placed in supine position on the operating table. The tourniquet was around his left upper arm. The skin to the left upper extremity was prepped and draped in the usual sterile fashion. The hand and forearm were exsanguinated, the tourniquet elevated to 250 mmHg. An S-shaped incision was made centered at the thumb and CMC joint. We dissected bluntly through the subcutaneous tissue. Bra nches of the radial sensory nerves were located and retracted by the surgical supply assistant, Kim galarza. The radial artery was then located and also retracted by the surgical supply assistant. A distally ba sed U-shaped flap was created over the thumb CMC joint and subperiosteally dissected off the trapezi um. The trapezium was then removed in its entirety. The wound was irrigated and the CMC joint capsu le was secured to the FCR tendon with 4-0 nylon suture. The remainder of the capsule was closed in a n interrupted fashion with 4-0 nylon suture to stabilize position of the MP joint in about 30 degrees of flexion. The wound was again was irrigated and the skin edges reapproximated with 4-0 nylon sutu re. The wound was dressed with Xeroform, 4x4s, Webril, and thumb spica splint with the metacarpal ab ducted. The patient tolerated the procedure well and was brought to the recovery room in good condit ion. [id number]/[facility] #: [id number]
== END | disposition home or self-care (01) ==
LOC: OR 05:54
PROVIDERS: ATTEND Orthopaedic Surgery
DX: M18.12 Unilateral primary osteoarthritis of first carpometacarpal joint, left hand (principal); I10 Essential (primary) hypertension; R01.1 Cardiac murmur, unspecified; E78.5 Hyperlipidemia, unspecified; Z85.46 Personal history of malignant neoplasm of prostate; I35.1 Nonrheumatic aortic (valve) insufficiency; Z86.73 Personal history of transient ischemic attack (TIA), and cerebral infarction without residual deficits; J45.909 Unspecified asthma, uncomplicated
CPT/HCPCS: 88304; 88311; J0690; J2250; J2704; J3010

== ENCOUNTER 2019-05-15 18:26 | Emergency (ER) | payer MEDICARE ==
--- OUTSIDE RECORDS SUMMARY | 2019-05-15 18:31 | XMS REPORT | Continuity of Care Document ---
:1945 External Reference #:[id number] Author Name Mt Reynolds, DO Address [address] [place] [address] Care Team Providers Name Role Phone Marissa Grossman PA Care Team Information Cleaning Specialist Unavailable Leo Cardona MD Primary Care Physician Unavailable Payers Date Identification Numbers Payment Provider Subscriber Policy Number: [id number] Medicare Ashwini Hurtadoley PayID: [id number] [facility] [address] [place] [address] Policy Number: [id number] [facility] Health Care Option Ashwini Corina Beard PayID: [id number] Claims, [address] [place] [address] Expires: 2019 Policy Number: [id number] [facility] Ashwini Corina Beard PayID: [id number] [address] [place] [address] Problems Active Problems Provider Date Pure hypercholesterolemia DONNA Rosales Onset: 02/03/2015 Essential hypertension DONNA Rosales Onset: 02/03/2015 Gastroesophageal reflux disease DONNA Rosales Onset: 02/03/2015 Screening for malignant neoplasm of colon DONNA Rosales Onset: Carcinoma in situ of prostate DONNA Rosales Onset: 02/03/2015 Social History Type Date Description Comments Sex Unknown Tobacco Use Start: Unknown End: Unknown Patient is a former smoker Smoking Status Reviewed: 04/01/19 Patient is a former smoker Allergies, Adverse Reactions, Alerts Active Allergies Reaction Severity Comments Date Statins 02/03/2015 Fenofibrate 03/27/2019 Flonase 02/03/2015 Oxycodone 03/27/2019 Rapaflo High Blood Pressure 03/27/2019 Simvastatin Skin Rash 03/27/2019 Colesevelam 03/27/2019 Medications Active Medications SIG Qnty Indications Ordering Date Provider Peg 3350/Electrolytes use as directed 4000ml Mt GailDO 04/01/2019 240gm Solution Rec Buspirone HCL Take 1/2 Tablet 45tabs Leo Cardona, 11/19/2018 10mg By Mouth Three MD Tablets Times Daily Triamterene/Hydrochlo take 1/2 tablet 45tabs Leo Cardona, 10/29/2018 rothiazide by mouth every MD 37.5-25mg day Tablets Losartan Potassium Take 1 Tablet By 60tabs Leo Cardona, 12/09/2014 50mg Mouth One Time MD Tablets Daily Lisinopril Take 2 Tablets By 180tabs Danae Calabrese NP 06/20/2012 20mg Tablets Mouth Every Day as Directed Verapamil HCL ER 1 tablet Am and 90tabs Danae Calabrese NP 12/23/2011 240mg 1/2 tablet PM Tablets ER Klor-Con M20 1 by mouth twice 90tabs Leo Cardona, 06/16/2009 20Meq daily MD Tablets ER Metoprolol Succinate 1 by mouth every Unknown ER day 25mg Tablets ER 24HR Aspirin Adult Low 1 by mouth every Unknown Dose day 81mg Tablets DR Praluent inject every two Unknown 75mg/ml weeks Solution Pen-Inject Amlodipine Besylate 1 by mouth every Unknown 5mg day Tablets Alprazolam take one tablet 30tabs Leo Cardona, 0.5mg by [id number] as MD Tablets needed for anxiety Myrbetriq 1 by mouth every Unknown 50mg Tablets in the evening ER 24HR Cardura 1 tab qd Unknown 1mg Tablets Fenofibrate Unknown 145mg Tablets PatIsmael Sanchez MD 0.1% Solution Naproxen Unknown 500mg Tablets Valacyclovir HCL Unknown 1gm Tablets Prednisone Unknown 5mg Tablets Tamsulosin HCL Grady, 0.4mg MD Yusuf Capsules Clonazepam Leo Cardona, 0.5mg MD Tablets Alfuzosin HCL ER Grady, 10mg MD Yusuf Tablets ER 24HR History Medications Colyte With Flavor as directed 4000ml Joe DemetrioJoe Hernández 02/16/2015 - Packs 03/31/2019 227.1gm Solution Rec Colyte-Flavor Packs As directed 1units 233.4 Dayanna Cantorlisa, 02/03/2015 - 4L TRASH COLLECTOR SUPERVISOR-C 02/06/2015 Solution Rec Triamterene/Hydrochlo Leo Cardona, - rothiazide 03/31/2019 37.5-25mg Tablets Losartan Potassium Maghaydah, - 50mg QuMD giuseppe 03/31/2019 Tablets Lisinopril Leo Cardona, - 20mg Tablets 03/31/2019 Verapamil HCL ER Ismael Vera MD - 240mg 03/31/2019 Tablets ER Klor-Con M20 Leo Cardona, - 20Meq 03/31/2019 Tablets ER Oxycodone-Acetaminoph Unknown - en 03/31/2019 5-325mg Tablets Vital Signs Date Vital Result Comment 04/01/2019 10:30am Height 65 inches 5'5" Weight 194.00 lb BP Systolic 138 mmHg BP Diastolic 72 mmHg Heart Rate 56 /min BMI (Body Mass Index) 32.3 kg/m2 02/03/2015 2:58pm Height 64 inches 5'4" Weight 194.00 lb BP Systolic 128 mmHg BP Diastolic 68 mmHg Heart Rate 82 /min BMI (Body Mass Index) 33.3 kg/m2 Results Test Date Facility Test Result H/L Range Note Laboratory test 05/03/2019 [facility] Surgical SEE RESULT 1, 2 finding Pathology BELOW CBC Auto Diff 02/23/2019 N2N/CCD Import White Blood 5.7 10^3/uL 3.5- 10.8 Count Red Blood Count 4.59 10^6/uL 4.18-5.48 Hemoglobin 14.5 g/dL 14-18 Hematocrit 42 % 42-52 Mean Corpuscular Volume 92 fL 80-94 Mean Corpuscular Hemoglobin 32 pg High 27-31 Mean Corpuscular HGB Conc 35 g/dL 31-36 Red Cell Distribution Width 13 % 10.5-15 Platelet Count 216 10^3/uL 150-450 Mean Platelet Volume 8.1 fL 7.4-10.4 Abs Neutrophils 3.4 10^3/uL 1.5-7.7 Abs Lymphocytes 1.5 10^3/uL 1-4.8 Abs Monocytes 0.6 10^3/uL 0-0.8 Abs Eosinophils 0.1 10^3/uL 0-0.6 Abs Basophils 0.0 10^3/uL 0-0.2 Abs Nucleated RBC 0.0 10^3/uL Granulocyte % 59.9 % Lymphocyte % 26.8 % Monocyte % 10.5 % Eosinophil % 2.1 % Basophil % 0.7 % Nucleated Red Blood Cells % 0.1 1 Inr/Protime 02/23/2019 N2N/CCD Import Inr 0.89 1 0.82-1.09 3 Lab Results 02/23/2019 N2N/CCD Import Partial Thrombo 28.4 s 26-36.3 Time PTT Comp Metabolic 02/23/2019 N2N/CCD Import Sodium 138 mmol/L 135-145 Panel Potassium 3.8 mmol/L 3.5-5 Chloride 107 mmol/L 101-111 Co2 Carbon Dioxide 25 mmol/L 22-32 Anion Gap 6 mmol/L 2-11 Glucose 106 mg/dL High 70-100 Blood Urea Nitrogen 10 mg/dL 6-24 Creatinine 0.81 mg/dL 0.67-1.17 BUN/Creatinine Ratio 12.3 1 8-20 Calcium 8.9 mg/dL 8.6-10.3 Total Protein 6.5 g/dL 6.4-8.9 Albumin 4.2 g/dL 3.2-5.2 Globulin 2.3 g/dL 2-4 Albumin/Globulin Ratio 1.8 1 1-3 Total Bilirubin 0.70 mg/dL 0.2-1 Alkaline Phosphatase 62 U/L 34-104 Alt 15 U/L 7-52 Ast 18 U/L 13-39 Egfr Non- 92.9 1 Egfr 112.4 1 4 Lab Results 02/23/2019 N2N/CCD Import Magnesium 2.2 mg/dL 1.9-2.7 Troponin I 0.00 ng/mL 5 TSH (Thyroid Stim Horm) 2.75 mcIU/mL 0.34-5.6 Lab Results 01/12/2019 N2N/CCD Import Magnesium 2.2 mg/dL 1.9-2.7 Troponin I 0.00 ng/mL 6 TSH (Thyroid Stim Horm) 3.37 mcIU/mL 0.34-5.6 Comp Metabolic Panel 01/12/2019 N2N/CCD Import Sodium 141 mmol/L 135- 145 Potassium 3.6 mmol/L 3.5-5 Chloride 108 mmol/L 101-111 Co2 Carbon Dioxide 26 mmol/L 22-32 Anion Gap 7 mmol/L 2-11 Glucose 101 mg/dL High 70-100 Blood Urea Nitrogen 11 mg/dL 6-24 Creatinine 0.79 mg/dL 0.67-1.17 BUN/Creatinine Ratio 13.9 1 8-20 Calcium 8.8 mg/dL 8.6-10.3 Total Protein 6.1 g/dL Low 6.4-8.9 Albumin 4.0 g/dL 3.2-5.2 Globulin 2.1 g/dL 2-4 Albumin/Globulin Ratio 1.9 1 1-3 Total Bilirubin 0.60 mg/dL 0.2-1 Alkaline Phosphatase 56 U/L 34-104 Alt 15 U/L 7-52 Ast 16 U/L 13-39 Egfr Non- 95.6 1 Egfr 115.7 1 7 Lab Results 01/12/2019 N2N/[employer] Import Lactic Acid 1.2 mmol/L 0.5-2 8 CBC Auto Diff 01/12/2019 N2N/CCD Import White Blood Count 6.1 10^3/uL 3.5-10.8 Red Blood Count 4.30 10^6/uL 4.18-5.48 Hemoglobin 13.4 g/dL Low 14-18 Hematocrit 39 % 36-46 Mean Corpuscular Volume 91 fL 80-94 Mean Corpuscular Hemoglobin 31 pg 27-31 Mean Corpuscular HGB Conc 34 g/dL 31-36 Red Cell Distribution Width 14 % 10.5-15 Platelet Count 198 10^3/uL 150-450 Mean Platelet Volume 8.1 fL 7.4-10.4 Abs Neutrophils 4.0 10^3/uL 1.5-7.7 Abs Lymphocytes 1.3 10^3/uL 1-4.8 Abs Monocytes 0.6 10^3/uL 0-0.8 Abs Eosinophils 0.2 10^3/uL 0-0.6 Abs Basophils 0 10^3/uL 0-0.2 Abs Nucleated RBC 0 10^3/uL Granulocyte % 65.6 % Lymphocyte % 21.1 % Monocyte % 10.0 % Eosinophil % 2.6 % Basophil % 0.7 % Nucleated Red Blood Cells % 0 1 CBC Auto Diff 12/16/2018 [facility] Import White Blood Count 6.8 10^3/uL 3.5-10.8 Red Blood Count 4.24 10^6/uL 4-5.4 Hemoglobin 13.2 g/dL Low 14-18 Hematocrit 39 % Low 42-52 Mean Corpuscular Volume 92 fL 80-94 Mean Corpuscular Hemoglobin 31 pg 27-31 Mean Corpuscular HGB Conc 34 g/dL 31-36 Red Cell Distribution Width 14 % 10.5-15 Platelet Count 195 10^3/uL 150-450 Mean Platelet Volume 8.3 fL 7.4-10.4 Abs Neutrophils 4.3 10^3/uL 1.5-7.7 Abs Lymphocytes 1.4 10^3/uL 1-4.8 Abs Monocytes 0.7 10^3/uL 0-0.8 Abs Eosinophils 0.3 10^3/uL 0-0.6 Abs Basophils 0.1 10^3/uL 0-0.2 Abs Nucleated RBC 0 10^3/uL Granulocyte % 64.0 % Lymphocyte % 21.3 % Monocyte % 10.2 % Eosinophil % 3.8 % Basophil % 0.7 % Nucleated Red Blood Cells % 0.1 1 Inr/Protime 12/16/2018 [employer] Import Inr 0.85 1 0.77-1.02 Lab Results 12/16/2018 [employer] Import Partial 25.4 s Low 26-36.3 Thrombo Time PTT Comp Metabolic 12/16/2018 [employer] Import Sodium 137 mmol/L 135-145 Panel Potassium 3.9 mmol/L 3.5-5 Chloride 105 mmol/L 101-111 Co2 Carbon Dioxide 27 mmol/L 22-32 Anion Gap 5 mmol/L 2-11 Glucose 93 mg/dL 70-100 Blood Urea Nitrogen 14 mg/dL 6-24 Creatinine 0.82 mg/dL 0.67-1.17 BUN/Creatinine Ratio 17.1 1 8-20 Calcium 8.5 mg/dL Low 8.6-10.3 Total Protein 6.1 g/dL Low 6.4-8.9 Albumin 3.8 g/dL 3.2-5.2 Globulin 2.3 g/dL 2-4 Albumin/Globulin Ratio 1.7 1 1-3 Total Bilirubin 0.50 mg/dL 0.2-1 Alkaline Phosphatase 49 U/L 34-104 Alt 13 U/L 7-52 Ast 19 U/L 13-39 Egfr Non- 91.6 1 Egfr 110.8 1 9 Laboratory test 02/20/2015 [facility] Surgical Interface SEE RESULT 10 finding Order BELOW Xray 01/23/2015 [facility] Radiology NM Bone Scan - <pending> Total Body 1 [id number] SEE RESULT BELOW Name: ASHWINI BEARD : [address]: Mt Reynolds DO Acct: [id number] Unit: [id number] AGE: 73 Location: [facility] Re05/03/19 SEX: M Status: DEP REF SPEC: [id number] STEPHEN: 05/03/19-[address] [facility] [address]: Mt Reynolds DO REQ: [id number] RECD: 05/03/19 STATUS: FERNANDO VILLANUEVA DR: Leo Rasmussen MD _ ORDERED: LEVEL 4 COMMENTS: [id number] FINAL DIAGNOSIS Colon, rectum, biopsy: -- Hyperplastic polyp. POST-OPERATIVE DIAGNOSIS Colonoscopy: to cecum; very tortuous; good prep; arteriovenous malformations ; rectal bleeding; external and internal hemorrhoids; biopsy polypectomy rectum GROSS DESCRIPTION The specimen is received in formalin labeled, Biopsy Rectal Polyp, and consists of a 0.4 x 0.2 x 0.2 cm kelley-pink polypoid soft tissue fragment which is submitted entirely in one cassette. Signed by and Reported on: Elmer Taylor MD [id number] END OF REPORT DEPARTMENT OF PATHOLOGY, [address] [place] [address] Elmer Taylor M.D. Director [facility] # [id number] SEE RESULT BELOW Name: ASHWINI BEARD : [address]: Mt Reynolds DO Acct: [id number] Unit: [id number] AGE: 73 Location: [facility] Re05/03/19 SEX: M Status: DEP REF SPEC: [id number] STEPHEN: 05/03/[address] [facility] [address]: tM Reynolds DO REQ: [id number] RECD: 05/03/19 STATUS: FERNANDO VILLANUEVA DR: Leo Rasmussen MD _ ORDERED: LEVEL 4 COMMENTS: [id number] FINAL DIAGNOSIS Colon, rectum, biopsy: -- Hyperplastic polyp. POST-OPERATIVE DIAGNOSIS Colonoscopy: to cecum; very tortuous; good prep; arteriovenous malformations ; rectal bleeding; external and internal hemorrhoids; biopsy polypectomy rectum GROSS DESCRIPTION The specimen is received in formalin labeled, Biopsy Rectal Polyp, and consists of a 0.4 x 0.2 x 0.2 cm kelley-pink polypoid soft tissue fragment which is submitted entirely in one cassette. Signed by and Reported on: Elmer Taylor MD [id number] END OF REPORT DEPARTMENT OF PATHOLOGY, [address] [place] [address] Elmer Taylor M.D. Director [facility] # [id number] 3 Standard intensity warfarin therapeutic range: 2.0-3.0 High intensity warfarin therapeutic range: 2.5-3.5 4 Because ethnic data is not always readily [...] 15-29 5 Kidney failure <15 (or dialysis) 5 Troponin-I testing on Plasma Separator Tubes (PST) has a known false positive rate of 0.20-0.40%. All positive troponins reflex immediately to secondary confirmatory testing. Using the [employer] DxI 800 Access Immunoassay systems, the 99th percentile upper reference limit was demonstrated to be < 0.03 ng/mL. 6 Troponin-I testing on Plasma Separator Tubes (PST) has a known false positive rate of 0.20-0.40%. All positive troponins reflex immediate secondary confirmatory testing. 7 Because ethnic data is not always readily [...] 15-29 5 Kidney failure <15 (or dialysis) 8 [facility] Severe Sepsis and Septic Shock Management Bundle Measure requires all lactic acids initially measuring >2.0 mmol/L be repeated. 9 Because ethnic data is not always readily [...] 15-29 5 Kidney failure <15 (or dialysis) 10 SEE RESULT BELOW Name: ASHWINI BEARD : [address]: Joe Hernández MD Acct: [id number] Unit: [id number] AGE: 69 Location: [facility] Re02/20/15 SEX: M Status: REG REF SPEC: [id number] STEPHEN: 02/20/15-[address] [facility] [address]: Joe Hernández MD REQ: [id number] RECD: 02/20/15 STATUS: FERNANDO VILLANUEVA DR: Leo Cardona MD _ ORDERED: LEVEL IV/2 FINAL DIAGNOSIS 1. Colon, right, biopsy: -- Sessile serrated adenoma. -- No high-grade dysplasia identified. 2. Colon, 35 cm, biopsy: -- Tubular adenoma. -- No high grade dysplasia or malignancy. CLINICAL HISTORY Screening colonoscopy POST-OPERATIVE DIAGNOSIS Screening colonoscopy into terminal ileum, prep good. Three polyps removed with cold snare. Conclusion: Three polyps removed. GROSS DESCRIPTION 1. The specimen is received in formalin labeled, Right Colon Polyp, and consists of a 0.8 x 0.7 x 0.2 cm aggregate of multiple kelley-pink irregular soft tissue fragments , which is submitted entirely in one cassette. 2. The specimen is received in formalin labeled, Colon Polyps at 35 cm, and consists of three kelley white irregular to polypoid soft tissue fragments ranging from 0.2 x 0.1 cm by less than 0.1 cm to 0.3 x 0.3 x 0.3 cm, which are submitted entirely in one cassette. Signed (signature on file) Elmer Taylor MD 1328 END OF REPORT * ML=Testing performed at Main Lab DEPARTMENT OF PATHOLOGY, [address] [place] [address] Elmer Taylor M.D. 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
--- OUTSIDE RECORDS SUMMARY | 2019-05-15 18:31 | XMS REPORT | Continuity of Care Document ---
:1945 External Reference #:[id number] Author Name Mt Reynolds, DO Address [address] [place] [address] Care Team Providers Name Role Phone Marissa Grossman PA Care Team Information Account Manager Employee Benefits Unavailable Leo Cardona MD Primary Care Physician Unavailable Payers Date Identification Numbers Payment Provider Subscriber Policy Number: [id number] Medicare Ashwini Hurtadoley PayID: [id number] [facility] [address] [facility] [place] [address] Policy Number: [id number] [facility] Health Care Option Ashwini Corina Beard PayID: [id number] Claims, [address] [place] [address] Expires: 2019 Policy Number: [id number] [facility] Ashwini Corina Beard PayID: [id number] [address] [place] [address] Problems Active Problems Provider Date Pure hypercholesterolemia [...] one tablet 30tabs Leo Cardona, 0.5mg by netlhp1c as MD Tablets needed for anxiety Myrbetriq [...] 1units 233.4 Dayanna Cantorlisa, 02/03/2015 - 4L DIRECTOR OF PARKS AND RECREATION-C 02/06/2015 Solution Rec Triamterene/Hydrochlo Leo Cardona, - [...] Result H/L Range Note Laboratory test 05/03/2019 [facility] [place] SEE RESULT 1, 2 finding Pathology [...] Egfr 115.7 1 7 Lab Results 01/12/2019 [employer] Import Lactic Acid 1.2 mmol/L 0.5-2 8 [...] % 0 1 CBC Auto Diff 12/16/2018 [employer] Import White Blood Count 6.8 10^3/uL 3.5-10.8 [...] Blood Cells % 0.1 1 Inr/Protime 12/16/2018 [email or web address] Import Inr 0.85 1 0.77-1.02 Lab Results 12/16/2018 [email or web address] Import Partial 25.4 s Low 26-36.3 Thrombo Time PTT Comp Metabolic 12/16/2018 [email or web address] Import Sodium 137 mmol/L 135-145 Panel Potassium [...] Egfr 110.8 1 9 Laboratory test 02/20/2015 [facility] [place] SEE RESULT 10 finding Order BELOW Xray 01/23/2015 [facility] [place] Rad[place] NM Bone Scan - <pending> Total Body 1 [id number] SEE RESULT BELOW Name: ASHWINI BEARD : [address]: Mt Reynolds DO Acct: [id number] Unit: [id number] AGE: 73 Location: [facility] Re05/03/19 SEX: M Status: DEP REF SPEC: [id number] STEPHEN: 05/03/19-[address] [facility] [address]: Mt Reynolds DO REQ: [id number] RECD: 05/03/19 STATUS: FERNANDO VILLANUEVA DR: Leo Rasmussen MD _ ORDERED: LEVEL 4 COMMENTS: [id number] FINAL DIAGNOSIS Colon, rectum, biopsy: -- Hyperplastic [...] by and Reported on: Elmer Taylor MD 1309 END OF REPORT DEPARTMENT OF PATHOLOGY, [address] [place] [address] Elmer Taylor M.D. Director [facility] # [id number] SEE RESULT BELOW Name: ASHWINI BEARD : [address]: Mt Reynolds DO Acct: [id number] Unit: [id number] AGE: 73 Location: [facility] Re05/03/19 SEX: M Status: DEP REF SPEC: [id number] STEPHEN: 05/03/[address] [facility] [address]: Mt Reynolds DO REQ: [id number] RECD: 05/03/19 STATUS: FERNANDO VILLANUEVA DR: Leo Rasmussen MD _ ORDERED: LEVEL 4 COMMENTS: [id number] FINAL DIAGNOSIS Colon, rectum, biopsy: -- Hyperplastic [...] by and Reported on: Elmer Taylor MD [id number] END OF REPORT DEPARTMENT OF PATHOLOGY, [address] [place] [address] Elmer Taylor M.D. Director [facility] # [id number] 3 Standard intensity warfarin therapeutic range: 2.0-3.0 [...] immediately to secondary confirmatory testing. Using the Zumper DxI 800 Access Immunoassay systems, the 99th [...] 5 Kidney failure <15 (or dialysis) 8 [facility] Severe Sepsis and Septic Shock Management [...] [address]: Joe Hernández MD Acct: [id number] Unit: [id number] AGE: 69 Location: [facility] Re02/20/15 SEX: M Status: REG REF SPEC: [id number] STEPHEN: 02/20/15-[address] [facility] [address]: Joe Hernández MD REQ: [id number] RECD: 02/20/15 STATUS: FERNANDO VILLANUEVA DR: Leo [...] performed at Main Lab DEPARTMENT OF PATHOLOGY, [address] [place] [address] Elmer Taylor M.D. 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
[2019-05-15 18:42] VITALS: BP 168/85
--- NOTE | 2019-05-15 18:48 | UC ---
Laceration HPI - HPI Summary HPI Summary: 73-year-old male presents with complaints of laceration to his left ring finger. States he was placing a metal box inside a metal filing cabinet, his finger became pinched between the edge of the box and edge of the cabinet, and he thinks he cut it on a piece of the metal cabinet. This occurred just prior to arrival. Bleeding was controlled with direct pressure prior to arrival. States tetanus is up-to-date. Has full ROM to finger. Denies any numbness or tingling. - History Of Current Complaint Chief Complaint: UCLaceration Stated Complaint: LEFT FINGER LAC Time Seen by Provider: 05/15/19 18:36 Hx Obtained From: Patient Pain Intensity: 1 - Allergies/Home Medications Allergies/Adverse Reactions: Allergies Allergy/AdvReac Type Severity Reaction Status Date / Time cholestyramine Allergy Intermediate Rash Verified 05/15/19 18:43 fenofibrate Allergy Intermediate Rash Verified 05/15/19 18:43 gemfibrozil Allergy Intermediate Unknown Verified 05/15/19 18:43 Reaction Details simvastatin [From Zocor] Allergy Intermediate Rash Verified 05/15/19 18:43 Lsbqdsi-Nrf-Hok Reductase Allergy Intermediate Rash Verified 05/15/19 18:43 Inhibitor niacin Allergy Unknown Unknown Verified 05/15/19 18:43 Reaction Details fluticasone [From Flonase] Allergy Unknown Verified 05/15/19 18:43 Reaction Details hydrocodone Allergy Rash And Verified 05/15/19 18:43 Itching oxycodone Allergy Rash Verified 05/15/19 18:43 silodosin [From Rapaflo] Allergy Unknown Verified 05/15/19 18:43 Reaction Details tramadol Allergy Rash And Verified 05/15/19 18:43 Itching colesevelam [From WelChol] AdvReac Diarrhea Verified 05/15/19 18:43 cat dander* Allergy Intermediate Sneezing Uncoded 05/15/19 18:43 PMH/Surg Hx/FS Hx/Imm Hx Endocrine History: Dyslipidemia Cardiovascular History: Hypertension GI/ History: Other - BPH Neurological History: TIA Psychological History: Anxiety Other History Of: Negative For: HIV, Anticoagulant Therapy - Surgical History Surgical History: Yes Surgery Procedure, Year, and Place: Deviated septum surgery;. 2011 - Bone spur removal Left foot. VASECTOMY. colonoscopy w/snare polypectomy 2014. Ling event monitor implantation 11/2016. Hand repair 12/2018. bilat cataract extraction with IOL 2017 - Family History Known Family History: Positive: Cardiac Disease, Diabetes Family History: Fhx of HLD - Social History Occupation: Retired Lives: With Family Alcohol Use: None Alcohol Amount: stopped after starting medications Substance Use Type: None Smoking Status (MU): Never Smoked Tobacco - Immunization History Most Recent Influenza Vaccination: Review of Systems All Other Systems Reviewed And Are Negative: Yes Constitutional: Negative: Fever, Chills Skin: Positive: Other - See HPI Respiratory: Positive: Negative Cardiovascular: Positive: Negative Gastrointestinal: Positive: Negative Genitourinary: Positive: Negative Motor: Negative: Weakness Neurovascular: Negative: Decreased Sensation Musculoskeletal: Negative: Decreased ROM Neurological: Positive: Negative Is Patient Immunocompromised?: No Physical Exam - Summary Physical Exam Summary: GENERAL APPEARANCE: Well developed, well nourished, alert and cooperative, and appears to be in no acute distress. CARDIAC: Normal S1 and S2. No S3, S4 or murmurs. Rhythm is regular. There is no peripheral edema, cyanosis or pallor. Extremities are warm and well perfused. Capillary refill is less than 2 seconds. Peripheral pulses intact. LUNGS: Clear to auscultation without rales, rhonchi, wheezing or diminished breath sounds. ABDOMEN: Positive bowel sounds. Soft, nondistended, nontender. No guarding or rebound. No masses or hepatosplenomegally. MUSKULOSKELETAL: ROM intact to all extremities. No joint erythema or tenderness. Normal muscular development. Normal gait. EXTREMITIES: Superficial J-shaped flap laceration to the medial aspect of the distal left ring finger without nail involvement. SKIN: Skin normal color, texture and turgor. Triage Information Reviewed: Yes Vital Signs: Initial Vital Signs Temp 97.5 F 05/15/19 18:33 Pulse 75 05/15/19 18:33 Resp 16 05/15/19 18:33 BP 168/85 05/15/19 18:33 Pulse Ox 99 05/15/19 18:33 Vital Signs Reviewed: Yes Laceration Repair - Laceration Repair 1 Description: Linear - J-shaped flap laceration Laceration Size After Repair: Length (cm) - 1 Cleansing Completed Via Routine Prep: Yes Closure Material: Skin Adhesive, SteriStrips Laceration Course/Dx - Course/Dx Course Of Treatment: 73-year-old male presents with complaints of laceration to his left ring finger. States he was placing a metal box inside a metal filing cabinet, his finger became pinched between the edge of the box and edge of the cabinet, and he thinks he cut it on a piece of the metal cabinet. This occurred just prior to arrival. Bleeding was controlled with direct pressure prior to arrival. States tetanus is up-to-date. Has full ROM to finger. Denies any numbness or tingling. Afebrile. Tends otherwise vital signs stable. Patient had a small superficial J-shaped flap laceration to the medial aspect of the distal left ring finger without nail involvement. The wound was cleansed and then the wound was repaired using a single 1/8 inch Steri-Strip and skin adhesive. Patient tolerated the procedure well. Wound care, anticipatory guidance, and warning symptoms were reviewed with the patient. Verbalizes understanding and agrees with plan of care. - Differential Dx - Laceration/Wound Differental Diagnoses: Avulsion, Laceration - Diagnosis Provider Diagnosis: Laceration of left ring finger Discharge - Sign-Out/Discharge Documenting (check all that apply): Patient Departure All imaging exams completed and their final reports reviewed: No Studies - Discharge Plan Condition: Stable Disposition: HOME Patient Education Materials: Laceration (ED), Skin Adhesive Care (ED), Steristrips (ED) Referrals: Leo Cardona MD [Primary Care Provider] - Additional Instructions: Your laceration as repaired with a combination of skin adhesive and Steri- Strips. The adhesive will slowly wear off over the next several days. Keep the adhesive dry for the next 24 hours. After 24 hours you may shower and wash your hands as ususal. Do not apply any lotions aor ointments to the adhesive as this may dissolve the adhesive and cause the wound to reopen. The Steri-Strips will slowly peel up from the ends over the next few days. You may trim the ends as needed but do not pull off or you may reopen the wound. Keep the wound covered with a dressing. Change this at least once a day or anytime the dressing becomes wet or soiled. Take acetaminophen (Tylenol) or ibuprofen (Advil, Motrin) according to directions as needed for pain. Watch for signs of infection including fever greater than 100.5 F, severe pain not managed with with pain medicine, redness that spreads, swelling of the finger, pus draining from the wound, or any worsening of symptoms. Seek immediate medical attention if any of these occur. - Billing Disposition and Condition Condition: STABLE Disposition: Home - Attestation Statements Provider Attestation: Per institutional requirements, I have reviewed the chart, however, I was not consulted specifically or made aware of this patient by the midlevel provider. I did not personally evaluate, interact with , or disposition this patient.
[2019-05-15] MEDS ORDERED: Benzoin Compound STICK TOPICAL ONE (19:28)
[2019-05-15] MEDS ORDERED: Acetaminophen TAB* 325 MG PO ONE (19:55)
[2019-05-15] MEDS ORDERED: Acetaminophen TAB* 325 MG ONE (20:04)
== END 2019-05-15 20:00 | disposition home or self-care (01) ==
LOC: UCEAST 18:26
DX: S61.215A Laceration without foreign body of left ring finger without damage to nail, initial encounter (principal); W26.8XXA Contact with other sharp object(s), not elsewhere classified, initial encounter; Y92.9 Unspecified place or not applicable; I10 Essential (primary) hypertension; E78.5 Hyperlipidemia, unspecified; F41.9 Anxiety disorder, unspecified; Z86.73 Personal history of transient ischemic attack (TIA), and cerebral infarction without residual deficits; Z88.5 Allergy status to narcotic agent
CPT/HCPCS: 99212; A9270-GY; G0463

== ENCOUNTER 2019-07-05 08:29 | Emergency (ER) | payer MEDICARE ==
[2019-07-05 08:43] VITALS: BP 134/74
--- NOTE | 2019-07-05 09:01 | UC ---
Respiratory Complaint HPI - HPI Summary HPI Summary: 2 WEEKS OF COUGH, RHINITIS, SINUS PRESSURE AND POSTNASAL DRAINAGE. NOT IMPROVING. PATIENT DENIES FEVER, NAUSEA/VOMITING. STATES HE HAD ONE EPISODE OF LOOSE STOOLS THIS MORNING WHICH PROMPTED HIM TO SEEK EVALUATION. - History of Current Complaint Chief Complaint: UCGeneralIllness Stated Complaint: COUGH Time Seen by Provider: 07/05/19 08:39 Hx Obtained From: Patient Onset/Duration: Gradual Onset, Lasting Weeks, Still Present Timing: Constant Severity Initially: Moderate Severity Currently: Moderate Pain Intensity: 0 Pain Scale Used: 0-10 Numeric Character: Cough: Nonproductive Aggravating Factors: Nothing Alleviating Factors: Nothing Associated Signs And Symptoms: Positive: URI, Nasal Congestion, Sinus Discomfort. Negative: Fever, Wheezing - Allergies/Home Medications Allergies/Adverse Reactions: Allergies Allergy/AdvReac Type Severity Reaction Status Date / Time cholestyramine Allergy Intermediate Rash Verified 07/05/19 08:44 fenofibrate Allergy Intermediate Rash Verified 07/05/19 08:44 gemfibrozil Allergy Intermediate Unknown Verified 07/05/19 08:44 Reaction Details simvastatin [From Zocor] Allergy Intermediate Rash Verified 07/05/19 08:44 Odaunhf-Pta-Bwg Reductase Allergy Intermediate Rash Verified 07/05/19 08:44 Inhibitor niacin Allergy Unknown Unknown Verified 07/05/19 08:44 Reaction Details fluticasone [From Flonase] Allergy Unknown Verified 07/05/19 08:44 Reaction Details hydrocodone Allergy Rash And Verified 07/05/19 08:44 Itching oxycodone Allergy Rash Verified 07/05/19 08:44 silodosin [From Rapaflo] Allergy Unknown Verified 07/05/19 08:44 Reaction Details tramadol Allergy Rash And Verified 07/05/19 08:44 Itching colesevelam [From WelChol] AdvReac Diarrhea Verified 07/05/19 08:44 cat dander* Allergy Intermediate Sneezing Uncoded 07/05/19 08:44 Home Medications: Home Medications ALPRAZolam TAB* [Xanax TAB*] 0.5 mg PO BEDTIME PRN 07/05/19 [History Confirmed 07/05/19] Aspirin EC TAB* [Ecotrin EC Low Dose 81 MG*] 81 mg PO DAILY 07/05/19 [History Confirmed 07/05/19] Ranitidine TAB (NF) [Zantac TAB (NF)] 150 mg PO BID PRN 07/05/19 [History Confirmed 07/05/19] PMH/Surg Hx/FS Hx/Imm Hx Cardiovascular History: Cardiac Disease, Hypertension Respiratory History: Asthma Cancer History: Prostate Cancer Other History Of: Negative For: HIV, Anticoagulant Therapy - Surgical History Surgical History: Yes Surgery Procedure, Year, and Place: Deviated septum surgery;. 2011 - Bone spur removal Left foot. VASECTOMY. colonoscopy w/snare polypectomy 2014. Ling event monitor implantation 11/2016. Hand repair 12/2018. bilat cataract extraction with IOL 2017 - Family History Known Family History: Positive: Cardiac Disease, Diabetes Family History: Fhx of HLD - Social History Alcohol Use: None Alcohol Amount: stopped after starting medications Substance Use Type: None Smoking Status (MU): Never Smoked Tobacco - Immunization History Most Recent Influenza Vaccination: Review of Systems All Other Systems Reviewed And Are Negative: Yes Constitutional: Positive: Negative ENT: Positive: Nasal Discharge, Sinus Congestion Respiratory: Positive: Cough Cardiovascular: Positive: Negative Gastrointestinal: Positive: Diarrhea Neurological: Positive: Negative Physical Exam Triage Information Reviewed: Yes Appearance: Well-Appearing, No Pain Distress, Well-Nourished Vital Signs: Initial Vital Signs Temp 97 F 07/05/19 08:38 Pulse 55 07/05/19 08:38 Resp 16 07/05/19 08:38 BP 134/74 07/05/19 08:38 Pulse Ox 98 07/05/19 08:38 Vital Signs Reviewed: Yes Eyes: Positive: Conjunctiva Clear ENT: Positive: Hearing grossly normal, Pharynx normal, TMs normal Neck: Positive: Supple, Nontender, No Lymphadenopathy Respiratory Exam: Normal Cardiovascular: Positive: RRR, Pulses Normal, Murmur:Sys:Grade _?_/ - 2/6 Abdomen Description: Positive: Soft Musculoskeletal: Positive: No Edema Neurological: Positive: Alert Psychological: Positive: Age Appropriate Behavior Skin: Negative: Rashes Respiratory Course/Dx - Course Course Of Treatment: LIKELY VIRAL RESPIRATORY INFECTION HOWEVER PATIENT WITH 2 WEEKS OF SYMPTOMS AND STATES NO IMPROVEMENT. GIVEN AGE AND COMORBIDITIES WILL COVER WITH ANTIBIOTIC. WILL STAY AWAY FROM MORE BROAD-SPECTRUM AGENTS GIVEN PATIENT'S LOOSE STOOLS TODAY. FOLLOW-UP WITH PCP IF NOT IMPROVING EXPECTED. - Differential Dx/Diagnosis Provider Diagnosis: Sinusitis, acute Discharge ED - Sign-Out/Discharge Documenting (check all that apply): Patient Departure All imaging exams completed and their final reports reviewed: No Studies - Discharge Plan Condition: Stable Disposition: HOME Prescriptions: Amoxicillin PO (*) [Amoxicillin 500 MG CAP*] 500 mg PO Q12H #20 cap Patient Education Materials: Sinusitis (ED) Referrals: Leo Cardona MD [Primary Care Provider] - If Needed Additional Instructions: YOUR SYMPTOMS MAY BE VIRALLY MEDIATED BUT GIVEN THE LENGTH OF TIME YOU HAVE BEEN ILL WE WILL COVER YOU WITH ANTIBIOTICS. IF YOU START THE MEDICINE BE SURE TO TAKE IT FOR THE FULL COURSE. REST, HYDRATE, OTC MEDS NEEDED. SEEK FOLLOW- UP WITH YOUR PCP IF YOU ARE NOT IMPROVING OVER THE NEXT 1-2 WEEKS. USE OTC AFRIN FOR NASAL CONGESTION. 2 SPRAYS IN EACH NOSTRIL TWICE DAILY NEEDED. DO NOT USE FOR MORE THAN 3-4 DAYS IN A ROW TO PREVENT DEVELOPING REBOUND CONGESTION. - Billing Disposition and Condition Condition: STABLE Disposition: Home
== END 2019-07-05 09:07 | disposition home or self-care (01) ==
LOC: UCEAST 08:29
DX: J01.90 Acute sinusitis, unspecified (principal); Z79.82 Long term (current) use of aspirin; I10 Essential (primary) hypertension; J45.909 Unspecified asthma, uncomplicated; Z85.46 Personal history of malignant neoplasm of prostate
CPT/HCPCS: 99212; G0463